=== PATIENT | female | born 1970 | race Caucasian/White ===

== ENCOUNTER → 2021-08-16 20:03 | Outpatient (CLI) | payer OTHER, SELFPAY ==
--- NOTE | 2021-08-16 | XR_ITS ---
PROCEDURE INFORMATION: Exam: XR Chest Exam date and time: 08/16/2021 12:00 AM Age: 51 years old Clinical indication: Smoker's cough; Patient HX: Productive cough, smoker, pna TECHNIQUE: Imaging protocol: XR of the chest. Views: 2 views. COMPARISON: CT ABDOMEN PELVIS WO CON 07/02/2019 2:09 PM FINDINGS: Lungs: Unremarkable. No consolidation. Pleural spaces: Unremarkable. No pleural effusion. No pneumothorax. Heart/Mediastinum: Unremarkable. No cardiomegaly. Bones/joints: Unremarkable. IMPRESSION: No acute findings.
== END ==
PROVIDERS: PCP Nurse Practitioner; Visit Provider Physician Assistant
DX: R05.9 Cough, unspecified (principal)
CPT/HCPCS: 71046

== ENCOUNTER → 2021-09-01 18:31 | Outpatient (CLI) | payer OTHER, SELFPAY | PROVIDERS: PCP Nurse Practitioner; Visit Provider Nurse Practitioner | DX: Z20.822 Contact with and (suspected) exposure to COVID-19 (principal) | CPT/HCPCS: C9803; U0003; U0005 ==

== ENCOUNTER 2021-10-16 19:18 | Emergency (ER) | payer OTHER, SELFPAY ==
[2021-10-16 20:54] VITALS: BP 142/61; PULSE 56; RESP 20; TEMP 36.6; O2SAT 98; BMI 19.1
[2021-10-16 21:16] LABS: UTC Influenza A Antigen Negative (Negative); UTC Influenza B Antigen Negative (Negative)
--- NOTE | 2021-10-16 21:28 | HMH.EDUTC ---
[facility] [place] Clinical Impression: Viral syndrome, Exposure to COVID-19 virus Pharyngitis Qualifiers: Pharyngitis/tonsillitis etiology: unspecified etiology Qualified Code(s): J02.9 - Acute pharyngitis, unspecified Disposition: Home, Self-Care Condition on Discharge: Good Instructions: DI for COVID-19 (Suspected or Confirmed ), Preventing the Spread of Coronavirus Discharge Instructions Additional Instructions: Drink plenty of fluids. Take tylenol or ibuprofen for pain or fever. Take the medications as directed. Follow up with your regular doctor. GO TO THE ER FOR ANY WORSENING SYMPTOMS Quarantine until you know the results of your covid-19 test. If it is positive, the health department should call you and give you further instructions about your length of Quarantine and other things. Notify your school or workplace of your results and follow their instructions regarding return to work/school. The cough medication (promethazine dm) will make you drowsy, so don't drive or operate heavy machinery after taking it. Prescriptions: Promethazine/Dextromethorphan [Promethazine-Dm Syrup] 5 ml PO Q6HP PRN #240 ml PRN Reason: Cough Transmission Status: Received by [id number] methylPREDNISolone [Medrol] 4 mg PO DIRECTED 6 Days #21 packet Transmission Status: Received by [id number] Azithromycin [Z-Rakesh 250mg Tab*] 250 mg PO UD DOSE PK #6 tab Transmission Status: Received by [facility] Referrals: Provider,Referral, MD [Primary Care Provider] - Forms: Work/School Release Time of Disposition: 21:56 Medical Decision Making - Medical Records Medical records reviewed: No: I reviewed the patient's medical records. - Tobias Inquiry Pt receiving controlled substance: No Vital Signs: 10/16/21 20:54 10/16/21 21:58 Temperature 97.9 F 97.9 F Temperature Source Oral Pulse Rate 56 L Pulse Rate [Left] 56 L Respiratory Rate 20 20 Blood Pressure 142/61 H Blood Pressure [Right Arm] 142/61 H Blood Pressure Mean [Right Arm] 88 02 Sat by Pulse Oximetry 98 - Lab Data Lab results reviewed: Yes: I reviewed the patient's lab results. Lab Results 10/16/21 20:43: Group A Strep Rapid Negative 10/16/21 20:44: Influenza Type A Ag Negative, Influenza Type B Ag Negative Orders (Tests/Meds): ORDERS Category Date Time Status Strep Screen Confirmation Stat Micro 10/16/21 20:43 Received [facility] [place] HPI - General Stated complaint: covid test/treated for symptoms Time Seen by Provider: 10/16/21 21:28 Mode of Arrival: Ambulatory Source of Information: Patient Limitations: No Limitations Description of Symptoms (Recalled from Triage Doc. by RN): PT C/O CHU, BODY ACHES, CHILLS AND A SORE THROAT. FAMILY IS COVID POSITIVE. EXPOSED TO FLU AT WORK. HEENT Symptoms (Recalled from RN notes): Yes Resp Symptoms (Recalled from RN notes): No Skin Symptoms (Recalled from RN notes): No MS Symptoms (Recalled from RN notes): No Functional Status (Recalled from RN notes): WNL - History of Present Illness Provider Complaint: She states that this morning she started to feel bad and have body aches. Through today she has felt progressively worse. She is coughing and having a sore throat now. She has been fully vaccinated against covid-19. - Related Data Home Medications Medication Instructions Recorded Confirmed Buspirone HCl [Buspar 10mg 0 mg .ROUTE DAILY 03/22/18 02/14/19 tablet] Metoprolol Succinate 25 mg PO DAILY 03/22/18 02/14/19 estradioL [Estradiol] 2 mg PO DAILY 03/22/18 02/14/19 lisinopriL [Lisinopril 10mg Tab] 10 mg PO DAILY 03/22/18 02/14/19 Previous Rx's Medication Instructions Recorded cephALEXin [Keflex 500mg Cap] 500 mg PO TID #30 cap 02/04/19 Azithromycin [Z-Rakesh 250mg Tab*] 250 mg PO UD DOSE PK #6 tab 10/16/21 Promethazine/Dextromethorphan 5 ml PO Q6HP PRN #240 ml 10/16/21 [Promethazine-Dm Syrup] methylPREDNISolone [Medrol] 4 mg PO DIRECTED 6
[2021-10-16 21:50] LABS: Strep Scrn Group A (Rapid) Negative (Negative)
[2021-10-16 21:58] VITALS: BP 142/61; PULSE 56; RESP 20; TEMP 36.6
== END 2021-10-16 22:00 | disposition home or self-care (01) ==
PROVIDERS: Emergency Provider Nurse Practitioner Family
DX: B34.9 Viral infection, unspecified (principal); J02.9 Acute pharyngitis, unspecified; F17.210 Nicotine dependence, cigarettes, uncomplicated
CPT/HCPCS: 87430; 87804; 99203; C9803; G0463; U0003; U0005

== ENCOUNTER → 2022-02-23 08:12 | Outpatient (CLI) | payer OTHER, SELFPAY ==
[2022-02-22 18:47] LABS: Basophils % 0.5 % (0.1-2.0); Eosinophils # 0.1 K/mm3 (0.0-0.4); Eosinophils % 0.7 % (0.1-12.0); Hematocrit 42.8 % (37.0-47.0); Hemoglobin 14.3 g/dL (12.2-16.2); Lymphocytes % 15.3 % (10-50); Mean Corpuscular HGB Conc 33.3 g/dL (31.8-35.4); Monocytes # 0.2 K/mm3 (0.1-1.0); Monocytes % 2.7 % (1.7-9.3); Neutrophils # 5.4 K/mm3 (1.8-7.8); Neutrophils % 80.8 % (37.0-80.0); Platelet Count 268 K/mm3 (142-424); Red Blood Count 3.96 M/mm3 (4.20-5.40); Red Cell Distribution Width 13.9 % (11.5-17.5); White Blood Count 6.7 K/mm3 (4.8-10.8)
[2022-02-22 18:52] LABS: Alanine Aminotransferase 25 U/L (12-78); Albumin Level 3.7 g/dl (3.5-5.0); Albumin/Globulin Ratio 1.3 (1.1-1.8); Alkaline Phosphatase 75 U/L (38-126); Anion Gap 10.4 mEq/L (5-15); Aspartate Amino Transferase 28 U/L (14-36); Blood Urea Nitrogen 14 mg/dl (7-17); Calcium 9.3 mg/dl (8.4-10.2); Carbon Dioxide 25 mmol/L (22.0-30.0); Chloride 106 mmol/L (98-107); Chol/HDL Ratio 2.4 (1-3.5); Cholesterol 181 mg/dl (140-200); Estimated Glomerular Filt Rate 105 ml/min (>60); GFR (African American) 128 ML/MIN (>60); Globulin 2.8 g/dL (1.3-3.2); Glucose 110 mg/dl (74-100); HDL Cholesterol 77 mg/dl (40-60); Potassium 4.4 mmoL/L (3.5-5.1); Sodium 137 mmol/L (136-145); Total Protein,Serum 6.5 g/dl (6.3-8.2); Triglycerides 242 mg/dl (30-150); VLDL Cholesterol 48 mg/dL (0-40)
[2022-02-22 18:56] LABS: Bilirubin,Total 0.1 mg/dl (0.2-1.3)
[2022-02-22 19:03] LABS: Direct LDL Cholesterol 70.24 mg/dL (100-129)
[2022-02-22 19:04] LABS: Hemoglobin A1C 5.1 % (4.0-6.0)
[2022-02-22 19:23] LABS: Thyroid Stimulating Hormone 0.52 uIU/mL (0.465-4.68)
[2022-02-22 19:38] LABS: 25-OH Vitamin D, Total 70.9 ng/mL (30-100)
[2022-02-24 08:22] LABS: HIV Screen 4th Generation wRfx Non Reactive (Non Reactive)
[2022-02-24 18:22] LABS: Peripheral Smear Review Scanned Result
[2022-02-26 20:09] LABS: Hep A Ab, IgM NEGATIVE; Hepatitis B Core Antibody IgM NEGATIVE; Hepatitis B Surface Antigen NEGATIVE; Hepatitis C Antibody <0.1
== END ==
PROVIDERS: Visit Provider Physician Assistant
DX: D72.829 Elevated white blood cell count, unspecified (principal); R73.9 Hyperglycemia, unspecified; Z76.89 Persons encountering health services in other specified circumstances; Z11.4 Encounter for screening for human immunodeficiency virus [HIV]
CPT/HCPCS: 80053; 80061; 80074; 82306; 83036; 84443; 85025; 86703; G0432

== ENCOUNTER → 2022-04-19 10:23 | Outpatient (CLI) | payer OTHER, SELFPAY ==
--- NOTE | 2022-04-19 10:29 | XR_ITS ---
FINAL REPORT CLINICAL HISTORY: painx 1 week ago FINDINGS: RIGHT WRIST Four views of the right wrist demonstrate no acute fracture or dislocation. The visualized joint spaces are normally aligned. The soft tissues are unremarkable. IMPRESSION: No acute bony abnormality. Reviewed, Interpreted and Dictated by Daquan Myers III, MD Transcribed by Ruth Figueroa Authenticated and [facility]
--- NOTE | 2022-04-19 10:29 | XR_ITS ---
FINAL REPORT CLINICAL HISTORY: pain after a fall 1 week ago FINDINGS: RIGHT HAND Three views demonstrate no acute fracture. There is no dislocation. The visualized joint spaces are normally aligned. The soft tissues are unremarkable. IMPRESSION: No acute bony abnormality. Reviewed, Interpreted and Dictated by Daquan Myers III, MD Transcribed by Ruth Figueroa Authenticated and [facility]
--- NOTE | 2022-04-19 10:29 | XR_ITS ---
FINAL REPORT CLINICAL HISTORY: lumbar pain FINDINGS: SACRUM/COCCYX Three views were obtained. There is no acute fracture or dislocation. The joint spaces are intact. There is no soft tissue abnormality. IMPRESSION: No acute bony abnormality. Reviewed, Interpreted and Dictated by Daquan Myers III, MD Transcribed by Ruth Figueroa Authenticated and [facility]
--- NOTE | 2022-04-19 10:30 | XR_ITS ---
FINAL REPORT CLINICAL HISTORY: lumbar pain FINDINGS: LUMBAR SPINE 5 views of the lumbar spine were obtained. There is no evidence of fracture or dislocation. The vertebral alignment is normal. There is mild degenerative change. There is facet arthropathy in the mid and lower lumbar spine. No paraspinous soft tissue abnormalities identified. IMPRESSION: Degenerative change with no acute bony abnormality. Reviewed, Interpreted and Dictated by Daquan Myers III, MD Transcribed by Ruth Figueroa Authenticated and [facility]
== END ==
PROVIDERS: PCP Physician Assistant; Visit Provider Physician Assistant
DX: M25.531 Pain in right wrist (principal); M54.50 Low back pain, unspecified; M53.3 Sacrococcygeal disorders, not elsewhere classified; W10.8XXA Fall (on) (from) other stairs and steps, initial encounter
CPT/HCPCS: 72110; 72220; 73110; 73130

== ENCOUNTER → 2022-05-05 16:12 | Outpatient (CLI) | payer OTHER, SELFPAY ==
--- NOTE | 2022-05-05 16:18 | MR_ITS ---
PROCEDURE INFORMATION: Exam: MR Right Upper Extremity Other Than Joint Without Contrast; Hand Exam date and time: 05/05/2022 4:47 PM Age: 52 years old Clinical indication: Pain; Additional info: Right thumb pain R/O ligament injury TECHNIQUE: Imaging protocol: MR of the Right upper extremity without contrast. Exam focused on the hand. COMPARISON: 1. CR XR HAND RT MIN 3V 04/19/2022 10:45 AM 2. CR XR WRIST RT W SCAPHOID 04/19/2022 10:45 AM FINDINGS: Limitations: The large nxvpq-td-qegp utilized to image the wrist through fingertips including a significant amount of the air surrounding the hand results in proportionally lower anatomic detail. Inhomogeneous fat suppression is present. The included single STIR sequence is best utilized to assess for edema. Bones and cartilage: Assessment of the wrist is limited but there is a fracture involving the body of the scaphoid with surrounding edema. Joint spaces: A mild effusion involves the thumb metacarpophalangeal joint. Collateral ligaments of digits: The thumb collateral ligaments appear grossly intact within the limits of the large ecdod-zm-cwni and nonanatomic imaging planes relative to the thumb metacarpophalangeal joint. Flexor compartment tendons: Unremarkable. No evidence of tear. Extensor compartment tendons: Unremarkable. No evidence of tear. Muscles: Unremarkable. Soft tissues: Lkaw-xq-yhugoyqa soft tissue edema involves the dorsum and hang of the hand and surrounds the thumb metacarpophalangeal joint. IMPRESSION: 1. Limited assessment of a fracture of the body of the scaphoid with surrounding edema. 2. Grossly intact thumb ligaments but study is suboptimal due to large qaooi-as-qzzc and nonanatomic orientation of imaging through the thumb. 3. Limited study due to large jksvl-ct-wmzm extending from the proximal carpal row through the fingertips and including a significant amount of surrounding air. COMMENTS: A request for a conference call with the ordering provider or ordering provider's care team was submitted at 11:53 AM EDT on 05/06/2022.
== END ==
PROVIDERS: PCP Physician Assistant; Visit Provider Physician Assistant
DX: M79.644 Pain in right finger(s) (principal)
CPT/HCPCS: 73218

== ENCOUNTER → 2022-05-10 11:09 | Outpatient (CLI) | payer OTHER, SELFPAY ==
--- NOTE | 2022-05-10 11:15 | XR_ITS ---
FINAL REPORT CLINICAL HISTORY: right wrist injury; limited mobility due to pain COMPARISON: 04/19/2022 FINDINGS: Right wrist Three views were obtained. There is no acute fracture or dislocation. There are mild degenerative changes at the radial aspect of the wrist. No soft tissue abnormality is identified. IMPRESSION: No acute process. Reviewed, Interpreted and Dictated by Daquan Myers III, MD Transcribed by Elke Francisco Authenticated and [facility]
== END ==
PROVIDERS: PCP Physician Assistant; Visit Provider Orthopaedic Surgery
DX: S69.91XA Unspecified injury of right wrist, hand and finger(s), initial encounter (principal)
CPT/HCPCS: 73110

== ENCOUNTER → 2022-05-30 11:10 | Outpatient (CLI) | payer OTHER, SELFPAY ==
--- NOTE | 2022-05-30 | CA_ITS ---
APPROVED REPORT Exam: Pharmacologic Technologist: Monica Ellington Ht: 5 ft 5 in Wt: 102 lbs BSA: 1.49 m2 HR: 50 bpm BP: 103/60 mmHg Indications: Shortness of Air Medical History Medications: Lisinopril,,,,, Metoprolol,,,,, Buspirone,,,,, Estradiol,,,,, Stress Test Details Test: LEXISCAN HR Resting HR: 52 bpm Max Heart Rate (APMHR): 169.767818 bpm Max HR Achieved: 98 bpm Target HR (85% APMHR): 143.641438 bpm % of APMHR: 57.99 Recovery HR: 60 bpm BP Resting BP: 103.0/60.0 mmHg Max BP: 107.0/55.0 mmHg Recovery BP: 107.0/55.0 mmHg ECG Clinical Exercise duration: 04:00 min Highest Stage Achieved: Exercise capacity: 1.0 METs Stress ECG Conclusion Symptoms: Shortness of air Arrhythmias/Ectopy: None ST-T Changes: < 1.[address] changes Electronically signed by : Pop Clark MD 05/30/2022 18:14:42
--- NOTE | 2022-05-30 11:15 | NM_ITS ---
APPROVED REPORT Exam: Nuclear Stress Test Indication: SOB, Palpitations, Syncope, Fatigue, AAA, HTN, DM, High cholesterol, Tobacco use Patient Location: Outpatient Stress Tech: Monica Ellington ID Tech:Karoline Burrell, ARRT, RT (R)(N) Ht: 5 ft 5 in Wt: 96 lbs Bra Size: B HR: 52 bpm BP: 103/60 mmHg BSA: 1.45 m2 TID: 1.23 BMI: 15.9 History: SOB, Palpitations, Syncope, Fatigue, AAA, HTN, DM, High cholesterol, Tobacco use Procedure: Patient received a 0.4 mg of intravenous Lexiscan, resting heart rate 52 bpm, resting blood pressure 103/60 mmHg, with Lexiscan maximum heart rate achived was 98 bpm which is Less than 85 % of the maximum predicted heart rate and blood pressure was 107/55 mmHg. With Lexiscan, patient denied any complaint of chest pain. Electrocardiogram Resting electrocardiogram showed sinus bradycardia, with Lexiscan there is less than 1.[address] segment depression noted from the baseline EKG. The EKG portion of the Lexiscan is nondiagnostic. Cardiac Stress and Resting SPECT Images: Cardiac Stress and Resting SPECT images were obtained using technetium 99m Myoview 30.6 mCi stress and 10.07 mCi at rest. Gated SPECT analysis of segmental wall motion and calculation of the ejection fraction also done. Prone images were also obtained. Cardiac stress and rest SPECT images show uniform myocardial activity without segmental perfusion abnormality, computer derived ejection fraction is 48% with no regional wall motion abnormality, right ventricle is normal size and contractility. Conclusion: 1. The EKG portion of the Lexiscan is nondiagnostic. 2. No scintigraphic evidence of reversible ischemia seen, computer derived ejection fraction is 48% with no regional wall motion abnormality, right ventricle is normal size and contractility. 3. Normal Lexiscan Myoview study. Electronically signed by : Pop Clark MD 05/30/2022 18:17:29
--- NOTE | 2022-05-30 11:15 | US_ITS ---
FINAL REPORT CLINICAL HISTORY: smoker, hypertension FINDINGS: Limited sonographic images were obtained of the abdomen to evaluate the abdominal aorta and iliac arteries. The abdominal aorta measures up to 1.8 cm in greatest dimension. The iliac arteries are within normal limits. IMPRESSION: No evidence of abdominal aortic aneurysm. Reviewed, Interpreted and Dictated by Daquan Myers III, MD Transcribed by Ruth Figueroa Authenticated and [facility]
--- NOTE | 2022-05-30 13:21 | HMH.ITSHM ---
Current Home Medications as stated by this patient Paulino Gleason or sales representative metals. []SPIRONOLACTONE MEOTPROLOL MAGNESIUM LOSARTAN FUROSEMIDE ESTRADIOL CELECOXIB BUSPIRONE BUPORPION ATORVASTATIN AMLODIPINE
== END ==
PROVIDERS: PCP Physician Assistant; Visit Provider Internal Medicine Cardiovascular Disease
DX: R09.89 Other specified symptoms and signs involving the circulatory and respiratory systems (principal); I71.4 Abdominal aortic aneurysm, without rupture; I50.30 Unspecified diastolic (congestive) heart failure; I65.29 Occlusion and stenosis of unspecified carotid artery; I10 Essential (primary) hypertension; E78.5 Hyperlipidemia, unspecified; R60.0 Localized edema; Z72.0 Tobacco use
CPT/HCPCS: 76705; 78452; 93017; A9502; J2785

== ENCOUNTER → 2022-06-10 15:50 | Outpatient (CLI) | payer OTHER, SELFPAY ==
--- NOTE | 2022-06-10 15:54 | XR_ITS ---
FINAL REPORT CLINICAL HISTORY: hand fracture FINDINGS: 3 views of the right hand were obtained. There is no acute fracture or dislocation. The joint spaces are intact. There is no soft tissue abnormality. IMPRESSION: No acute process. Reviewed, Interpreted and Dictated by Daquan Myers III, MD Transcribed by Corby Segundo Authenticated and [facility]
== END ==
PROVIDERS: PCP Physician Assistant; Visit Provider Orthopaedic Surgery
DX: S62.91XA Unspecified fracture of right hand, initial encounter for closed fracture (principal)
CPT/HCPCS: 73130

== ENCOUNTER 2022-06-20 08:12 | Day surgery (SDC) | payer OTHER, SELFPAY ==
[2022-06-20] VITALS (11 sets, daily range): BP systolic 85–120; BP diastolic 47–71; PULSE 50–60; RESP 16–22; O2SAT 92–100; BMI 16.9
--- NOTE | 2022-06-20 07:04 | IR_ITS ---
APPROVED REPORT Patient Location: Outpatient PROCEDURES Left heart catheterization Left ventriculogram Selective coronary angiogram Bilateral selective renal angiography Bare-metal stent deployment to the ostial proximal right renal artery INDICATION Coronary artery disease, Angina pectoris, Abnormal stress test, Renal artery stenosis, Renovascular hypertension Informed consent was obtained prior to the procedure. COMPLICATIONS None Estimated Blood Loss: Less than 10 mls TECHNIQUE One percent lidocaine used to anesthetize the right anterior aspect of the wrist. The right radial artery was accessed via the Seldinger technique. A 6 Mohawk sheath was placed in the right radial artery. 2.5 mg of verapamil, 800 mcg of nitroglycerin, 1mg Lidocaine and 5000 U Heparin were given through the arterial sheath. The papa catheter was also used to perform left heart catheterization, left ventriculogram and selective coronary angiogram. At the end the diagnostic heart catheterization the guide catheter was used to perform bilateral selective renal angiography. There was at least a 25 mm gradient upon pullback with a catheter from the right renal artery. At this point therapeutic heparin was administered followed by therapeutic ACT and the guide catheter was placed back into the right renal artery. A Choice PT extra-support wire was placed distally and a 6 mm x 15 mm Herculink stent was deployed at 14 sam reducing the hemodynamically and angiographically moderate stenosis to 0%. After achieving excellent angiograph results apparatus was removed the sheath was removed and hemostasis achieved using TR banding patient was transferred to the postop holding area stable condition ANGIOGRAPHIC RESULTS The left main artery Normal The left anterior descending artery Proximally normal with mild 10% luminal irregularities The circumflex artery Nondominant with mild luminal irregularities The right coronary artery Dominant with mild proximal and mid vessel 10 to 20% stenoses The PACKER ventriculogram reveals Slightly hyperdynamic at 70% The left ventricular end-diastolic pressure 25 mmHg Right renal artery singular and has a hazy moderate 50% stenosis in the ostial proximal segment which produced at least a 25 mm Lopez stenotic gradient Left renal artery singular normal IMPRESSION Mild nonflow limiting coronary disease Hyperdynamic ventricle secondary to hypertensive heart disease Elevated LVEDP secondary to hypertensive heart disease and diastolic dysfunction Severe right renal artery stenosis with successful stenting reducing the stenosis to 0% with 1 bare-metal stent PLAN 1. Dual antiplatelet therapy for 1 month 2. LDL less than 55 to be achieved with high intensity statin 3. Avoidance of tobacco products 4. Risk factor modification 5. Cardiac rehabilitation Electronically signed by : Myron Millard MD 06/20/2022 13:13:00
[2022-06-20 08:24] LABS: Coronavirus 19, PCR Not Detected (NotDetected); Influenza A, PCR Not Detected (NotDetected); Influenza B, PCR Not Detected (NotDetected)
[2022-06-20 08:40] LABS: Basophils # 0.1 K/mm3 (0-0.2); Basophils % 1.1 % (0.1-2.0); Eosinophils # 0.1 K/mm3 (0.0-0.4); Eosinophils % 2.5 % (0.1-12.0); Hematocrit 37.1 % (37.0-47.0); Hemoglobin 11.7 g/dL (12.2-16.2); Lymphocytes # 1.8 K/mm3 (0.7-4.5); Lymphocytes % 36.3 % (10-50); Mean Corpuscular HGB Conc 31.6 g/dL (31.8-35.4); Mean Corpuscular Hemoglobin 35.8 pg (27.0-31.2); Mean Corpuscular Volume 113.1 fl (81-99); Mean Platelet Volume 9.2 fl (7.4-10.4); Monocytes # 0.3 K/mm3 (0.1-1.0); Monocytes % 6.2 % (1.7-9.3); Neutrophils # 2.7 K/mm3 (1.8-7.8); Neutrophils % 53.9 % (37.0-80.0); Platelet Count 289 K/mm3 (142-424); Red Blood Count 3.28 M/mm3 (4.20-5.40); Red Cell Distribution Width 13.5 % (11.5-17.5)
[2022-06-20 08:50] LABS: Chloride 105 mmol/L (98-107); Sodium 138 mmol/L (136-145)
[2022-06-20 08:51] LABS: Potassium 3.9 mmoL/L (3.5-5.1)
[2022-06-20 08:53] LABS: Blood Urea Nitrogen 23 mg/dl (7-17); Creatinine Clearance Estimated 61 mL/min (50-200); Estimated Glomerular Filt Rate 76 ml/min (>60); GFR (African American) 92 ML/MIN (>60)
[2022-06-20 08:54] LABS: Anion Gap 12.9 mEq/L (5-15); Calcium 8.4 mg/dl (8.4-10.2); Carbon Dioxide 24 mmol/L (22.0-30.0); Glucose 96 mg/dl (74-100)
[2022-06-20 11:49] LABS: CATHL Activated Clotting Time 270 SEC (74-125)
--- NOTE | 2022-06-20 14:08 | ECG_ITS ---
APPROVED REPORT Exam: Resting ECG HR:58 bpm ECG Measurements Heart Rate 58 AXES MO 207 P 70 QRSd 98 QRS 32 QT 453 T 96 QTc [address] DEVIATION AND MODERATE T-WAVE ABNORMALITY, CONSIDER ANTEROLATERAL ISCHEMIA [-0.1+ mV T-WAVE IN V3-V6] ABNORMAL ECG INTERPRETATION BASED ON A DEFAULT AGE OF 41 YEARS UNCONFIRMED REPORT Electronically signed by : Gaetano Tucker MD 06/21/2022 21:11:13
--- NOTE | 2022-06-20 14:10 | HMH.PHACL ---
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 PATIENT VERBALIZED NO QUESTIONS AT THIS TIME.
--- NOTE | 2022-06-20 14:46 | SUR.PHASEII ---
At time of discharge patient c/o chest pain located in her midsternal area. pt denies pain radiating. Dr. Millard notified and verbal orders given. 12 lead EKG obtained, nitroglycerin administered sublinguinal, and famotidine IVP. pt monitored for another hour and discharged home, denied pain at discharge and stated relief after medication was administered.
== END 2022-06-20 14:46 | disposition home or self-care (01) ==
PROVIDERS: Internal Medicine Cardiovascular Disease; PCP Physician Assistant; Visit Provider Internal Medicine
PROC: (CPT 37236; principal; 2022-06-20 08:00)
PROC: (CPT 37236; 2022-06-20 08:00)
DX: I70.1 Atherosclerosis of renal artery (principal); E11.9 Type 2 diabetes mellitus without complications; E78.5 Hyperlipidemia, unspecified; I10 Essential (primary) hypertension; I25.118 Atherosclerotic heart disease of native coronary artery with other forms of angina pectoris; Z20.822 Contact with and (suspected) exposure to COVID-19; I65.29 Occlusion and stenosis of unspecified carotid artery; F17.210 Nicotine dependence, cigarettes, uncomplicated; Z79.899 Other long term (current) drug therapy; I77.1 Stricture of artery
CPT/HCPCS: 37236; 36251; 93458; 36415; 80048; 85025; 85347; 93005; 99152; C1725; C1769; C1876; C9803; J1644; Q9967; U0003; U0005

== ENCOUNTER → 2022-06-22 14:33 | Outpatient (CLI) | payer OTHER, SELFPAY | PROVIDERS: PCP Physician Assistant; Visit Provider Internal Medicine Pulmonary Disease | DX: R06.09 Other forms of dyspnea (principal) | CPT/HCPCS: 94060; 94618; 94726; 94729 ==

== ENCOUNTER 2022-08-02 17:43 | Emergency (ER) | payer OTHER, SELFPAY ==
--- NOTE | 2022-08-02 18:09 | XR_ITS ---
PROCEDURE INFORMATION: Exam: XR Left Hand Exam date and time: 08/02/2022 6:15 PM Age: 52 years old Clinical indication: Pain; Hand; Left TECHNIQUE: Imaging protocol: Radiologic exam of the Left hand. Views: 3 or more views. COMPARISON: No relevant prior studies available. FINDINGS: Bones/joints: No acute fracture or dislocation. Joint spaces are preserved. Normal bone mineralization. Normal carpal bone alignment. Radiocarpal joint is preserved. Soft tissues: Soft tissue swelling at the level of the 4th PIP joint. IMPRESSION: 4th PIP joint region soft tissue swelling.
[2022-08-02 19:44] VITALS: BP 162/101; PULSE 61; RESP 18; TEMP 36.7; O2SAT 98; BMI 16.6
--- NOTE | 2022-08-02 19:59 | EXP.UTC ---
Discharge Plan Disposition Patient Disposition: Home, Self-Care Condition: Good Prescriptions Prescriptions: No Action estradiol 2 mg tablet 2 mg PO DAILY nicotine 21 mg/24 hr patch 24 hour 1 patch TP Q24H Label Comments: APPLY 1 PATCH TOPICALLY EVERY 24 HOURS buspirone 10 mg tablet 10 mg PO DAILY Label Comments: TAKE 2 TABLETS BY MOUTH DAILY acetaminophen-codeine 300-30 mg tablet 1 tab PO BID PRN (Reason: pain) Qty: 14 0RF spironolactone [Aldactone] 25 mg tablet 25 mg PO DAILY Qty: 30 2RF losartan 25 mg tablet 25 mg PO DAILY Qty: 30 2RF furosemide [Lasix] 40 mg tablet 40 mg PO DAILY Qty: 30 5RF metoprolol tartrate 25 mg tablet 25 mg PO BID Qty: 60 5RF amlodipine 5 mg tablet 5 mg PO DAILY Qty: 30 5RF atorvastatin 40 mg tablet 40 mg PO HS Qty: 30 5RF magnesium oxide [MagOx] 400 mg (241.3 mg magnesium) tablet 400 mg PO DAILY Qty: 30 5RF Anoro Ellipta 62.5-25 mcg/actuation blister with device 1 inh IH DAILY Qty: 90 3RF ibuprofen 400 mg tablet 400 mg PO Q8H PRN (Reason: pain) Qty: 10 0RF ranolazine [Ranexa] 500 mg tablet extended release 12 hr 500 mg PO BID Qty: 60 3RF nitroglycerin 0.4 mg tablet, sublingual 0.4 mg sublingual Q5M PRN (Reason: chest pain) Qty: 25 0RF Rx Instructions: do not exceed 3 doses per episode bupropion HCl 150 mg tablet extended release 24 hr See Rx Instructions .ROUTE .COMPLEX Qty: 90 3RF Dose Instruction: Take 1 tablet by mouth once daily Rx Instructions: Take 1 tablet by mouth once daily clopidogrel [Plavix] 75 mg Tablet 75 mg PO DAILY Qty: 30 6RF Referrals Follow up/Referrals: Nikki Jacinto PA [Primary Care Provider] - See instructions Raul Johnson MD [Staff Physician] - See instructions Activity Restrictions/Add. Instructions Additional Instructions/Restrictions: Rest the extremity, apply ice for 15 minutes as tolerated three or four times per day, Elevate the extremity as tolerated while you are resting. Take tylenol for pain. Follow up with Dr. Johnson (orthopedics) or your orthopedist of choice. I put in a referral but you need to call his office and schedule an appointment. Follow up with your regular doctor. GO TO THE ER FOR ANY WORSENING SYMPTOMS The rings desperately need to be removed from your finger. You risk losing your finger due to the swelling. Your pain is most likely caused by the swelling of your finger. The swelling is being caused by the rings that you refuse to remove. We need to cut the rings off ROMAIN. But it is your choice not to. Clinical Impressions Clinical Impression: Injury of left ring finger Instructions Patient Instructions: Finger Sprain, DI for Finger Sprain Discharge ED Provider: Preet Salinas [facility] General Stated complaint: ao 07/29 pain in lef hand Mode of Arrival: Ambulatory Source of Information: Patient Limitations: No Limitations Time Seen by Provider: 08/02/22 19:58 HEENT Symptoms (Recalled from RN notes): No Resp Symptoms (Recalled from RN notes): No Skin Symptoms (Recalled from RN notes): No MS Symptoms (Recalled from RN notes): Yes Functional Status (Recalled from RN notes): n/a History of Present Illness Provider Complaint: She c/o possible broken or dislocated finger. She states that she got left ring finger hung in a foot ball helmet. Her son picked the helmet up and it twisted her finger. This happened 3 days ago. she has 2 rings on the finger that she refuses to remove or have cut off. She is aware of the danger of compartment syndrome. Related Data Home Medications Medication Instructions Recorded Confirmed buspirone 10 mg tablet 10 mg PO DAILY 02/22/22 07/01/22 estradiol 2 mg tablet 2 mg PO DAILY 02/22/22 07/01/22 nicotine 21 mg/24 hr daily 1 patch topical Q24H 02/22/22 07/01/22 transdermal patch Previous Rx's Medication Instructions Recorded acet
[2022-08-02 20:22] VITALS: BP 162/101; PULSE 61; RESP 18; TEMP 36.7
== END 2022-08-02 20:29 | disposition home or self-care (01) ==
PROVIDERS: Emergency Provider Nurse Practitioner Family; PCP Physician Assistant
DX: S69.92XA Unspecified injury of left wrist, hand and finger(s), initial encounter (principal)
CPT/HCPCS: 73130; 99212; G0463

== ENCOUNTER → 2022-08-11 17:19 | Outpatient (CLI) | payer OTHER, SELFPAY ==
--- NOTE | 2022-08-11 17:46 | MR_ITS ---
PROCEDURE INFORMATION: Exam: MR Right Upper Extremity Other Than Joint Without Contrast; Hand Exam date and time: 08/11/2022 5:49 PM Age: 52 years old Clinical indication: Pain; Additional info: Ruture of ulnar collateral ligament of right thumb TECHNIQUE: Imaging protocol: MR of the Right upper extremity without contrast. Exam focused on the hand. COMPARISON: MR HAND RT WO CON 05/05/2022 4:47 PM FINDINGS: Bones and cartilage: There is persistent abnormal marrow edema in the scaphoid some of which is subchondral cystic formation. Findings remain suspicious for a nondisplaced fracture here and potential developing sclerosis. This could be better detailed on CT. Joint spaces: No joint effusion. Collateral ligaments of digits: The ulnar collateral ligament is intact. There is edema and potential partial tearing of the radial collateral ligament with limited edema in the adjacent head of the 1st metacarpal. Flexor compartment tendons: Unremarkable. No evidence of tear. Extensor compartment tendons: Unremarkable. No evidence of tear. Muscles: Unremarkable. Soft tissues: Unremarkable. IMPRESSION: 1. The ulnar collateral ligament is intact. There is edema and potential partial tearing of the radial collateral ligament with limited edema in the adjacent head of the 1st metacarpal. 2. There is persistent abnormal marrow edema in the scaphoid some of which is subchondral cystic formation. Findings remain suspicious for a chronic nondisplaced fracture here and potential developing sclerosis. This could be better detailed on CT.
== END ==
PROVIDERS: PCP Physician Assistant; Visit Provider Orthopaedic Surgery Hand Surgery
DX: S63.641A Sprain of metacarpophalangeal joint of right thumb, initial encounter (principal)
CPT/HCPCS: 73218

== ENCOUNTER 2022-08-21 20:45 | Emergency (ER) | payer OTHER, SELFPAY ==
[2022-08-21 20:45] VITALS: BP 139/86; PULSE 99; RESP 16; TEMP 36.8; O2SAT 99; BMI 16.6
[2022-08-21 21:02] VITALS: BMI 16.6
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
--- NOTE | 2022-08-21 21:11 | PC.NURSE ---
PD at BS at this time
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
[2022-08-21 21:30] LABS: Basophils % 0.3 % (0.1-2.0); Eosinophils % 0.1 % (0.1-12.0); Hematocrit 33.8 % (37.0-47.0); Hemoglobin 11.1 g/dL (12.2-16.2); Lymphocytes # 1.3 K/mm3 (0.7-4.5); Lymphocytes % 13.5 % (10-50); Mean Corpuscular HGB Conc 32.9 g/dL (31.8-35.4); Mean Corpuscular Hemoglobin 35.7 pg (27.0-31.2); Mean Corpuscular Volume 108.4 fl (81-99); Mean Platelet Volume 8.4 fl (7.4-10.4); Monocytes # 0.4 K/mm3 (0.1-1.0); Neutrophils # 8.1 K/mm3 (1.8-7.8); Neutrophils % 82.1 % (37.0-80.0); Platelet Count 363 K/mm3 (142-424); Red Blood Count 3.12 M/mm3 (4.20-5.40); Red Cell Distribution Width 14.1 % (11.5-17.5); White Blood Count 9.8 K/mm3 (4.8-10.8)
[2022-08-21 21:36] LABS: Chloride 106 mmol/L (98-107); Potassium 3.7 mmoL/L (3.5-5.1); Sodium 140 mmol/L (136-145)
[2022-08-21 21:38] LABS: Blood Urea Nitrogen 27 mg/dl (7-17); Creatinine Clearance Estimated 34 mL/min (50-200); Estimated Glomerular Filt Rate 40 ml/min (>60); GFR (African American) 48 ML/MIN (>60)
[2022-08-21 21:39] LABS: Alanine Aminotransferase 26 U/L (12-78); Albumin Level 4.4 g/dl (3.5-5.0); Albumin/Globulin Ratio 1.4 (1.1-1.8); Alkaline Phosphatase 83 U/L (38-126); Anion Gap 14.7 mEq/L (5-15); Aspartate Amino Transferase 38 U/L (14-36); Bilirubin,Total 0.3 mg/dl (0.2-1.3); Carbon Dioxide 23 mmol/L (22.0-30.0); Globulin 3.1 g/dL (1.3-3.2); Total Protein,Serum 7.5 g/dl (6.3-8.2)
[2022-08-21 21:40] LABS: Calcium 9.6 mg/dl (8.4-10.2); Glucose 108 mg/dl (74-100)
--- NOTE | 2022-08-21 22:10 | PC.NURSE ---
Pt back from RAD
[2022-08-21 23:19] VITALS: BP 114/93; PULSE 82; O2SAT 100
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
[2022-08-22 00:04] VITALS: BP 115/95; PULSE 79; RESP 18; TEMP 36.6; O2SAT 99
== END 2022-08-22 00:33 | disposition home or self-care (01) ==
PROVIDERS: Emergency Provider Emergency Medicine; PCP Emergency Medicine
DX: R07.9 Chest pain, unspecified (principal); M54.50 Low back pain, unspecified; M25.562 Pain in left knee; M25.561 Pain in right knee; M25.512 Pain in left shoulder; M25.511 Pain in right shoulder; M79.632 Pain in left forearm; M79.631 Pain in right forearm; M79.645 Pain in left finger(s); M25.522 Pain in left elbow; R93.49 Abnormal radiologic findings on diagnostic imaging of other urinary organs; I25.10 Atherosclerotic heart disease of native coronary artery without angina pectoris; I73.9 Peripheral vascular disease, unspecified; I70.1 Atherosclerosis of renal artery; J84.9 Interstitial pulmonary disease, unspecified; J43.9 Emphysema, unspecified; F32.A Depression, unspecified; F41.9 Anxiety disorder, unspecified; F17.210 Nicotine dependence, cigarettes, uncomplicated; Z79.02 Long term (current) use of antithrombotics/antiplatelets; Z79.1 Long term (current) use of non-steroidal anti-inflammatories (NSAID); Z79.890 Hormone replacement therapy; Z79.899 Other long term (current) drug therapy; Z88.5 Allergy status to narcotic agent; Z88.6 Allergy status to analgesic agent; Z91.030 Bee allergy status; Y04.2XXA Assault by strike against or bumped into by another person, initial encounter
CPT/HCPCS: 70450; 70486; 71046; 71260; 72125; 72132; 72170; 73030; 73090; 73130; 73562; 74177; 80053; 85025; 99285

== ENCOUNTER 2022-12-16 10:30 | Inpatient (IN) | payer OTHER, SELFPAY ==
[2022-12-16] VITALS (52 sets, daily range): BP systolic 86–175; BP diastolic 60–99; PULSE 93–124; RESP 13–24; TEMP 6.1–43; O2SAT 97–100; BMI 15.4; BMI 16.6
--- NOTE | 2022-12-16 10:32 | XR_ITS ---
FINAL REPORT CLINICAL HISTORY: chest pain COMPARISON: 08/21/2022 FINDINGS: A single portable view of the chest was obtained. The heart size and pulmonary vascularity are within normal limits. The mediastinum is within normal limits. No acute pulmonary abnormality is identified. The bony thorax is intact. IMPRESSION: No active cardiopulmonary disease. Reviewed, Interpreted and Dictated by Daquan Myers III, MD Transcribed by Thania Dunaway Authenticated and . [facility]
--- NOTE | 2022-12-16 10:33 | ECG_ITS ---
APPROVED REPORT Exam: Resting ECG HR:129 bpm ECG Measurements Heart Rate 129 AXES NJ 144 P 74 QRSd 82 QRS -68 QT 293 T 72 QTc 369 Conclusion SINUS TACHYCARDIA PATTERN CONSISTENT WITH PULMONARY DISEASE POSSIBLE RIGHT VENTRICULAR CONDUCTION DELAY [RSR (QR) IN V1/V2] LEFT ANTERIOR FASCICULAR BLOCK [QRS AXIS <= -45, QR IN I, RS IN II] MODERATE ST DEPRESSION [0.05+ mV ST DEPRESSION] ABNORMAL ECG UNCONFIRMED REPORT Electronically signed by : Gaetano Tucker MD 12/16/2022 17:18:10
--- NOTE | 2022-12-16 10:40 | PC.NURSE ---
pt given warm blanket and pillow
[2022-12-16 10:45] LABS: Basophils % 0.2 % (0.1-2.0); Eosinophils % 0.2 % (0.1-12.0); Lymphocytes # 1.3 K/mm3 (0.7-4.5); Lymphocytes % 14.9 % (10-50); Mean Corpuscular HGB Conc 32.8 g/dL (31.8-35.4); Mean Corpuscular Hemoglobin 30.1 pg (27.0-31.2); Mean Platelet Volume 11.1 fl (7.4-10.4); Monocytes # 0.4 K/mm3 (0.1-1.0); Monocytes % 4.2 % (1.7-9.3); Neutrophils # 6.9 K/mm3 (1.8-7.8); Neutrophils % 80.5 % (37.0-80.0); Platelet Count 158 K/mm3 (142-424); Red Cell Distribution Width 17.2 % (11.5-17.5); White Blood Count 8.6 K/mm3 (4.8-10.8)
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
[2022-12-16 10:51] LABS: Chloride 107 mmol/L (98-107); Hematocrit 15.6 % (37.0-47.0); Hemoglobin 5.1 g/dL (12.2-16.2); Potassium 3.8 mmoL/L (3.5-5.1); Sodium 133 mmol/L (136-145)
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
[2022-12-16 10:53] LABS: Blood Urea Nitrogen 14 mg/dl (7-17); Estimated Glomerular Filt Rate 58 ml/min (>60); GFR (African American) 71 ML/MIN (>60)
[2022-12-16 10:54] LABS: Alanine Aminotransferase 15 U/L (12-78); Albumin Level 2.9 g/dl (3.5-5.0); Alkaline Phosphatase 127 U/L (38-126); Anion Gap 13.8 mEq/L (5-15); Aspartate Amino Transferase 17 U/L (14-36); Bilirubin,Direct 0.2 mg/dl (0.0-0.4); Bilirubin,Total 0.2 mg/dl (0.2-1.3); Calcium 8.3 mg/dl (8.4-10.2); Carbon Dioxide 16 mmol/L (22.0-30.0); Glucose 144 mg/dl (74-100); Total Protein,Serum 6.1 g/dl (6.3-8.2)
--- NOTE | 2022-12-16 11:03 | CT_ITS ---
FINAL REPORT TECHNIQUE: Postcontrast axial images through the abdomen and pelvis were performed. This study was performed with techniques to keep radiation doses as low as reasonably achievable, (ALARA). Individualized dose reduction techniques using automated exposure control or adjustment of mA and/or kV according to the patient's size were employed. CLINICAL HISTORY: abdo pain, melena COMPARISON: 08/21/2022 FINDINGS: Abdomen: The lung bases are clear. The liver is normal in size and attenuation. The spleen is unremarkable. The adrenals are normal. The pancreas is unremarkable. The right kidney demonstrates heterogeneous attenuation with multiple low-attenuation foci within it. There is a right renal artery stent. There is no hydronephrosis. The left kidney is unremarkable. The aorta is normal in caliber. No free fluid or adenopathy is identified. There is diffuse wall thickening of the stomach. There is wall thickening of the descending colon, sigmoid colon, and rectum most worrisome for colitis. Pelvis: The appendix is not identified. The patient is status post hysterectomy. The urinary bladder is unremarkable. No free fluid, free air, abscess or adenopathy is identified. IMPRESSION: Wall thickening of the stomach worrisome for gastritis. Wall thickening of the descending colon, sigmoid colon and rectum most worrisome for colitis. Heterogeneous right kidney of uncertain etiology, may represent multiple small renal infarcts. Finding is new since previous. Reviewed, Interpreted and Dictated by Daquan Myers III, MD Transcribed by Elke Francisco Authenticated and [facility]
[2022-12-16 11:08] LABS: Occult Blood,Stool Positive (Negative)
[2022-12-16 11:17] LABS: Activated Partial Thrombo Time 24.6 seconds (22.8-30.6); Prothrombin Time 10.8 seconds (10.1-12.5)
[2022-12-16 11:20] LABS: Troponin I < 0.01 ng/ml (0.00-0.034)
--- NOTE | 2022-12-16 11:26 | PC.NURSE ---
pt to radiology
[2022-12-16 11:30] LABS: Lipase 79 U/L (23-300)
--- NOTE | 2022-12-16 11:37 | PC.NURSE ---
pt back to room
--- NOTE | 2022-12-16 11:49 | PC.NURSE ---
Spoke maurisio Seo in [facility] who is working on cross-match and preparing first unit of PRBCs per transfusion order
[2022-12-16 12:09] LABS: Coronavirus 19, PCR Not Detected (NotDetected); Influenza A, PCR Not Detected (NotDetected); Influenza B, PCR Not Detected (NotDetected)
--- NOTE | 2022-12-16 13:11 | PC.NURSE ---
Spoke with Angela regarding admission. Dr. Hoskins for Upper GI bleed, anemia.
--- NOTE | 2022-12-16 13:11 | PC.NURSE ---
Dr Barnard consulting surgery Dr Renner about patient.
--- NOTE | 2022-12-16 13:11 | PC.NURSE ---
WILLIE COHEN speaking with Dr. Renner at this time
[2022-12-16 13:14] LABS: Microscopic, Urine URINE MICROSCOPIC (MICROSCOPIC)
[2022-12-16 13:19] LABS: Appearance,Urine CLEAR (Clear); Bilirubin,Urine Negative (Negative); Blood, Urine 1+ (Negative); Color,Urine YELLOW (Yellow); Glucose,Urine (UA) Negative (Negative); Ketones,Urine Negative (Negative); Leukocyte Esterase,Urine 1+ (Negative); Nitrate,Urine POSITIVE (Negative); PH,Urine 6.5 (5.0-8.5); Protein,Urine TRACE (Negative); Specific Gravity, Urine <= 1.005 (1.005-1.030); Urobilinogen,Urine 0.2 EU/dl (0.2)
--- NOTE | 2022-12-16 13:26 | PC.NURSE ---
Pt voided per bedpan, pale yellow urine, approx 300mL
--- NOTE | 2022-12-16 13:28 | PC.NURSE ---
Dr Renner in room with Patient.
--- NOTE | 2022-12-16 13:28 | PC.NURSE ---
Dr. Renner at BS
--- NOTE | 2022-12-16 13:41 | EXP.SURG.CON ---
History of Present Illness *Admission Date: 12/16/22 *Reason for visit:: Anemia; melena/upper gastrointestinal hemorrhage *History of present illness: This is a 52-year-old female seen in consultation after evaluation in the emergency department for chest pain, generalized weakness, and melena. Evaluation revealed a hemoglobin of 5.1 and the surgical service was consulted for evaluation and management. Please see HPI forwarded from emergency department evaluation below. Forwarded from emergency department evaluation: General Chief complaint: Chest Pain Stated complaint: CP Time Seen by Provider: 12/16/22 10:51 History of Present Illness HPI narrative: History obtained from patient, , and daughter.? She has felt ill since Monday, 6 days ago.? She has general weakness and malaise.? Vomiting.? Diarrhea which has been black in color.? She has pain across her ribs diffusely lower anterior chest.? She has pain in both of her hips.? She has a sore throat only on the left side which she has had for about 1 week.? Denies cough or fever. No prior history of GI bleed.? She is a nondrinker.? She is on Plavix due to a renal stent that she had last July.? No other anticoagulants.? She is a smoker, but has not smoked for 1 week. [facility] Disclaimer: The information contained in this section may have been updated after the patient was seen, as this information can be updated by other users. Medical History (Updated 12/16/22 @ 13:12 by Spencer Barnard MD) Abnormal computerized axial tomography of chest COPD (chronic obstructive pulmonary disease) COPD mixed type Coronary artery disease Depression with anxiety Dyspnea on exertion Dyspnea on exertion Emphysema lung History of COPD History of smoking 30 or more pack years ILD (interstitial lung disease) PAD (peripheral artery disease) Renal artery stenosis Stopped smoking with greater than 30 pack year history Tobacco abuse Surgical History History of knee surgery History of renal stent Family History Other No significant family history Social History Smoking Status: Current every day smoker tobacco type: cigarettes packs per day: 1 alcohol intake: never substance use type: denies use current occupational status: employed and unemployed Travel in the last 8 weeks: None household members: spouse housing: house caffeine: Yes Review of Systems Constitutional Constitutional: Denies headache(s) and Reports weakness ENT Ears, Nose, Mouth, and Throat: Denies headache(s) *Musculoskeletal Musculoskeletal: Denies numbness *Neurologic Neurologic: Denies headache(s), Denies numbness and Reports weakness Meds Home Medications and Allergies Home Medications Medication Instructions Recorded Confirmed Type buspirone 10 mg tablet 10 mg PO DAILY 02/22/22 09/02/22 History estradiol 2 mg tablet 2 mg PO DAILY 02/22/22 09/02/22 History atorvastatin 40 mg tablet 40 mg PO HS #30 tabs 05/06/22 09/02/22 Rx furosemide 40 mg tablet (Lasix) 40 mg PO DAILY #30 tabs 05/06/22 09/02/22 Rx metoprolol tartrate 25 mg tablet 25 mg PO BID #60 tabs 05/06/22 09/02/22 Rx bupropion HCl 150 mg 24 hr tablet, See Rx Instructions .Route 06/03/22 09/02/22 Rx extended release .COMPLEX #90 tabs clopidogrel 75 mg tablet (Plavix) 75 mg PO DAILY #30 tabs 06/20/22 09/02/22 Rx umeclidinium 62.5 mcg-vilanterol 1 inh inhalation DAILY #90 ea 06/22/22 09/02/22 Rx 25 mcg/actuation powdr for inhalation (Anoro Ellipta) nitroglycerin 0.4 mg sublingual 0.4 mg sublingual Q5M PRN chest 07/01/22 09/02/22 Rx tablet pain #25 tabs ranolazine 500 mg tablet,extended 500 mg PO BID #60 tabs 07/01/22 09/02/22 Rx release,12 hr (Ranexa) diclofenac sodium 1 % topical gel 2 g topical QID #100 grams 08/24/22 09/02/22 Rx ibuprofen 800 mg tablet 800 mg PO 11
[2022-12-16 13:52] LABS: Bacteria,Urine 3+ /lpf; RBC,Urine Occasional #/hpf (0-3)
--- NOTE | 2022-12-16 14:14 | PC.NURSE ---
Report given to ESPERANZA Ochoa for pt admission to 207, condition, evaluation results, disposition and plan of care; no further questions, inpt team will come and transport pt on stretcher
--- NOTE | 2022-12-16 14:29 | PC.NURSE ---
RN from med/surg is down to get patient, Clinton Mccormick RN at BS
--- NOTE | 2022-12-16 14:40 | PC.NURSE ---
arrived to floor by stretcher from ED
[2022-12-16 15:18] LABS: Troponin I < 0.01 ng/ml (0.00-0.034)
--- NOTE | 2022-12-16 15:20 | HMH.PHAINT1 ---
Pharmacy Intervention Comments: MEDICATION RECONCILIATION COMPLETE USING LIST FROM MOST RECENT MD OFFICE VISIT AND EXTERNAL PHARMACY FILL HISTORY.
--- NOTE | 2022-12-16 15:28 | EXP.HP ---
History of Present Illness *Admission Date: 12/16/22 *Reason for visit:: Chief complaint: Weakness *History of present illness: This is a 52-year-old female who presents to [facility] emergency department after experiencing nausea vomiting and melanotic diarrhea for 1 week. She reports a crescendo of her symptomatology and started feeling weak so she requested her and daughter to bring her to the ED. 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 She reports that she currently takes Plavix and ibuprofen. She denies NSAID overuse. She reports her usual state of health when she started experiencing waves of nausea which proceeded to associated emesis and watery diarrhea that transition to melanotic diarrhea. She denied hematemesis. She reported initially experiencing tenesmus and epigastric pain. Her initial pain was rated greater than a 7 on a 1-10 pain scale but it has acquiesced. She identified no associated fever but does endorse chills. She reports being able to keep fluids down but describes decreased food consumption. She has identified no rashes, sick contacts, travel abroad or identified contaminated food. She reports no associated jaundice. She reports no previous history of EGD or colonoscopies. In the ED her presenting hemoglobin is 5.1 with normal platelet count, white blood cell count and normal INR. Her MCV is 92. Her electrolytes identify a 9 anion gap metabolic acidosis with a normal creatinine of 1.0. [facility] Medical History (Updated 12/16/22 @ 15:52 by Jose Alfredo Galvan MD) COPD (chronic obstructive pulmonary disease) Coronary artery disease Depression with anxiety ILD (interstitial lung disease) PAD (peripheral artery disease) Renal artery stenosis Tobacco abuse Surgical History (Updated 12/16/22 @ 15:52 by Jose Alfredo Galvan MD) History of knee surgery History of left heart catheterization History of renal stent Family History (Updated 12/16/22 @ 15:53 by Jose Alfredo Galvan MD) Mother Surgical complication Father Pneumonia Other Family history of hyperlipidemia Family history of hypertension No significant family history Social History (Updated 12/16/22 @ 14:58 by Krystal Arroyo RN) Smoking Status: Current every day smoker tobacco type: cigarettes packs per day: 1 alcohol intake: never substance use type: denies use current occupational status: employed and unemployed Travel in the last 8 weeks: None household members: spouse housing: house caffeine: Yes Review of Systems Review of Systems Review of systems:: pertinent systems reviewed and negative unless documented below Constitutional Constitutional: Denies headache(s) and Reports weakness ENT Ears, Nose, Mouth, and Throat: Denies headache(s) *Musculoskeletal Musculoskeletal: Denies numbness *Neurologic Neurologic: Denies headache(s), Denies numbness and Reports weakness Meds Home Medications and Allergies Home Medications Medication Instructions Recorded Confirmed Type buspirone 10 mg tablet 10 mg PO TID Anxiety 02/22/22 12/16/22 History estradiol 2 mg tablet 2 mg PO DAILY HORMONE REPLACEMENT 02/22/22 12/16/22 History nitroglycerin 0.4 mg sublingual 0.4 mg sublingual Q5M PRN chest 07/01/22 12/16/22 Rx tablet pain #25 tabs ibuprofen 800 mg tablet 800 mg PO Q8HP PRN Mild Pain 08/24/22 12/16/22 History (Scale Score 1-4) amlodipine 5 mg tablet 5 mg PO DAILY High blood pressure 12/16/22 12/16/22 History atorvastatin 40 mg tablet 40 mg PO HS Cholesterol 12/16/22 12/16/22 History bupropion HCl 150 mg 24 hr tablet, 150 mg PO DAILY Depression 12/16/22 12/16/22 History extended release clopidogrel 75 mg tablet (Plavi
--- NOTE | 2022-12-16 17:06 | PC.NURSE ---
A&OX4. TOLERATING RA WELL SINCE ARRIVAL TO FLOOR. PT FAMILY AT BEDSIDE. PT IS IN GOOD SPIRITS. TOLERATING BLOOD ADMINISTRATION WELL. HAS BEEN UP TO BEDSIDE COMMODE, STANDBY ASSIST. TOLERATED WELL. HAS NOT HAD A BM THUS FAR. PT HAS C/O INTERMITTENT ABD PAIN, TX WITH MEDICATION PER NOV. ALSO C/O NAUSEA, TX PER MAR WELL. PT HAS TOLERATED SOME JELLO AND SIPS OF WATER. PT DOES HAVE PUSTULE TO R THUMB ALONG WITH SOME REDNESS AND TENDERNESS. CONSULT TO ORTHO HAS BEEN PUT IN. NO OTHER NEEDS AT THIS TIME, VSS.
--- NOTE | 2022-12-16 17:08 | XR_ITS ---
PROCEDURE INFORMATION: Exam: XR Right Hand Exam date and time: 12/16/2022 5:44 PM Age: 52 years old Clinical indication: Pain; Swelling; Fingers; Right; Finger(s); Prior surgery; Surgery date: 1-6 months; Surgery type: Patient said previous SX in September 2022, not sure what type, she stated there was metal but none visualized, she could not get her rings off; Additional info: Right hand infect TECHNIQUE: Imaging protocol: Radiologic exam of the right hand. Views: 3 or more views. Total images: 3 COMPARISON: MR HAND RT WO CON 08/11/2022 5:49 PM FINDINGS: Bones/joints: No evidence of acute fracture or dislocation. Soft tissues: Soft tissues are within normal limits. Other findings: Rings overlie the 3rd and 4th fingers. IMPRESSION: No evidence of acute fracture or dislocation.
--- NOTE | 2022-12-16 17:17 | PC.NURSE ---
PT STATED THAT SHE IS HAVING SOME MONEY PROBLEMS AT THE TIME, ALONG WITH ISSUES WITH TRANSPORTATION. CM CONSULT PUT IN.
--- NOTE | 2022-12-16 17:27 | PC.WOUNDNOTE ---
PUSTULE, SWELLING AND REDNESS NOTED TO R THUMB.
--- NOTE | 2022-12-16 18:00 | PC.NURSE ---
LATE ENTRY: PATIENT'S FIRST UNIT OF BLOOD WAS COMPLETED INFUSING UPON THIS NURSE'S ARRIVAL TO ED TO GET PATIENT.
[2022-12-16 18:01] LABS: Troponin I < 0.01 ng/ml (0.00-0.034)
--- NOTE | 2022-12-16 18:05 | EXP.ANES.CKL ---
[facility] Disclaimer: The information contained in this section may have been updated after the patient was seen, as this information can be updated by other users. Medical History COPD (chronic obstructive pulmonary disease) Coronary artery disease Depression with anxiety ILD (interstitial lung disease) PAD (peripheral artery disease) Renal artery stenosis Tobacco abuse Surgical History History of knee surgery History of left heart catheterization History of renal stent Family History Mother Surgical complication Father Pneumonia Other Family history of hyperlipidemia Family history of hypertension No significant family history Social History Smoking Status: Current every day smoker tobacco type: cigarettes packs per day: 1 alcohol intake: never substance use type: denies use current occupational status: employed and unemployed Travel in the last 8 weeks: None household members: spouse housing: house caffeine: Yes [facility] Anesthesia Checklist Patient Identification Patient Identification: Arm Band and Verbal (Name & ) Structural Data Admitted From: Inpatient Planned Operative Procedure/s: I & D Consent for Planned Operative Procedure(s) Verified: Yes Chart Verification Results Verified: CBC Airway Assessment C-Spine Mobility Assessed: Yes TMJ Mobility Assessed: Yes Dentition: Dentures-good fit Neurological Assessment Level of Consciousness: Awake Hx Seizures: No Numbness or tingling in extremities: No Anesthesia Plan Anesthesia Risk discussed: Yes Anesthesia Plan: Verified ASA Class: III (III E) Anesthesia Type: MAC
--- NOTE | 2022-12-16 18:30 | PC.NURSE ---
AT 1810, THIS NURSE RECEIVED CALL FROM [facility] IN OR STATING MD BRANCH IS GOING TO PERFORM I&D ON PATIENT'S THUMB TONIGHT. ASKED IF WE COULD BRING PATIENT TO PRE-OP. PT BLOOD FINISHED AT 1809. COMPLETION VITALS DOCUMENTED. ORDER FOR 2 HR POST H&H ENTERED. PT WILL BE DUE FOR 1 HR POST TRANSFUSION VITALS AT 1909. REPORT GIVEN TO SURGERY STAFF. PT FAMILY IN PRE-OP WITH HER.
--- NOTE | 2022-12-16 18:38 | PC.NURSE ---
AT 1545 BLOOD WAS VERIFIED BEFORE TRANSFUSION BY Romelia ZAMBRANO AND Jorge GUZMAN RN. COMPUTER ERROR OCCURRED, RE-VERIFICATION WAS COMPLETED.
--- NOTE | 2022-12-16 19:12 | EXP.ORTH.CON ---
History of Present Illness *Admission Date: 12/16/22 *History of present illness: This is a 52-year-old female who presents to [facility] emergency department after experiencing nausea vomiting and melanotic diarrhea for 1 week. She reports a crescendo of her symptomatology and started feeling weak so she requested her and daughter to bring her to the ED. 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 She reports that she currently takes Plavix and ibuprofen. She denies NSAID overuse. She reports her usual state of health when she started experiencing waves of nausea which proceeded to associated emesis and watery diarrhea that transition to melanotic diarrhea. She denied hematemesis. She reported initially experiencing tenesmus and epigastric pain. Her initial pain was rated greater than a 7 on a 1-10 pain scale but it has acquiesced. She identified no associated fever but does endorse chills. She reports being able to keep fluids down but describes decreased food consumption. She has identified no rashes, sick contacts, travel abroad or identified contaminated food. She reports no associated jaundice. She reports no previous history of EGD or colonoscopies. In the ED her presenting hemoglobin is 5.1 with normal platelet count, white blood cell count and normal INR. Her MCV is 92. Her electrolytes identify a 9 anion gap metabolic acidosis with a normal creatinine of 1.0. [facility] Disclaimer: The information contained in this section may have been updated after the patient was seen, as this information can be updated by other users. Medical History COPD (chronic obstructive pulmonary disease) Coronary artery disease Depression with anxiety ILD (interstitial lung disease) PAD (peripheral artery disease) Renal artery stenosis Tobacco abuse Surgical History History of knee surgery History of left heart catheterization History of renal stent Family History Mother Surgical complication Father Pneumonia Other Family history of hyperlipidemia Family history of hypertension No significant family history Social History Smoking Status: Current every day smoker tobacco type: cigarettes packs per day: 1 alcohol intake: never substance use type: denies use current occupational status: employed and unemployed Travel in the last 8 weeks: None household members: spouse housing: house caffeine: Yes Review of Systems Constitutional Constitutional: Denies headache(s) and Reports weakness ENT Ears, Nose, Mouth, and Throat: Denies headache(s) *Musculoskeletal Musculoskeletal: Denies numbness *Neurologic Neurologic: Denies headache(s), Denies numbness and Reports weakness Meds Home Medications and Allergies Home Medications Medication Instructions Recorded Confirmed Type buspirone 10 mg tablet 10 mg PO TID Anxiety 02/22/22 12/16/22 History estradiol 2 mg tablet 2 mg PO DAILY HORMONE REPLACEMENT 02/22/22 12/16/22 History nitroglycerin 0.4 mg sublingual 0.4 mg sublingual Q5M PRN chest 07/01/22 12/16/22 Rx tablet pain #25 tabs ibuprofen 800 mg tablet 800 mg PO Q8HP PRN Mild Pain 08/24/22 12/16/22 History (Scale Score 1-4) amlodipine 5 mg tablet 5 mg PO DAILY High blood pressure 12/16/22 12/16/22 History atorvastatin 40 mg tablet 40 mg PO HS Cholesterol 12/16/22 12/16/22 History bupropion HCl 150 mg 24 hr tablet, 150 mg PO DAILY Depression 12/16/22 12/16/22 History extended release deng
--- NOTE | 2022-12-16 20:07 | EXP.OP.NOTE ---
Date of procedure: 12/16/22 Pre-op Diagnosis:: Right hand surgical site infection Post-op Diagnosis:: Same Procedure performed:: 55637: Incision and drainage of complex right hand surgical site infection Surgeon:: Gaurav Sandoval JR, MD FACING CUTTING MACHINE OPERATOR:: Ha Barth Anesthesia: MAC Estimated blood loss (mL): 30 Clinical Note:: 52-year-old female with right radial collateral ligament reconstruction with internal brace. She developed redness and swelling, had impending purulent drainage. I had a discussion with her and her family regarding further management, recommended right hand debridement irrigation with internal brace removal. They are amenable with the plan. We discussed the risk and benefits of surgery. Risks included but were not limited to pain, bleeding, infection, damage to adjacent structures, need for further surgery, wound healing complications, loss of limb, . Patient expressed verbal consent and written consent was obtained for the above procedure. Operative findings:: There was an overgrown nylon suture that I suspect was the nidus of infection. After exposing this, the internal brace was visible and was removed Operative note:: Patient was identified in preoperative holding. Operative site was marked in indelible ink. History, physical, consent were reviewed and updated. Patient was surrendered to the anesthesia team, taken to the operative suite, placed supine on a well-padded operative table. A nonsterile tourniquet placed on the proximal brachium. Anesthesia was induced. The operative extremity was prepped and draped in the usual sterile fashion. The operative team donned sterile gowns and gloves and a timeout was called. All in attendance agreed regarding the patient's identity, procedure, operative site. Weight-based dose of antibiotics was given prior to incision. I elevated the operative extremity and raise the tourniquet. I made a longitudinal incision, encountered purulence, sent swab specimen for culture. There was an overgrown what appeared to be nylon suture. I was able to visualize the middle portion of the internal brace after incising through skin and removing the suture, as such I considered the internal brace and anchors to be contaminated. As such, I remove the anchors as well as the eyelets, the internal brace, and the nonabsorbable suture that was located adjacent to the phalangeal anchor. I copiously irrigated the wound with Irrisept followed by saline, took down tourniquet, achieved hemostasis from the skin but noted bloody oozing from the anchor sites. I reinflated the tourniquet, irrigated once more, applied vancomycin powder, closed the wound with nylon sutur. Sterile dressings applied as well as a thumb spica splint. Counts were correct x2. There were no apparent complications. I was present and scrubbed for the entire case. Condition: stable Disposition: PACU Specimens:: Swab specimen sent for culture, explanted internal brace sent for pathology Complications:: None apparent
--- NOTE | 2022-12-16 20:18 | PC.NURSE ---
LAB HERE TO DRAW POST BLD INFUSION H&H BUT PATIENT IS STILL OFF THE FLOOR IN THE OR. WILL NOTIFY LAB WHEN PATIENT BACK TO FLOOR.
--- NOTE | 2022-12-16 20:28 | EXP.ANES.I ---
[facility] Anesthesia Record Part I Anesthesia Record I Intake, IV Amount: 300 Estimated blood loss (mL): 2 Urine output (mL): 0 Blood Pressure: 130/66 SaO2: 97 Pulse Rate: 94 Respiratory Rate: 16 Temperature: 98 F Patient is:: Drowsy Stable to PACU at:: 20:23
--- NOTE | 2022-12-16 20:48 | PC.NURSE ---
AT 2044 RECEIVED PHONE REPORT FROM PACU /[facility] RN/PACU NURSE.
--- NOTE | 2022-12-16 21:07 | SUR.PHASEII ---
2042-detailed report called to Aubrie MATA. Pt transported via bed to 2nd floor. Left in care of Aubrie. @ BS.
[2022-12-16 21:49] LABS: Hematocrit 25.9 % (37.0-47.0)
[2022-12-16 21:56] LABS: Hemoglobin 8.9 g/dL (12.2-16.2)
--- NOTE | 2022-12-16 22:19 | PC.NURSE ---
PATIENT ARRIVED FROM PACU AT 2049. SURGICAL DRSG/SPLINT/JOSE ANGEL WRAP C/D/I. S/P I&D RIGHT HAND/THUMB INFECTION AND REMOVAL OF INTERNAL BRACE, PATIENT A/O X 4. CAN WIGGLE FINGERS AND HAS SENSATION. DENIES PAIN AT THIS TIME. CAP REFILL BRISK. SCOPOLAMINE PATCH PRESENT BEHIND RIGHT EAR. VSS/AFEBRILE. SPOUSE AND DAUGHTER AT BEDSIDE.
--- NOTE | 2022-12-16 22:34 | PC.NURSE ---
NPO AFTER MN FOR EGD.
--- NOTE | 2022-12-16 23:00 | PC.NURSE ---
1 HOUR POST TRANSFUSION VITAL WAS NOT CHARTED IN THE TAR. VITALS RECEIVED FROM OR PAPERWORK AND PLACED IN TAR TO COMPLETE VITALS.
[2022-12-17] VITALS (26 sets, daily range): BP systolic 100–172; BP diastolic 46–92; PULSE 71–114; RESP 16–20; TEMP 36.2–38.1; O2SAT 97–100; BMI 17.5
--- NOTE | 2022-12-17 03:44 | PC.NURSE ---
patient has been npo since wa for egd this am. keeps right hand elevated on pillow. has been medicated x 2 for hand pain 07/11. receives good relief with iv dilaudid 2mg, has low grade temp this am. 100.5 at 0235 and medicated with tylenol 650 mg po with sips of water. spouse at bedside.
[2022-12-17 07:09] LABS: Basophils % 0.3 % (0.1-2.0); Eosinophils % 0.2 % (0.1-12.0); Hematocrit 22.5 % (37.0-47.0); Lymphocytes # 1.1 K/mm3 (0.7-4.5); Mean Corpuscular HGB Conc 33.7 g/dL (31.8-35.4); Mean Corpuscular Hemoglobin 30.2 pg (27.0-31.2); Mean Corpuscular Volume 89.4 fl (81-99); Mean Platelet Volume 10.6 fl (7.4-10.4); Monocytes # 0.4 K/mm3 (0.1-1.0); Monocytes % 5.7 % (1.7-9.3); Neutrophils # 5.5 K/mm3 (1.8-7.8); Neutrophils % 78.9 % (37.0-80.0); Platelet Count 130 K/mm3 (142-424); Red Blood Count 2.51 M/mm3 (4.20-5.40); Red Cell Distribution Width 17.6 % (11.5-17.5)
[2022-12-17 07:19] LABS: Anion Gap 8.4 mEq/L (5-15); Blood Urea Nitrogen 7 mg/dl (7-17); Calcium 7.5 mg/dl (8.4-10.2); Carbon Dioxide 17 mmol/L (22.0-30.0); Chloride 109 mmol/L (98-107); Creatinine Clearance Estimated 63 mL/min (50-200); Estimated Glomerular Filt Rate 76 ml/min (>60); GFR (African American) 92 ML/MIN (>60); Glucose 96 mg/dl (74-100); Magnesium 2.2 mg/dl (1.6-2.3); Potassium 3.4 mmoL/L (3.5-5.1); Sodium 131 mmol/L (136-145)
[2022-12-17 07:22] LABS: C-Reactive Protein 98.5 mg/L (0-4)
--- NOTE | 2022-12-17 07:22 | EXP.SURG.PN ---
Subjective Patient reports: no new complaints and feels better Exam Data for Last 24 hours Vital signs and Labs for Last 24 Hours: Temp Pulse Resp BP Pulse Ox 99.0 F 114 H 16 145/82 H 99 12/17/22 03:35 12/17/22 03:57 12/17/22 03:35 12/17/22 03:35 12/17/22 03:35 Laboratory Results - last 24 hr 12/16/22 10:35: WBC 8.6, RBC 1.70 L*, Hgb 5.1 L*, Hct 15.6 L*, MCV 92.0, MCH 30.1, MCHC 32.8, RDW 17.2, Plt Count 158, MPV 11.1 H, Neut % (Auto) 80.5 H, Lymph % (Auto) 14.9, [place] % (Auto) 4.2, Eos % (Auto) 0.2, Baso % (Auto) 0.2, Neut # (Auto) 6.9, Lymph # (Auto) 1.3, [place] # (Auto) 0.4, Eos # (Auto) 0.0, Baso # (Auto) 0.0 12/16/22 10:35: Sodium 133 L, Potassium 3.8, Chloride 107, Carbon Dioxide 16 L, Anion Gap 13.8, BUN 14, Creatinine 1.00, Estimated GFR 58 L, Est GFR ( Amer) 71, Glucose 144 H, Calcium 8.3 L, Total Bilirubin 0.2, Direct Bilirubin 0.2, Conjugated Bilirubin 0.0, Indirect Bilirubin 0.0, Unconjugated Bilirubin 0.0, AST 17, ALT 15, Alkaline Phosphatase 127 H, Troponin I < 0.01, Total Protein 6.1 L, Albumin 2.9 L 12/16/22 10:35: PT 10.8, INR 1.00, APTT 24.6 12/16/22 10:35: Lipase 79 12/16/22 10:35: Blood Type Confirm O Positive 12/16/22 11:00: Stool Occult Blood Positive A 12/16/22 11:00: Blood Type O Positive, Antibody Screen Negative, Crossmatch (AHG) See Detail 12/16/22 12:05: SARS-CoV-2 (PCR) Not detected, Influenza A Untype (PCR) Not detected, Influenza Type B (PCR) Not detected 12/16/22 13:07: Urine Color Yellow, Urine Appearance Clear, Urine pH 6.5, Ur Specific [place] <= 1.005, Urine Protein Trace, Urine Glucose (UA) Negative, Urine Ketones Negative, Urine Blood 1+, Urine Nitrate Positive, Urine Bilirubin Negative, Urine Urobilinogen 0.2, Ur Leukocyte Esterase 1+ A, Urine RBC Occasional, Urine WBC 3-5, Ur Squamous Epith Cells 3-5, Urine Bacteria 3+ 12/16/22 14:33: Troponin I < 0.01 12/16/22 17:15: Troponin I < 0.01 12/16/22 21:42: Hgb 8.9 L D, Hct 25.9 L 12/17/22 06:50: WBC 7.0, RBC 2.51 L D, Hct 22.5 L, MCV 89.4, MCH 30.2, MCHC 33.7, RDW 17.6 H, Plt Count 130 L, MPV 10.6 H, Neut % (Auto) 78.9, Lymph % (Auto) 15.0, [place] % (Auto) 5.7, Eos % (Auto) 0.2, Baso % (Auto) 0.3, Neut # (Auto) 5.5, Lymph # (Auto) 1.1, [place] # (Auto) 0.4, Eos # (Auto) 0.0, Baso # (Auto) 0.0 I & O for Last 24 hours: Intake & Output 12/14/22 12/15/22 12/16/22 12/17/22 11:59 11:59 11:59 11:59 Intake Total 1690 / 1690 Output Total 2650 / 2650 Balance -960 / -960 Weight 90 lb 105 lb 3.2 oz Microbiology Reports for the Last 24 Hours: Microbiology 12/16/22 19:39 Hand,Right - Right Thumb Gram Stain - Final Narrative: Underwent incision and drainage of complex right hand surgical site infection (Dr. Sandoval) yesterday evening. Constitutional Constitutional: no acute distress *Routine Respiratory Exam Respiratory: Absent respiratory distress *Routine Cardiovascular Exam Cardiovascular: Present tachycardia Progress Note: A&P Assessment and plan (1) Acute blood loss anemia: Status: Acute Assessment and plan: [id number] response to a 2 unit transfusion (post-transfusion hemoglobin 8.9). Follow-up AM hemoglobin Continue proton pump inhibition EGD this AM (2) Acute upper gastrointestinal bleeding: Status: Acute Assessment and plan: (See #1 above) (3) Hand abscess: Status: Acute Assessment and plan: Management as per orthopedic service and primary service
[2022-12-17 07:35] LABS: Erythrocyte Sedimentation Rate > 140 mm/hr (0-30); Hemoglobin 7.6 g/dL (12.2-16.2)
[2022-12-17 08:15] LABS: Procalcitonin 7.06 ng/mL (0.0-2.0)
--- NOTE | 2022-12-17 08:19 | HMH.SCOPE ---
Procedure: Date: 12/17/22 Patient Date of :: 1970 Procedure Performed:: Esophagogastroduodenoscopy with biopsy Indications:: Anemia/upper gastrointestinal hemorrhage Performing Provider:: Lars Renner MD Referring Provider:: Hospitalist Service Sedation:: Monitored anesthesia care Procedure:: After informed consent was obtained the patient was taken to the endoscopy suite. Sedation ensued after the patient was transferred to the left lateral decubitus position. Pulse, blood pressure, and oxygen saturation were monitored throughout the procedure. The endoscope was advanced beyond the duodenal bulb. Retroflexion within the gastric lumen was accomplished. The gastroscope was carefully removed and the patient was transferred to recovery in stable condition. Please see findings and specimens below for detail. Findings:: Multiple complex gastric ulcerations (see below) No sign of active hemorrhage No blood clot/old blood visible within the gastric lumen or duodenal Note: Lobulated 2.5 cm cratered ulceration in prepyloric region without visible clot or sign of recent hemorrhage Small shallow crater ulceration in antrum Complex shallow linear 2 x 3 cm ulceration in mid/distal gastric body with friable central eschar Multiple smaller shallow linear ulcerations throughout mid/distal gastric body Specimens:: Biopsy of prepyloric ulceration Biopsy of mid/distal gastric body ulceration Recommendations:: Follow-up pathology Continue proton pump inhibition Repeat EGD in 6-8 weeks (unless needed more urgently) Complications:: No immediate Estimated blood obtained (mL): 1
--- NOTE | 2022-12-17 08:25 | EXP.PN ---
Subjective *Date: 12/17/22 *Time: 08:48 Interval history: Date of service December 17, 2022 The patient reports no acute events overnight. Her and daughter at bedside. I am accompanied by her nurse Maura. She is back from her morning EGD. She underwent right thumb exploration in the OR by orthopedics yesterday. She reports tolerating her medications including her IV antibiotic with no adverse events. Her morning labs have been reviewed, discussed and I personally interpreted her labs and imaging as follows: Her right thumb x-ray identifies no acute disease. Her morning CBC identifies a normal white blood cell count with hemoglobin 7.6, hematocrit 22.5, platelet count 130, ESR elevated at 140, CRP 98, magnesium 2.2, electrolytes with sodium 131, potassium 3.4, chloride 109, CO2 17, BUN 7, creatinine 0.8, glucose trend under 150. Exam Data for Last 24 hours Vital signs and Labs for Last 24 Hours: Temp Pulse Resp BP Pulse Ox 99.1 F 86 19 147/75 H 99 12/17/22 07:52 12/17/22 07:52 12/17/22 07:52 12/17/22 07:52 12/17/22 03:35 Laboratory Results - last 24 hr 12/16/22 10:35: WBC 8.6, RBC 1.70 L*, Hgb 5.1 L*, Hct 15.6 L*, MCV 92.0, MCH 30.1, MCHC 32.8, RDW 17.2, Plt Count 158, MPV 11.1 H, Neut % (Auto) 80.5 H, Lymph % (Auto) 14.9, [place] % (Auto) 4.2, Eos % (Auto) 0.2, Baso % (Auto) 0.2, Neut # (Auto) 6.9, Lymph # (Auto) 1.3, [place] # (Auto) 0.4, Eos # (Auto) 0.0, Baso # (Auto) 0.0 12/16/22 10:35: Sodium 133 L, Potassium 3.8, Chloride 107, Carbon Dioxide 16 L, Anion Gap 13.8, BUN 14, Creatinine 1.00, Estimated GFR 58 L, Est GFR ( Amer) 71, Glucose 144 H, Calcium 8.3 L, Total Bilirubin 0.2, Direct Bilirubin 0.2, Conjugated Bilirubin 0.0, Indirect Bilirubin 0.0, Unconjugated Bilirubin 0.0, AST 17, ALT 15, Alkaline Phosphatase 127 H, Troponin I < 0.01, Total Protein 6.1 L, Albumin 2.9 L 12/16/22 10:35: PT 10.8, INR 1.00, APTT 24.6 12/16/22 10:35: Lipase 79 12/16/22 10:35: Blood Type Confirm O Positive 12/16/22 11:00: Stool Occult Blood Positive A 12/16/22 11:00: Blood Type O Positive, Antibody Screen Negative, Crossmatch (AHG) See Detail 12/16/22 12:05: SARS-CoV-2 (PCR) Not detected, Influenza A Untype (PCR) Not detected, Influenza Type B (PCR) Not detected 12/16/22 13:07: Urine Color Yellow, Urine Appearance Clear, Urine pH 6.5, Ur Specific [place] <= 1.005, Urine Protein Trace, Urine Glucose (UA) Negative, Urine Ketones Negative, Urine Blood 1+, Urine Nitrate Positive, Urine Bilirubin Negative, Urine Urobilinogen 0.2, Ur Leukocyte Esterase 1+ A, Urine RBC Occasional, Urine WBC 3-5, Ur Squamous Epith Cells 3-5, Urine Bacteria 3+ 12/16/22 14:33: Troponin I < 0.01 12/16/22 17:15: Troponin I < 0.01 12/16/22 21:42: Hgb 8.9 L D, Hct 25.9 L 12/17/22 06:50: ESR > 140 H 12/17/22 06:50: C-Reactive Protein 98.5 H 12/17/22 06:50: WBC 7.0, RBC 2.51 L D, Hgb 7.6 L D, Hct 22.5 L, MCV 89.4, MCH 30.2, MCHC 33.7, RDW 17.6 H, Plt Count 130 L, MPV 10.6 H, Neut % (Auto) 78.9, Lymph % (Auto) 15.0, [place] % (Auto) 5.7, Eos % (Auto) 0.2, Baso % (Auto) 0.3, Neut # (Auto) 5.5, Lymph # (Auto) 1.1, [place] # (Auto) 0.4, Eos # (Auto) 0.0, Baso # (Auto) 0.0 12/17/22 06:50: Sodium 131 L, Potassium 3.4 L, Chloride 109 H, Carbon Dioxide 17 L, Anion Gap 8.4, BUN 7 D, Creatinine 0.80, Estimated Creat Clear 63, Estimated GFR 76, Est GFR ( Amer) 92 D, Glucose 96 D, Calcium 7.5 L, Magnesium 2.2 12/17/22 06:50: Procalcitonin 7.06 H I & O for Last 24 hours: Intake & Output 12/14/22 12/15/22 12/16/22 12/17/22 23:59 23:59 23:59 23:59 Intake Total 450 / 450 1240 / 1240 Output Total 1650 / 1650 1000 / 1000 Balance -1200 / -1200 240 / 240 Weight 45.416 kg 47.718 kg Microbiology Reports for the Last 24 Hours: Microbiology 12/16/22 13:07 Urine,Clean Catch Urine Culture - Preliminary Gram Negative Rods 12/16/22 19:39 Hand,Right - Right Thumb Gram Stain - Final Constitutional Constitutional: no acute distress,
[2022-12-18] VITALS (9 sets, daily range): BP systolic 93–140; BP diastolic 46–57; PULSE 57–88; RESP 16–20; TEMP 36.7–37.2; O2SAT 95–99; BMI 17.4
--- NOTE | 2022-12-18 05:35 | PC.NURSE ---
PATIENT REQUESTING PAIN MEDS FOR RIGHT HAND PAIN 07/11. DRSG/SPLINT/JOSE ANGEL WRAP C/D/I TO RIGHT HAND AND ELEVATED ON PILLOW. H&H WAS LOW ON 12/17 (7.6 AND 22.5) . H&H WILL BE REPEATED THIS AM. NO REPORTS OF BLACK STOOLS OR VOMITING BLOOD/COFFEE GROUNDS. SPOUSE AT BEDSIDE.
[2022-12-18 07:46] LABS: Basophils % 0.2 % (0.1-2.0); Eosinophils % 0.3 % (0.1-12.0); Hematocrit 23.6 % (37.0-47.0); Lymphocytes % 14.8 % (10-50); Mean Corpuscular HGB Conc 33.8 g/dL (31.8-35.4); Mean Corpuscular Hemoglobin 30.5 pg (27.0-31.2); Mean Corpuscular Volume 90.3 fl (81-99); Mean Platelet Volume 10.6 fl (7.4-10.4); Monocytes # 0.3 K/mm3 (0.1-1.0); Monocytes % 4.2 % (1.7-9.3); Neutrophils # 5.7 K/mm3 (1.8-7.8); Neutrophils % 80.5 % (37.0-80.0); Platelet Count 175 K/mm3 (142-424); Red Blood Count 2.61 M/mm3 (4.20-5.40); Red Cell Distribution Width 17.5 % (11.5-17.5)
[2022-12-18 07:51] LABS: Anion Gap 9.7 mEq/L (5-15); Blood Urea Nitrogen 5 mg/dl (7-17); Calcium 7.6 mg/dl (8.4-10.2); Carbon Dioxide 19 mmol/L (22.0-30.0); Chloride 106 mmol/L (98-107); Creatinine Clearance Estimated 62 mL/min (50-200); Estimated Glomerular Filt Rate 76 ml/min (>60); GFR (African American) 92 ML/MIN (>60); Glucose 117 mg/dl (74-100); Potassium 3.7 mmoL/L (3.5-5.1); Sodium 131 mmol/L (136-145)
[2022-12-18 08:06] LABS: Procalcitonin 4.02 ng/mL (0.0-2.0)
--- NOTE | 2022-12-18 11:01 | EXP.PN ---
Subjective *Date: 12/18/22 *Time: 11:01 Interval history: Date of service December 18, 2022 The patient reports no acute events overnight. She is tolerating her p.o. with effective flatus and elimination. She has identified no further melanotic diarrhea. She reports some right thumb discomfort that is alleviated with opioid therapy. Nursing staff report that she remains afebrile with stable vital signs and saturating appropriately on room air. We have reviewed and discussed and I have personally interpreted her morning labs as follows. A CBC with a normal white blood cell count and stable hemoglobin 8.0. Her electrolytes have improved and her creatinine remains normal at 0.8. Exam Data for Last 24 hours Vital signs and Labs for Last 24 Hours: Temp Pulse Resp BP Pulse Ox 98.9 F 72 16 121/57 L 99 12/18/22 08:00 12/18/22 08:00 12/18/22 08:00 12/18/22 08:00 12/18/22 08:00 Laboratory Results - last 24 hr 12/18/22 07:01: WBC 7.0, RBC 2.61 L, Hgb 8.0 L, Hct 23.6 L, MCV 90.3, MCH 30.5, MCHC 33.8, RDW 17.5, Plt Count 175 D, MPV 10.6 H, Neut % (Auto) 80.5 H, Lymph % (Auto) 14.8, [place] % (Auto) 4.2, Eos % (Auto) 0.3, Baso % (Auto) 0.2, Neut # (Auto) 5.7, Lymph # (Auto) 1.0, [place] # (Auto) 0.3, Eos # (Auto) 0.0, Baso # (Auto) 0.0 12/18/22 07:01: Sodium 131 L, Potassium 3.7, Chloride 106, Carbon Dioxide 19 L, Anion Gap 9.7, BUN 5 L D, Creatinine 0.80, Estimated Creat Clear 62, Estimated GFR 76, Est GFR ( Amer) 92, Glucose 117 H, Calcium 7.6 L, Procalcitonin 4.02 H I & O for Last 24 hours: Intake & Output 12/15/22 12/16/22 12/17/22 12/18/22 23:59 23:59 23:59 23:59 Intake Total 450 / 450 2320 / 3100 1989 Output Total 1650 / 1650 1000 / 1000 400 / 400 Balance -1200 / -1200 1320 / 2100 1590 / 1590 Weight 45.416 kg 47.718 kg 47.31 kg Microbiology Reports for the Last 24 Hours: Microbiology 12/16/22 13:07 Urine,Clean Catch Urine Culture - Final Escherichia coli 12/16/22 19:39 Hand,Right - Right Thumb Gram Stain - Final 12/16/22 19:39 Hand,Right - Right Thumb Wound Culture - Preliminary Constitutional Constitutional: no acute distress, thin and cooperative *Routine HEENT Exam Head: Present normocephalic Eye: Present EOMI and PERRL ENT: Present mucous membranes moist *Routine Neck Exam Neck: Present supple; Absent lymphadenopathy *Routine Respiratory Exam Respiratory: Present CTA bilaterally, normal respiratory effort and symmetric chest movement *Routine Cardiovascular Exam Cardiovascular: Present RRR *Routine Abdominal Exam Abdominal: Present soft and normoactive bowel sounds; Absent tenderness *Routine Extremities Exam Extremities: Absent cyanosis, clubbing or edema Comments: Right thumb in dressing with Eduardo wrap up forearm *Routine Skin Exam Skin: Present warm; Absent rash *Routine Neurological Exam Neurological: Present alert, oriented X3, moving all extremities, vision grossly intact, hearing grossly intact and normal speech; Absent sensory deficit or motor deficit Routine Psychiatric Exam Psychiatric: Present normal affect, normal thought process, cooperative, good insight and good judgment Assessment and Plan *Assessment and plan (1) Acute blood loss anemia: Status: Acute Category: Medical Code(s): D62 - Acute posthemorrhagic anemia (2) Gastritis: Status: Acute Category: Medical Code(s): K29.70 - Gastritis, unspecified, without bleeding (3) Colitis: Status: Acute Category: Medical Code(s): K52.9 - Noninfective gastroenteritis and colitis, unspecified (4) Cellulitis of right thumb: Status: Acute Category: Medical Code(s): L03.011 - Cellulitis of right finger (5) Coronary artery disease: Status: Chronic Category: Medical Code(s): I25.10 - Atherosclerotic heart disease of [place] coronary artery without angina pectoris (6) Renal artery stenosis:
--- NOTE | 2022-12-18 17:40 | PC.NURSE ---
pt has c/o at frequent intervals. one dose of diladud admin to pt. pt education give over the need to taper the use of iv pain meds due to poss dc tomorrow. pt verbalized understanding and has asked for po pain meds, tolerating well. no s/s of bleeding, no n/v or abd pain at this time. pt accidently pulled out iv, new iv placed in lt fa. daughter at bedside, no issues at this time.
[2022-12-19] VITALS: PULSE 80
--- NOTE | 2022-12-19 03:51 | PC.NURSE ---
Pt. should be able to go home today as long as her labs are stable. She asks for pain medications about every four hours for her right hand I AND D she had on Monday per report. No changes noted.
[2022-12-19 04:00] VITALS: BP 115/62; PULSE 60; PULSE 87; RESP 16; TEMP 37.1; O2SAT 100; BMI 17.5
[2022-12-19 06:35] LABS: Anion Gap 8.6 mEq/L (5-15); Blood Urea Nitrogen 10 mg/dl (7-17); Calcium 7.3 mg/dl (8.4-10.2); Carbon Dioxide 19 mmol/L (22.0-30.0); Chloride 107 mmol/L (98-107); Creatinine Clearance Estimated 50 mL/min (50-200); Estimated Glomerular Filt Rate 58 ml/min (>60); GFR (African American) 71 ML/MIN (>60); Glucose 91 mg/dl (74-100); Potassium 3.6 mmoL/L (3.5-5.1); Sodium 131 mmol/L (136-145)
[2022-12-19 06:40] LABS: C-Reactive Protein 48.5 mg/L (0-4)
[2022-12-19 06:52] LABS: Procalcitonin 2.73 ng/mL (0.0-2.0)
[2022-12-19 06:55] LABS: Basophils % 0.2 % (0.1-2.0); Eosinophils % 0.6 % (0.1-12.0); Hematocrit 22.5 % (37.0-47.0); Hemoglobin 7.2 g/dL (12.2-16.2); Lymphocytes % 16.2 % (10-50); Mean Corpuscular HGB Conc 31.9 g/dL (31.8-35.4); Mean Corpuscular Volume 90.8 fl (81-99); Mean Platelet Volume 11.7 fl (7.4-10.4); Monocytes # 0.3 K/mm3 (0.1-1.0); Monocytes % 4.7 % (1.7-9.3); Neutrophils % 78.3 % (37.0-80.0); Platelet Count 226 K/mm3 (142-424); Red Blood Count 2.48 M/mm3 (4.20-5.40); Red Cell Distribution Width 17.6 % (11.5-17.5); White Blood Count 6.4 K/mm3 (4.8-10.8)
[2022-12-19 07:21] LABS: Erythrocyte Sedimentation Rate > 140 mm/hr (0-30)
--- NOTE | 2022-12-19 07:29 | EXP.SURG.PN ---
Subjective Patient reports: feels better Narrative: She reports no additional melena. She does complain of a left-sided sore throat . She states that she has had a sore throat for about a week or two . Exam Data for Last 24 hours Vital signs and Labs for Last 24 Hours: Temp Pulse Resp BP Pulse Ox 98.8 F 87 16 115/62 100 12/19/22 04:00 12/19/22 04:00 12/19/22 04:00 12/19/22 04:00 12/19/22 04:00 Laboratory Results - last 24 hr 12/18/22 07:01: WBC 7.0, RBC 2.61 L, Hgb 8.0 L, Hct 23.6 L, MCV 90.3, MCH 30.5, MCHC 33.8, RDW 17.5, Plt Count 175 D, MPV 10.6 H, Neut % (Auto) 80.5 H, Lymph % (Auto) 14.8, [place] % (Auto) 4.2, Eos % (Auto) 0.3, Baso % (Auto) 0.2, Neut # (Auto) 5.7, Lymph # (Auto) 1.0, [place] # (Auto) 0.3, Eos # (Auto) 0.0, Baso # (Auto) 0.0 12/18/22 07:01: Sodium 131 L, Potassium 3.7, Chloride 106, Carbon Dioxide 19 L, Anion Gap 9.7, BUN 5 L D, Creatinine 0.80, Estimated Creat Clear 62, Estimated GFR 76, Est GFR ( Amer) 92, Glucose 117 H, Calcium 7.6 L, Procalcitonin 4.02 H 12/19/22 06:00: WBC 6.4, RBC 2.48 L, Hgb 7.2 L, Hct 22.5 L, MCV 90.8, MCH 29.0, MCHC 31.9, RDW 17.6 H, Plt Count 226 D, MPV 11.7 H, Neut % (Auto) 78.3, Lymph % (Auto) 16.2, [place] % (Auto) 4.7, Eos % (Auto) 0.6, Baso % (Auto) 0.2, Neut # (Auto) 5.0, Lymph # (Auto) 1.0, [place] # (Auto) 0.3, Eos # (Auto) 0.0, Baso # (Auto) 0.0, ESR > 140 H 12/19/22 06:00: Sodium 131 L, Potassium 3.6, Chloride 107, Carbon Dioxide 19 L, Anion Gap 8.6, BUN 10 D, Creatinine 1.00 D, Estimated Creat Clear 50, Estimated GFR 58 L, Est GFR ( Amer) 71 D, Glucose 91 D, Calcium 7.3 L, C-Reactive Protein 48.5 H D, Procalcitonin 2.73 H I & O for Last 24 hours: Intake & Output 12/16/22 12/17/22 12/18/22 12/19/22 11:59 11:59 11:59 11:59 Intake Total 1690 / 1690 3070 / 3070 2725 / 2725 Output Total 2650 / 2650 400 / 400 900 / 900 Balance -960 / -960 2670 / 2670 1825 / 1825 Weight 90 lb 105 lb 3.2 oz 104 lb 4.811 oz 105 lb 1.6 oz Constitutional Constitutional: no acute distress *Routine Respiratory Exam Respiratory: Absent respiratory distress *Routine Cardiovascular Exam Cardiovascular: Absent tachycardia Progress Note: A&P Assessment and plan (1) Acute blood loss anemia: Status: Acute Assessment and plan: Hemoglobin 7.2 this morning (down from 8.0 yesterday); however, still at a reasonable level given that she has received 2 units packed red blood cells for an initial hemoglobin of 5.1. No definitive evidence of ongoing bleeding. Most likely, she is equilibrating. Repeat hemoglobin this afternoon Possible discharge (from general surgical standpoint) later today if hemoglobin stable Close outpatient follow-up Continue proton pump inhibition (2) Gastritis: Status: Acute (3) Colitis: Status: Acute (4) Cellulitis of right thumb: Status: Acute (5) Coronary artery disease: Status: Chronic (6) Renal artery stenosis: Status: Acute (7) COPD (chronic obstructive pulmonary disease): Status: Chronic (8) Tobacco abuse: Status: Chronic
[2022-12-19 08:00] VITALS: BP 134/78; PULSE 70; RESP 16; TEMP 37.5; O2SAT 100
--- NOTE | 2022-12-19 09:11 | P.PN_ITS ---
Subjective *Date: 12/19/22 *Time: 09:11 Medical Exam Vital signs and Labs for Last 24 Hours: Vital Signs Temp Pulse Pulse Resp BP Pulse Ox 12/19/22 08:00 99.5 F 70 16 134/78 100 12/19/22 04:00 60 12/19/22 04:00 98.8 F 87 16 115/62 100 12/19/22 00:00 80 12/18/22 23:57 98.7 F 71 18 102/54 L 97 12/18/22 20:00 80 12/18/22 20:00 98 12/18/22 20:00 98.7 F 67 20 140/47 L 99 12/18/22 16:00 83 12/18/22 15:43 98.0 F 77 16 98/51 L 99 12/18/22 12:00 72 12/18/22 12:00 98.8 F 78 16 93/54 L 98 Intake and Output 12/18/22 12/19/22 12/19/22 23:59 07:59 15:59 Intake Total 1665 / 4015 700 / 820 120 / 820 Output Total 750 / 1150 150 / 150 0 / 150 Balance 915 / 2865 550 / 670 120 / 670 Intake: Intake, Oral Amount 600 / 1560 120 / 120 Intake, Total IV Amount 1065 / 2455 700 / 700 Ampicillin/Sulbactam 3 gm In 0. 100 / 100 9 % Sodium Chloride 100 ml @ 200 mls/hr IV Q6H [facility] Rx#: [id number] Sodium Chloride 0.45 % 1,000 ml 1065 / 2255 600 / 600 @ 75 mls/hr IV .[id number] [facility] Rx #:[id number] Output: Output, Urine Amount 750 / 1150 150 / 150 0 / 150 Other: Number of Unmeasured Voids 2 1 Weight 47.673 kg Patient Weight 12/19/22 23:59 Weight 47.673 kg Laboratory Results - last 24 hr 12/19/22 06:00: WBC 6.4, RBC 2.48 L, Hgb 7.2 L, Hct 22.5 L, MCV 90.8, MCH 29.0, MCHC 31.9, RDW 17.6 H, Plt Count 226 D, MPV 11.7 H, Neut % (Auto) 78.3, Lymph % (Auto) 16.2, [place] % (Auto) 4.7, Eos % (Auto) 0.6, Baso % (Auto) 0.2, Neut # (Auto) 5.0, Lymph # (Auto) 1.0, [place] # (Auto) 0.3, Eos # (Auto) 0.0, Baso # (Auto) 0.0, ESR > 140 H 12/19/22 06:00: Sodium 131 L, Potassium 3.6, Chloride 107, Carbon Dioxide 19 L, Anion Gap 8.6, BUN 10 D, Creatinine 1.00 D, Estimated Creat Clear 50, Estimated GFR 58 L, Est GFR ( Amer) 71 D, Glucose 91 D, Calcium 7.3 L, C-Reactive Protein 48.5 H D, Procalcitonin 2.73 H I & O for Labs for Last 24 Hours: Intake & Output 12/16/22 12/17/22 12/18/22 12/19/22 23:59 23:59 23:59 23:59 Intake Total 450 / 450 2320 / 3100 4015 / 4015 820 / 820 Output Total 1650 / 1650 1000 / 1000 1150 / 1150 150 / 150 Balance -1200 / -1200 1320 / 2100 2865 / 2865 670 / 670 Weight 45.416 kg 47.718 kg 47.31 kg 47.673 kg Microbiology Reports for the Last 24 Hours: Microbiology 12/16/22 19:39 Hand,Right - Right Thumb Gram Stain - Final 12/16/22 19:39 Hand,Right - Right Thumb Wound Culture - Preliminary The patient's infection will respond to the chosen ABx?: Yes (WOUND CULTURE PENDING, URINE CULTURE = E.COLI, AMP SENSITIVE) Is the patient receiving the right drug, dose, and route?: Yes Could a more targeted ABx be ordered?: No
[2022-12-19 11:05] LABS: Hematocrit 21.9 % (37.0-47.0); Hemoglobin 7.2 g/dL (12.2-16.2)
[2022-12-19 11:33] VITALS: BP 106/50; PULSE 66; RESP 18; TEMP 36.7; O2SAT 99
[2022-12-19 12:00] VITALS: PULSE 60
--- NOTE | 2022-12-19 12:55 | EXP.DC.SUM ---
General Admission date:: 12/16/22 Discharge date: 12/19/22 HPI HPI HPI: This is a 52-year-old female who presents to [facility] emergency department after experiencing nausea vomiting and melanotic diarrhea for 1 week. She reports a crescendo of her symptomatology and started feeling weak so she requested her and daughter to bring her to the ED. 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 She reports that she currently takes Plavix and ibuprofen. She denies NSAID overuse. She reports her usual state of health when she started experiencing waves of nausea which proceeded to associated emesis and watery diarrhea that transition to melanotic diarrhea. She denied hematemesis. She reported initially experiencing tenesmus and epigastric pain. Her initial pain was rated greater than a 7 on a 1-10 pain scale but it has acquiesced. She identified no associated fever but does endorse chills. She reports being able to keep fluids down but describes decreased food consumption. She has identified no rashes, sick contacts, travel abroad or identified contaminated food. She reports no associated jaundice. She reports no previous history of EGD or colonoscopies. In the ED her presenting hemoglobin is 5.1 with normal platelet count, white blood cell count and normal INR. Her MCV is 92. Her electrolytes identify a 9 anion gap metabolic acidosis with a normal creatinine of 1.0. Hospital Course Hospital Course Hospital Course: The patient was admitted to the medical unit with telemetry monitoring and ongoing blood transfusion for her presenting hemoglobin of 5.1. She received 2 units during her inpatient stay. General surgery was consulted and an EGD was recommended. She complained that her right thumb was erythematous from a procedure performed at [facility] back in September. She reported no follow-up after her surgical intervention. Orthopedics was consulted and imaging was recommended. She underwent OR intervention on December 16 with wound cultures identifying no growth to date. She was placed on IV Unasyn for her colitis and right MTP cellulitis. On admission urine cultures were acquired that have grown out greater than 100,000 E. coli that is pansensitive. CT imaging in the ED of her abdomen and pelvis identified concerns with colitis, gastritis and heterogeneous right kidney of uncertain etiology possible for small renal infarcts and previous right renal stent deployment (June 2022). Her renal function including creatinine was monitored and remained normal throughout her stay. Her blood pressure remained controlled. On December 17 she underwent an EGD that identified a lobulated 2.5 cm cratered ulceration in the prepyloric region without visible clot or sign of recent hemorrhage, small shallow cratered ulceration in the antrum, complex shallow linear 2 x 3 cm ulceration in the mid/distal gastric body with friable central eschar, multiple smaller shallow linear ulcerations throughout the mid/distal gastric body biopsies were required for pathology. Post procedurally the patient did well and identified no hematemesis, abdominal pain or melanotic stool. The patient's hemoglobin was trended and identified stability. She identified improvement and inquired about discharge home. Her daughter accompanied her on day of discharge. I was accompanied by her nurse Neeru. We discussed the importance of compliance with complete tobacco cessation education to improve her health. We discussed her discharge medications including Augmentin twice daily for 7 to 10 days, Protonix twice daily for 4 to 6 weeks, iron therapy, short course of opioid therapy and discontinuation of ibuprofen
--- NOTE | 2022-12-19 13:08 | HMH.PHAINT1 ---
Pharmacy Intervention Comments: DISCHARGE MEDICATION COUNSELING PROVIDED. DISCUSSED AUGMENTIN (ANTIBIOTIC, TAKE TWICE DAILY, TAKE WITH FOOD, N/V/D POSSIBLE, IF DIARRHEA OCCURS MAY CONSIDER YOGURT WITH ACTIVE CULTURES OR PROBIOTICS TO HELP CUT BACK ON DIARRHEA) AND PANTOPRAZOLE (FOR REFLUX/STOMACH BLEED, TAKE DAILY, BEST AT NIGHT BUT CAN BE TAKEN ANY TIME OF THE DAY, HEADACHE POSSIBLE) AND STOP PLAVIX, IBUPROFEN. PATIENT'S DAUGHTER VERBALIZED NO QUESTIONS AT THIS TIME.
--- NOTE | 2022-12-20 11:23 | CARE MANAGER ---
Spoke with patient related to hospital discharge. There were 2 meds she had issues with getting. One was iron and she was able to afford that, but the other was Protonix and the pharmacy is in touch with doctor's office regarding this. She denies any other questions or concerns at this time. ESPERANZA Denise
== END 2022-12-19 14:22 | disposition home or self-care (01) | DRG 982 ==
LOC: ER 13:12 → 2ND 14:11
PROVIDERS: Orthopaedic Surgery; Surgery; Admitting Provider Family Medicine; Emergency Provider Emergency Medicine; PCP Emergency Medicine; Visit Provider Family Medicine
PROC: 0RPW04Z Removal of Internal Fixation Device from Right Finger Phalangeal Joint, Open Approach (ICD-10-PCS; principal; 2022-12-16 19:00)
PROC: 0DJ08ZZ Inspection of Upper Intestinal Tract, Via Natural or Artificial Opening Endoscopic (ICD-10-PCS; CPT 43235; principal; 2022-12-17 08:00)
DX: K25.4 Chronic or unspecified gastric ulcer with hemorrhage (principal); D62 Acute posthemorrhagic anemia; J84.9 Interstitial pulmonary disease, unspecified; L02.511 Cutaneous abscess of right hand; T81.41XA Infection following a procedure, superficial incisional surgical site, initial encounter; N39.0 Urinary tract infection, site not specified; K52.9 Noninfective gastroenteritis and colitis, unspecified; I25.10 Atherosclerotic heart disease of native coronary artery without angina pectoris; J43.9 Emphysema, unspecified; I73.9 Peripheral vascular disease, unspecified; F41.9 Anxiety disorder, unspecified; F32.A Depression, unspecified; L03.011 Cellulitis of right finger; I70.1 Atherosclerosis of renal artery; Y83.1 Surgical operation with implant of artificial internal device as the cause of abnormal reaction of the patient, or of later complication, without mention of misadventure at the time of the procedure; Z91.199 Patient's noncompliance with other medical treatment and regimen due to unspecified reason; F17.210 Nicotine dependence, cigarettes, uncomplicated
CPT/HCPCS: 26320; 43239; 36415; 36430; 71045; 73130; 74177; 80048; 80076; 81001; 82272; 83690; 83735; 84145; 84484; 85014; 85018; 85025; 85610; 85651; 85730; 86140; 86850; 87070; 87075; 87077; 87086; 87088; 87186; 87205; 88300; 88305; 93005; 99285; C9803; G0328; J2405; J2704; J3370; P9016; Q9967; U0003; U0005

== ENCOUNTER → 2022-12-26 16:53 | Outpatient (CLI) | payer OTHER, SELFPAY ==
[2022-12-26 18:15] LABS: Basophils # 0.1 K/mm3 (0-0.2); Basophils % 1.3 % (0.1-2.0); Eosinophils % 0.6 % (0.1-12.0); Hematocrit 28.2 % (37.0-47.0); Hemoglobin 8.8 g/dL (12.2-16.2); Lymphocytes # 1.2 K/mm3 (0.7-4.5); Lymphocytes % 27.3 % (10-50); Mean Corpuscular HGB Conc 31.1 g/dL (31.8-35.4); Mean Corpuscular Hemoglobin 28.9 pg (27.0-31.2); Mean Corpuscular Volume 92.7 fl (81-99); Mean Platelet Volume 8.7 fl (7.4-10.4); Monocytes # 0.4 K/mm3 (0.1-1.0); Monocytes % 7.8 % (1.7-9.3); Neutrophils # 2.9 K/mm3 (1.8-7.8); Platelet Count 580 K/mm3 (142-424); Red Blood Count 3.04 M/mm3 (4.20-5.40); Red Cell Distribution Width 17.2 % (11.5-17.5); White Blood Count 4.6 K/mm3 (4.8-10.8)
== END ==
PROVIDERS: PCP Emergency Medicine; Visit Provider Emergency Medicine
DX: D64.9 Anemia, unspecified (principal)
CPT/HCPCS: 36415; 85025

== ENCOUNTER 2022-12-29 10:25 | Outpatient (RCR) | payer OTHER, SELFPAY | END 2022-12-29 11:30 | disposition home or self-care (01) | LOC: OT 10:25 | PROVIDERS: Visit Provider Orthopaedic Surgery | DX: S63.601D Unspecified sprain of right thumb, subsequent encounter (principal) | CPT/HCPCS: 97763 ==

== ENCOUNTER → 2022-12-30 19:04 | Outpatient (CLI) | payer OTHER, SELFPAY ==
[2022-12-30 20:32] LABS: Amphetamine/Metha Screen,Urine Negative ng/ml (<1000)
[2022-12-30 20:33] LABS: Barbiturates Screen,Urine Negative ng/ml (<200); Benzodiazepines Screen,Urine Negative ng/ml (<200)
[2022-12-30 20:34] LABS: Cannabinoid Screen,Urine Negative ng/ml (<50)
[2022-12-30 20:35] LABS: Cocaine Screen,Urine Negative ng/ml (<300); Methadone Screen,Urine Negative ng/ml (<300)
[2022-12-30 20:36] LABS: Opiate Screen,Urine Positive ng/ml (<300); Phencyclidine Screen,Urine Negative ng/ml (<25)
== END ==
PROVIDERS: PCP Emergency Medicine; Visit Provider Emergency Medicine
DX: N39.0 Urinary tract infection, site not specified (principal); Z79.899 Other long term (current) drug therapy
CPT/HCPCS: 80305; 87086

== ENCOUNTER → 2023-01-11 14:36 | Outpatient (CLI) | payer OTHER, SELFPAY ==
[2023-01-11 14:58] LABS: Hematocrit 28.5 % (37.0-47.0); Hemoglobin 8.9 g/dL (12.2-16.2)
== END ==
PROVIDERS: PCP Emergency Medicine; Visit Provider Surgery
DX: K92.2 Gastrointestinal hemorrhage, unspecified (principal)
CPT/HCPCS: 36415; 85014; 85018

== ENCOUNTER → 2023-01-20 19:07 | Outpatient (CLI) | payer OTHER, SELFPAY | PROVIDERS: PCP Emergency Medicine; Visit Provider Emergency Medicine | DX: N39.0 Urinary tract infection, site not specified (principal) | CPT/HCPCS: 87086 ==

== ENCOUNTER 2023-02-10 11:07 | Emergency (ER) | payer OTHER, SELFPAY ==
[2023-02-10 11:08] VITALS: BP 146/96; PULSE 83; RESP 16; TEMP 36.5; O2SAT 99; BMI 16.8
--- NOTE | 2023-02-10 11:12 | CT_ITS ---
FINAL REPORT TECHNIQUE: IV contrast enhanced exam. This study was performed with techniques to keep radiation doses as low as reasonably achievable (ALARA). Individualized dose reduction techniques using automated exposure control or adjustment of mA and/or kV according to the patient's size were employed. Improved CLINICAL HISTORY: GI bleed COMPARISON: 12/16/2022 FINDINGS: Abdomen: Lung bases are clear. The gallbladder is mildly distended. Liver has an unremarkable CT appearance. The spleen, pancreas and adrenal glands are unremarkable. There are multiple areas of right renal scarring, likely sequela of prior pyelonephritis. There is resolution of gastric wall thickening since the prior. The bowel is unremarkable. Pelvis: The appendix is normal. There is minimal wall thickening of the descending and sigmoid colon although improved since prior. The patient is status post hysterectomy. Pelvic bowel loops are unremarkable. No fluid collection or adenopathy is seen. IMPRESSION: Mild distal colon wall thickening, improved since previous. Resolution of gastric wall thickening since the prior. No bowel obstruction. Interval development of a right renal scarring as sequela of prior infection. Reviewed, Interpreted and Dictated by Ken Louis MD Transcribed by Elke Francisco Authenticated and [facility]
[2023-02-10 11:30] VITALS: BP 149/79; PULSE 69; RESP 16; O2SAT 100
--- NOTE | 2023-02-10 11:37 | PC.NURSE ---
charge nurse and lab at bs when rounding on pt
[2023-02-10 11:49] LABS: Basophils % 0.3 % (0.1-2.0); Eosinophils # 0.1 K/mm3 (0.0-0.4); Eosinophils % 1.4 % (0.1-12.0); Hematocrit 31.9 % (37.0-47.0); Hemoglobin 10.2 g/dL (12.2-16.2); Lymphocytes # 1.1 K/mm3 (0.7-4.5); Lymphocytes % 19.4 % (10-50); Mean Corpuscular HGB Conc 31.9 g/dL (31.8-35.4); Mean Corpuscular Hemoglobin 28.2 pg (27.0-31.2); Mean Corpuscular Volume 88.4 fl (81-99); Mean Platelet Volume 8.3 fl (7.4-10.4); Monocytes # 0.3 K/mm3 (0.1-1.0); Monocytes % 5.4 % (1.7-9.3); Neutrophils # 4.2 K/mm3 (1.8-7.8); Neutrophils % 73.4 % (37.0-80.0); Platelet Count 404 K/mm3 (142-424); White Blood Count 5.7 K/mm3 (4.8-10.8)
[2023-02-10 12:00] VITALS: BP 142/86; PULSE 76; RESP 16; O2SAT 100
[2023-02-10 12:03] LABS: Alanine Aminotransferase 15 U/L (12-78); Albumin/Globulin Ratio 1.3 (1.1-1.8); Alkaline Phosphatase 91 U/L (38-126); Anion Gap 14.9 mEq/L (5-15); Aspartate Amino Transferase 22 U/L (14-36); Bilirubin,Total 0.2 mg/dl (0.2-1.3); Blood Urea Nitrogen 13 mg/dl (7-17); Calcium 8.8 mg/dl (8.4-10.2); Carbon Dioxide 23 mmol/L (22.0-30.0); Chloride 102 mmol/L (98-107); Creatinine Clearance Estimated 48 mL/min (50-200); Estimated Glomerular Filt Rate 58 ml/min (>60); GFR (African American) 70 ML/MIN (>60); Globulin 3.2 g/dL (1.3-3.2); Glucose 85 mg/dl (74-100); Lipase 115 U/L (23-300); Potassium 3.9 mmoL/L (3.5-5.1); Sodium 136 mmol/L (136-145); Total Protein,Serum 7.2 g/dl (6.3-8.2)
[2023-02-10 12:07] LABS: INR 0.93 (0.9-1.1); Prothrombin Time 10.1 seconds (10.1-12.5)
--- NOTE | 2023-02-10 12:36 | PC.NURSE ---
pt arrived back from rad
[2023-02-10 13:00] VITALS: BP 124/72; PULSE 101; O2SAT 100
[2023-02-10 13:28] LABS: Lactic Acid 1.6 mmol/L (0.7-2.1)
[2023-02-10 13:30] VITALS: BP 119/72; PULSE 95; RESP 16; O2SAT 98
[2023-02-10 14:05] LABS: Microscopic, Urine URINE MICROSCOPIC (MICROSCOPIC)
[2023-02-10 14:07] LABS: Appearance,Urine CLEAR (Clear); Bilirubin,Urine Negative (Negative); Blood, Urine Negative (Negative); Color,Urine YELLOW (Yellow); Glucose,Urine (UA) Negative (Negative); Ketones,Urine Negative (Negative); Leukocyte Esterase,Urine Negative (Negative); Nitrate,Urine Negative (Negative); Protein,Urine Negative (Negative); Urobilinogen,Urine 0.2 EU/dl (0.2)
[2023-02-10 14:20] LABS: Bacteria,Urine Trace /lpf; Squamous Epithelial Cell,Urine Occasional #/hpf (0-5)
[2023-02-10 14:30] VITALS: BP 119/72; PULSE 100; RESP 16; TEMP 36.9
--- NOTE | 2023-02-10 16:00 | HMH.EDGENADL ---
Discharge Plan Disposition Patient Disposition: Home, Self-Care Condition: Fair Prescriptions Prescriptions: New azithromycin 500 mg tablet 500 mg PO DAILY 7 Days Qty: 7 0RF No Action estradiol 2 mg tablet 2 mg PO DAILY sucralfate [Carafate] 100 mg/mL suspension 10 ml PO QID Qty: 1000 2RF Rx Instructions: swish in mouth and swallow; use after food/drink ferrous sulfate [FeroSul] 325 mg (65 mg iron) tablet 325 mg PO DAILY Label Comments: TAKE 1 TABLET BY MOUTH TWICE DAILY buspirone 10 mg tablet 10 mg PO TID Qty: 90 2RF duloxetine 60 mg capsule,delayed release(DR/EC) 60 mg PO DAILY Qty: 30 2RF oxycodone 5 mg tablet 5 mg PO TID PRN (Reason: pain) Qty: 90 0RF nitroglycerin 0.4 mg tablet, sublingual 0.4 mg sublingual Q5M PRN (Reason: chest pain) Qty: 25 0RF Rx Instructions: do not exceed 3 doses per episode Anoro Ellipta 62.5-25 mcg/actuation blister with device 1 inh inhalation DAILY 90 Days Qty: 180 3RF albuterol sulfate 90 mcg/actuation HFA aerosol inhaler 2 inh inhalation QID PRN (Reason: shortness of breath or wheezing) 90 Days Qty: 8.5 2RF pantoprazole [Protonix] 40 mg tablet,delayed release (DR/EC) 40 mg PO BID Qty: 60 0RF levofloxacin 500 mg tablet 500 mg PO DAILY Qty: 7 0RF furosemide [Lasix] 40 mg tablet 40 mg PO DAILY amlodipine 5 mg tablet 5 mg PO DAILY magnesium oxide 400 mg (241.3 mg magnesium) tablet 400 mg PO DAILY losartan 25 mg tablet 25 mg PO DAILY metoprolol tartrate 25 mg tablet 25 mg PO BID ranolazine 500 mg tablet extended release 12 hr 500 mg PO BID atorvastatin 40 mg tablet 40 mg PO HS Label Comments: TAKE 1 TABLET BY MOUTH AT BEDTIME Niferex (Sumalate-Quatrefolic) 150 mg iron- 60 mg-1 mg tablet 1 tab PO BID Qty: 60 0RF Referrals Follow up/Referrals: Ahsan Nowak MD [Primary Care Provider] - See instructions Lars Renner MD [Staff Physician] - See instructions (recurrent GI bleed) Clinical Impressions Clinical Impression: Infectious colitis, GI bleed Instructions Patient Instructions: DI for Peptic Ulcer Discharge ED Provider: Robert Bates General Adult HPI General Chief complaint: Abdominal Pain Stated complaint: stomach pain Time Seen by Provider: 02/10/23 11:15 Mode of Arrival: Ambulatory Source of Information: Patient Limitations: No Limitations Description of Symptoms (Recalled from ER Triage Doc. by RN): Patient presents to ED via POV due to epigastric pain as well as dark red and bright red blood in stool since Monday + weakness, nausea. Intermittent fever (Mtemp 101 [id number]). Recent hx of bleeding ulcer tx with protonix and Carafate and followed by . History of Present Illness HPI narrative: Patient is a 53-year-old female with past medical history of GI bleed, CAD, renal stent, PAD, COPD, hypertension, hyperlipidemia who presents with concern for abdominal pain and GI bleed. She says that over the last week she has had progressively worsening epigastric pain. She says that it feels like her previous episodes of gastritis and flareup in her ulcers. She said that she started having some dark red stool during this time as well. She has been taking her Protonix and Carafate as prescribed by Dr. Renner. She says that she wanted to come in for evaluation because last time she said her hemoglobin was around 5 and she needed blood transfusions. She says she is also felt weak and nauseous. She said she has had diarrhea for the last 3 weeks as well. Related Data Home Medications Medication Instructions Recorded Confirmed estradiol 2 mg tablet 2 mg PO DAILY hormone replacement 02/22/22 02/10/23 amlodipine 5 mg tablet 5 mg PO DAILY High blood pressure 12/16/22 02/10/23 atorvastatin 40 mg tablet 40 mg PO HS Cholesterol 12/16/22 02/10/23 furosemide 40 mg tablet (Lasix) 40 mg PO DAILY Fluid 12/16/22 02/10/23 los
== END 2023-02-10 14:30 | disposition home or self-care (01) ==
PROVIDERS: Emergency Provider Student in an Organized Health Care Education/Training Program; PCP Emergency Medicine
DX: A09 Infectious gastroenteritis and colitis, unspecified (principal); K92.2 Gastrointestinal hemorrhage, unspecified; F17.210 Nicotine dependence, cigarettes, uncomplicated; I73.9 Peripheral vascular disease, unspecified
CPT/HCPCS: 74177; 80053; 81001; 83605; 83690; 85025; 85610; 86850; 96374; 96375; 99285; Q9967

== ENCOUNTER → 2023-02-10 13:20 | Outpatient (CLI) | payer OTHER, SELFPAY | PROVIDERS: PCP Emergency Medicine; Visit Provider Emergency Medicine | DX: N39.0 Urinary tract infection, site not specified (principal) | CPT/HCPCS: 87086 ==

== ENCOUNTER 2023-02-14 09:02 | Day surgery (SDC) | payer OTHER, SELFPAY ==
[2023-02-13 13:54] VITALS: BMI 16.8
[2023-02-14 09:19] VITALS: BP 135/79; PULSE 100; RESP 18; TEMP 36.2; O2SAT 99
--- NOTE | 2023-02-14 09:30 | P.PCN_ITS ---
Procedure: Date: 02/14/23 Patient Date of :: 1970 Procedure Performed:: Esophagogastroduodenoscopy with biopsy Indications:: Peptic ulcer disease Melena Note: The patient is status post recent esophagogastroduodenoscopy during short- stay hospitalization for melena. Multiple complex gastric ulcerations were noted. She was placed on proton pump inhibition and Carafate. She had remained stable with no new complaints prior to an evaluation in the Emergency Department on February 10. She was seen in the ED secondary to melena and intermittent bright red blood per rectum. Laboratory evaluation during this visit revealed her hemoglobin to be up to 10.2. She was afebrile with stable and normal vital signs...and deemed appropriate for discharge with plans for short-term repeat EGD. Performing Provider:: Lars Renner MD Referring Provider:: ED Sedation:: Monitored anesthesia care Procedure:: After informed consent was obtained the patient was taken to the endoscopy suite. Sedation ensued after the patient was transferred to the left lateral decubitus position. Pulse, blood pressure, and oxygen saturation were monitored throughout the procedure. The endoscope was advanced beyond the duodenal bulb. Retroflexion within the gastric lumen was accomplished. The gastroscope was carefully removed and the patient was transferred to recovery in stable condition. Please see findings and specimens below for detail. Findings:: Dramatic improvement with regard to recent diagnosis of multiple complex gastric ulcers No sign of active hemorrhage No blood clot/old blood visible within gastric lumen or duodenum Note: Prior lobulated 2.5 cm cratered ulceration in prepyloric region (approximately 90% healed) Resolved small shallow crater ulceration in antrum Prior complex shallow linear 2 x 3 cm ulceration in mid/distal gastric body with friable central eschar (approximately 90% healed) Resolved multiple smaller shallow linear ulcerations throughout mid/distal gastric body Specimens:: Antral biopsy Recommendations:: Follow-up pathology Continue proton pump inhibition Continue Carafate Complications:: No immediate Estimated blood obtained (mL): 1
[2023-02-14 09:45] LABS: Basophils % 0.1 % (0.1-2.0); Eosinophils # 0.1 K/mm3 (0.0-0.4); Eosinophils % 2.4 % (0.1-12.0); Hematocrit 29.8 % (37.0-47.0); Hemoglobin 9.6 g/dL (12.2-16.2); Lymphocytes # 1.5 K/mm3 (0.7-4.5); Mean Corpuscular HGB Conc 32.3 g/dL (31.8-35.4); Mean Corpuscular Hemoglobin 28.3 pg (27.0-31.2); Mean Corpuscular Volume 87.6 fl (81-99); Mean Platelet Volume 7.9 fl (7.4-10.4); Monocytes # 0.3 K/mm3 (0.1-1.0); Monocytes % 5.3 % (1.7-9.3); Neutrophils # 4.1 K/mm3 (1.8-7.8); Neutrophils % 67.3 % (37.0-80.0); Platelet Count 325 K/mm3 (142-424); White Blood Count 6.1 K/mm3 (4.8-10.8)
[2023-02-14 09:49] VITALS: O2SAT 99
[2023-02-14 10:10] VITALS: BP 119/78; PULSE 86; RESP 17; TEMP 36.3; O2SAT 100
[2023-02-14 10:20] VITALS: BP 137/84; PULSE 84; RESP 16; O2SAT 97
--- NOTE | 2023-02-14 10:29 | P.PN_ITS ---
[facility] Disclaimer: The information contained in this section may have been updated after the patient was seen, as this information can be updated by other users. Medical History Allergies Cervical cancer COPD (chronic obstructive pulmonary disease) Coronary artery disease Depression with anxiety Edema History of anemia History of COVID-19 Hyperlipidemia Hypertension ILD (interstitial lung disease) Kidney stone Ovarian cancer PAD (peripheral artery disease) Renal artery stenosis Sinus headache Tobacco abuse Ulcerative colitis Urinary tract infection Surgical History H/O total hysterectomy History of colonoscopy History of esophagogastroduodenoscopy (EGD) History of hand surgery History of knee surgery History of left heart catheterization History of renal stent Family History Mother Surgical complication Stroke COPD (chronic obstructive pulmonary disease) Father Pneumonia COPD (chronic obstructive pulmonary disease) Other Family history of hyperlipidemia Family history of hypertension Social History Smoking Status: Current every day smoker tobacco type: e-cigarettes years smoked: 20 smoking status stop date: 12/16/22 alcohol intake: never substance use type: denies use current occupational status: employed Travel in the last 8 weeks: None household members: spouse housing: house caffeine: Yes [facility] Anesthesia Checklist Patient Identification Patient Identification: Arm Band and Family Structural Data Admitted From: Home Planned Operative Procedure/s: EGD Consent for Planned Operative Procedure(s) Verified: Yes Verified Documents: Surgical Consent and History and Physical NPO Status Verified Time NPO: 00:00 Additional verifications Patient : No Anesthesia Reactions: No Hx Blood Transfusions: No Blood Transfusion Reaction: No Cephalosporin Allergy: No Previous Colonoscopy: Yes Airway Assessment C-Spine Mobility Assessed: Yes TMJ Mobility Assessed: Yes Dentition: Good Dentition Neurological Assessment Level of Consciousness: Awake, Alert, Appropriate and Follows Commands Hx Seizures: No Numbness or tingling in extremities: No Anesthesia Plan Anesthesia Risk discussed: Yes ASA Class: II Anesthesia Type: MAC Preoperative Comments Pre-Operative Comments: Htn. Renal stent. ULCERS
[2023-02-14 10:30] VITALS: BP 136/83; PULSE 83; RESP 17; O2SAT 100
[2023-02-14 10:40] VITALS: BP 126/85; PULSE 80; RESP 17; TEMP 36.6; O2SAT 100
== END 2023-02-14 10:45 | disposition home or self-care (01) ==
PROVIDERS: PCP Emergency Medicine; Visit Provider Surgery
PROC: 0DJ08ZZ Inspection of Upper Intestinal Tract, Via Natural or Artificial Opening Endoscopic (ICD-10-PCS; CPT 43235; principal; 2023-02-14 09:30)
DX: K27.9 Peptic ulcer, site unspecified, unspecified as acute or chronic, without hemorrhage or perforation (principal); F17.290 Nicotine dependence, other tobacco product, uncomplicated; Z79.899 Other long term (current) drug therapy
CPT/HCPCS: 43239; 85025; J2405

== ENCOUNTER → 2023-03-22 13:10 | Outpatient (CLI) | payer OTHER, SELFPAY ==
[2023-03-22 20:48] LABS: Amphetamine/Metha Screen,Urine Negative ng/ml (<1000); Barbiturates Screen,Urine Negative ng/ml (<200)
[2023-03-22 20:49] LABS: Benzodiazepines Screen,Urine Negative ng/ml (<200); Cannabinoid Screen,Urine Positive ng/ml (<50)
[2023-03-22 20:50] LABS: Cocaine Screen,Urine Negative ng/ml (<300)
[2023-03-22 20:51] LABS: Methadone Screen,Urine Negative ng/ml (<300); Opiate Screen,Urine Positive ng/ml (<300)
[2023-03-22 20:52] LABS: Phencyclidine Screen,Urine Negative ng/ml (<25)
== END ==
PROVIDERS: PCP Emergency Medicine; Visit Provider Emergency Medicine
DX: Z79.899 Other long term (current) drug therapy (principal)
CPT/HCPCS: 80305

== ENCOUNTER 2023-04-18 10:46 | Day surgery (SDC) | payer OTHER, SELFPAY ==
[2023-04-17 11:23] VITALS: BMI 17.1
[2023-04-18] VITALS (8 sets, daily range): BP systolic 101–118; BP diastolic 69–85; PULSE 61–74; RESP 15–18; TEMP 36.1–37; O2SAT 98–100
--- NOTE | 2023-04-18 11:54 | P.PNANES_ITS ---
[facility] Disclaimer: The information contained in this section may have been updated after the patient was seen, as this information can be updated by other users. Medical History Allergies Cervical cancer COPD (chronic obstructive pulmonary disease) Coronary artery disease Depression with anxiety Edema GI bleed History of anemia History of COVID-19 Hyperlipidemia Hypertension ILD (interstitial lung disease) Kidney stone Ovarian cancer PAD (peripheral artery disease) Renal artery stenosis Sinus headache Tobacco abuse Ulcerative colitis Urinary tract infection Surgical History H/O total hysterectomy History of colonoscopy History of esophagogastroduodenoscopy (EGD) History of hand surgery History of knee surgery History of left heart catheterization History of renal stent Family History Mother Surgical complication COPD (chronic obstructive pulmonary disease) Stroke Father COPD (chronic obstructive pulmonary disease) Pneumonia Other Aneurysm Family history of hyperlipidemia Family history of hypertension Social History Smoking Status: Current every day smoker tobacco type: e-cigarettes years smoked: 20 smoking status stop date: 12/16/22 alcohol intake: never substance use type: denies use current occupational status: employed Travel in the last 8 weeks: None household members: spouse housing: house caffeine: Yes [facility] Anesthesia Checklist Patient Identification Patient Identification: Verbal (Name & ) Structural Data Admitted From: Home Planned Operative Procedure/s: egd Consent for Planned Operative Procedure(s) Verified: Yes Additional verifications Anesthesia Reactions: No Hx Blood Transfusions: No Blood Transfusion Reaction: No Airway Assessment C-Spine Mobility Assessed: Yes TMJ Mobility Assessed: Yes Dentition: Good Dentition Neurological Assessment Level of Consciousness: Awake, Alert and Appropriate Anesthesia Plan Anesthesia Risk discussed: Yes Anesthesia Plan: Verified ASA Class: III Anesthesia Type: MAC
--- NOTE | 2023-04-18 12:00 | P.PCN_ITS ---
Procedure: Date: 04/18/23 Patient Date of :: 1970 Procedure Performed:: Esophagogastroduodenoscopy with biopsy Indications:: Peptic ulcer disease with most recent EGD dated February 14 showing significant impr ovement with regard to multiple complex gastric ulcerations. Performing Provider:: Lars Renner MD Referring Provider:: . Sedation:: Monitored anesthesia care Procedure:: After informed consent was obtained the patient was taken to the endoscopy suite. Sedation ensued after the patient was transferred to the left lateral decubitus position. Pulse, blood pressure, and oxygen saturation were monitored throughout the procedure. The endoscope was advanced beyond the duodenal bulb. Retroflexion within the gastric lumen was accomplished. The gastroscope was carefully removed and the patient was transferred to recovery in stable condition. Please see findings and specimens below for detail. Findings:: Prepyloric ulceration essentially healed. No additional ulcerations noted. Specimens:: Site of prepyloric ulceration Recommendations:: Follow-up pathology Continue proton pump inhibition Complications:: No immediate Estimated blood obtained (mL): 1 Colonoscopy Component Colonoscopy Component Was a colonoscopy performed during today's procedure?: No
[2023-04-18 13:23] LABS: Hematocrit 28.5 % (37.0-47.0); Hemoglobin 8.7 g/dL (12.2-16.2)
== END 2023-04-18 13:55 | disposition home or self-care (01) ==
PROVIDERS: PCP Emergency Medicine; Visit Provider Surgery
PROC: 0DJ08ZZ Inspection of Upper Intestinal Tract, Via Natural or Artificial Opening Endoscopic (ICD-10-PCS; CPT 43235; principal; 2023-04-18 11:30)
DX: K27.9 Peptic ulcer, site unspecified, unspecified as acute or chronic, without hemorrhage or perforation (principal); K31.9 Disease of stomach and duodenum, unspecified
CPT/HCPCS: 43239; 85014; 85018

== ENCOUNTER → 2023-04-19 14:15 | Outpatient (CLI) | payer OTHER, SELFPAY ==
[2023-04-19 19:48] LABS: Amphetamine/Metha Screen,Urine Negative ng/ml (<1000)
[2023-04-19 19:49] LABS: Barbiturates Screen,Urine Negative ng/ml (<200)
[2023-04-19 19:50] LABS: Benzodiazepines Screen,Urine Negative ng/ml (<200); Cannabinoid Screen,Urine Positive ng/ml (<50)
[2023-04-19 19:51] LABS: Cocaine Screen,Urine Negative ng/ml (<300); Methadone Screen,Urine Negative ng/ml (<300)
[2023-04-19 19:52] LABS: Opiate Screen,Urine Positive ng/ml (<300)
[2023-04-19 19:54] LABS: Phencyclidine Screen,Urine Negative ng/ml (<25)
== END ==
PROVIDERS: PCP Emergency Medicine; Visit Provider Emergency Medicine
DX: F32.A Depression, unspecified (principal)
CPT/HCPCS: 80305

== ENCOUNTER → 2023-05-18 15:37 | Outpatient (CLI) | payer OTHER, SELFPAY ==
[2023-05-18 16:18] LABS: Basophils % 0.1 % (0.1-2.0); Eosinophils # 0.1 K/mm3 (0.0-0.4); Eosinophils % 0.9 % (0.1-12.0); Hemoglobin 10.2 g/dL (12.2-16.2); Lymphocytes # 1.1 K/mm3 (0.7-4.5); Lymphocytes % 16.9 % (10-50); Mean Corpuscular HGB Conc 30.9 g/dL (31.8-35.4); Mean Corpuscular Hemoglobin 27.6 pg (27.0-31.2); Mean Corpuscular Volume 89.4 fl (81-99); Mean Platelet Volume 8.5 fl (7.4-10.4); Monocytes # 0.3 K/mm3 (0.1-1.0); Monocytes % 4.6 % (1.7-9.3); Neutrophils # 4.9 K/mm3 (1.8-7.8); Neutrophils % 77.6 % (37.0-80.0); Platelet Count 338 K/mm3 (142-424); Red Blood Count 3.69 M/mm3 (4.20-5.40); Red Cell Distribution Width 18.8 % (11.5-17.5); White Blood Count 6.3 K/mm3 (4.8-10.8)
== END ==
PROVIDERS: PCP Emergency Medicine; Visit Provider Surgery
DX: D64.9 Anemia, unspecified (principal)
CPT/HCPCS: 36415; 85025

== ENCOUNTER → 2023-05-24 13:58 | Outpatient (CLI) | payer OTHER, SELFPAY | PROVIDERS: PCP Emergency Medicine; Visit Provider Internal Medicine Medical Oncology | DX: D64.9 Anemia, unspecified (principal) ==

== ENCOUNTER 2023-06-02 08:55 | Outpatient (CLI) | payer OTHER, SELFPAY ==
--- NOTE | 2023-06-02 08:55 | FL_ITS ---
FINAL REPORT CLINICAL HISTORY: anemia 2.16 fluoro time 1522.06 DAP FINDINGS: UPPER GI WITH SBFT HISTORY: Anemia. PROCEDURE: The patient ingested barium. Effervescent crystals were also administered. 27 Spot and overhead films were obtained. Additional barium was administered for a SBFT. FINDINGS: UGI: The esophagus is normal. There is a small sliding-type hiatal hernia. There is no gastroesophageal reflux. Peristalsis is normal. There are mildly prominent rugal folds which may be related to nondistention. The duodenal bulb is normal. SBFT: The brand planner film is normal. There is no evidence of obstruction. The mucosal fold pattern is normal. The terminal ilium is normal. Fluoro time: 2 minutes 16 seconds Total DAP: Not provided. Fluoro dose: Not provided. DAP: 1522.06 uGym2. Radiation exposure in Reference air Kerma: Not provided. IMPRESSION: Small sliding-type hiatal hernia. Mildly prominent rugal folds which may be related to nondistention. Otherwise, unremarkable exam. Films reviewed , interpreted and dictated by Dr. Gonzalez. Transcribed by Jeffery Hernandez PA-C. Reviewed, Interpreted and Dictated by Dejuan Gonzalez MD Transcribed by CHAPITO Colin Authenticated and . [facility]
[2023-06-02 11:18] VITALS: BMI 18.4
[2023-06-02 11:43] LABS: Basophils % 0.1 % (0.1-2.0); Eosinophils # 0.1 K/mm3 (0.0-0.4); Eosinophils % 2.4 % (0.1-12.0); Hematocrit 29.7 % (37.0-47.0); Hemoglobin 9.2 g/dL (12.2-16.2); Lymphocytes # 0.9 K/mm3 (0.7-4.5); Lymphocytes % 19.9 % (10-50); Mean Corpuscular HGB Conc 31.1 g/dL (31.8-35.4); Mean Corpuscular Hemoglobin 28.1 pg (27.0-31.2); Mean Corpuscular Volume 90.2 fl (81-99); Mean Platelet Volume 9.1 fl (7.4-10.4); Monocytes # 0.3 K/mm3 (0.1-1.0); Monocytes % 5.9 % (1.7-9.3); Neutrophils # 3.2 K/mm3 (1.8-7.8); Neutrophils % 71.7 % (37.0-80.0); Platelet Count 296 K/mm3 (142-424); Red Blood Count 3.29 M/mm3 (4.20-5.40); Red Cell Distribution Width 17.9 % (11.5-17.5); White Blood Count 4.4 K/mm3 (4.8-10.8)
[2023-06-02 12:01] LABS: Alanine Aminotransferase 12 U/L (12-78); Albumin Level 3.8 g/dl (3.5-5.0); Albumin/Globulin Ratio 1.2 (1.1-1.8); Alkaline Phosphatase 86 U/L (38-126); Anion Gap 9.9 mEq/L (5-15); Aspartate Amino Transferase 20 U/L (14-36); Bilirubin,Total 0.2 mg/dl (0.2-1.3); Blood Urea Nitrogen 14 mg/dl (7-17); Calcium 8.9 mg/dl (8.4-10.2); Carbon Dioxide 27 mmol/L (22.0-30.0); Chloride 104 mmol/L (98-107); Creatinine Clearance Estimated 52 mL/min (50-200); Estimated Glomerular Filt Rate 58 ml/min (>60); GFR (African American) 70 ML/MIN (>60); Globulin 3.1 g/dL (1.3-3.2); Glucose 87 mg/dl (74-100); Potassium 3.9 mmoL/L (3.5-5.1); Sodium 137 mmol/L (136-145); Total Protein,Serum 6.9 g/dl (6.3-8.2)
--- NOTE | 2023-06-02 12:35 | PC.NURSE ---
1125 - BLOOD DRAWN FROM LEFT AC USING BUTTERFLY NEEDLE TO CHECK LABS ORDERED BY DR LEYVA AT THIS TIME.
[2023-06-02 14:17] LABS: Iron 47 ug/dL (37-170)
[2023-06-02 14:29] LABS: Total Iron Binding Capacity 517 ug/dL (265-497)
[2023-06-02 14:46] LABS: Ferritin 4.77 ng/ml (11.1-264)
[2023-06-02 16:55] LABS: Vitamin B12 276 pg/mL (239-931)
== END 2023-06-02 11:30 | disposition home or self-care (01) ==
LOC: RAD 08:55 → INF 11:15
PROVIDERS: Internal Medicine Medical Oncology; PCP Emergency Medicine; Visit Provider Surgery
DX: K92.1 Melena (principal); D64.9 Anemia, unspecified
CPT/HCPCS: 36415; 74246; 74248; 80053; 82607; 82728; 82746; 83540; 83550; 85025

== ENCOUNTER 2023-06-08 10:01 | Outpatient (CLI) | payer OTHER, SELFPAY ==
[2023-06-08 10:35] VITALS: BP 101/59; PULSE 61; RESP 17; O2SAT 96
[2023-06-08 11:05] VITALS: BP 118/64; PULSE 68; RESP 16
--- NOTE | 2023-06-08 11:28 | PC.NURSE ---
1120 - BLOOD DRAWN FROM IV AT THIS TIME TO CHECK CBC PER DR MADDEN. IV REMOVED.
[2023-06-08 11:30] VITALS: BMI 18.4
[2023-06-08 11:37] LABS: Basophils % 0.3 % (0.1-2.0); Eosinophils # 0.1 K/mm3 (0.0-0.4); Hematocrit 25.9 % (37.0-47.0); Lymphocytes # 1.2 K/mm3 (0.7-4.5); Lymphocytes % 29.9 % (10-50); Mean Corpuscular Hemoglobin 27.9 pg (27.0-31.2); Mean Corpuscular Volume 89.9 fl (81-99); Mean Platelet Volume 9.5 fl (7.4-10.4); Monocytes # 0.3 K/mm3 (0.1-1.0); Monocytes % 7.1 % (1.7-9.3); Neutrophils # 2.4 K/mm3 (1.8-7.8); Neutrophils % 60.7 % (37.0-80.0); Platelet Count 243 K/mm3 (142-424); Red Blood Count 2.88 M/mm3 (4.20-5.40); White Blood Count 3.9 K/mm3 (4.8-10.8)
== END 2023-06-08 11:23 | disposition home or self-care (01) ==
LOC: INF 10:02
PROVIDERS: PCP Emergency Medicine; Visit Provider Internal Medicine Medical Oncology
DX: D50.0 Iron deficiency anemia secondary to blood loss (chronic) (principal)
CPT/HCPCS: 36415; 85025; 86850; 96365; J1756

== ENCOUNTER 2023-06-09 11:09 | Outpatient (CLI) | payer OTHER, SELFPAY ==
[2023-06-09] VITALS (10 sets, daily range): BP systolic 97–159; BP diastolic 52–91; PULSE 61–83; RESP 18; TEMP 36.7–36.8; O2SAT 98–100
--- NOTE | 2023-06-09 11:15 | PC.NURSE ---
1115-pt here to receive 1 unit prbcs for hgb 8.0 for symptomatic anemia with severe weakness and fatigue and history of blood in stool per .
== END 2023-06-09 14:24 | disposition home or self-care (01) ==
LOC: INF 11:09
PROVIDERS: PCP Emergency Medicine; Visit Provider Emergency Medicine
DX: D64.9 Anemia, unspecified (principal); R53.83 Other fatigue; R53.1 Weakness
CPT/HCPCS: 36430; P9016

== ENCOUNTER 2023-06-30 10:28 | Outpatient (CLI) | payer OTHER, SELFPAY ==
[2023-06-30 10:45] VITALS: BP 125/67; PULSE 68; RESP 18; O2SAT 98
[2023-06-30 11:23] VITALS: BP 123/76; PULSE 72; RESP 18; O2SAT 98
== END 2023-06-30 11:23 | disposition home or self-care (01) ==
LOC: INF 10:29
PROVIDERS: PCP Emergency Medicine; Visit Provider Emergency Medicine
DX: D50.0 Iron deficiency anemia secondary to blood loss (chronic) (principal)
CPT/HCPCS: 96365; J1756

== ENCOUNTER 2023-07-07 13:13 | Outpatient (CLI) | payer OTHER, SELFPAY ==
[2023-07-07 13:29] VITALS: BP 118/69; PULSE 62; RESP 18; O2SAT 99
[2023-07-07 14:15] VITALS: BP 126/71; PULSE 63; RESP 18; O2SAT 97
== END 2023-07-07 14:20 | disposition home or self-care (01) ==
LOC: INF 13:14
PROVIDERS: PCP Emergency Medicine; Visit Provider Internal Medicine Medical Oncology
DX: D50.0 Iron deficiency anemia secondary to blood loss (chronic) (principal)
CPT/HCPCS: 96365; J1756

== ENCOUNTER → 2023-07-11 17:06 | Outpatient (CLI) | payer OTHER, SELFPAY ==
[2023-07-11 17:31] LABS: Basophils % 0.3 % (0.1-2.0); Eosinophils # 0.1 K/mm3 (0.0-0.4); Eosinophils % 1.4 % (0.1-12.0); Hematocrit 35.8 % (37.0-47.0); Hemoglobin 11.9 g/dL (12.2-16.2); Lymphocytes # 1.6 K/mm3 (0.7-4.5); Mean Corpuscular HGB Conc 33.4 g/dL (31.8-35.4); Mean Corpuscular Hemoglobin 31.7 pg (27.0-31.2); Mean Corpuscular Volume 94.8 fl (81-99); Monocytes # 0.2 K/mm3 (0.1-1.0); Monocytes % 3.9 % (1.7-9.3); Neutrophils # 4.2 K/mm3 (1.8-7.8); Neutrophils % 68.4 % (37.0-80.0); Platelet Count 252 K/mm3 (142-424); Red Blood Count 3.77 M/mm3 (4.20-5.40); Red Cell Distribution Width 19.6 % (11.5-17.5); White Blood Count 6.2 K/mm3 (4.8-10.8)
[2023-07-11 18:04] LABS: Alanine Aminotransferase 15 U/L (12-78); Albumin Level 3.8 g/dl (3.5-5.0); Albumin/Globulin Ratio 1.4 (1.1-1.8); Alkaline Phosphatase 74 U/L (38-126); Anion Gap 8.9 mEq/L (5-15); Aspartate Amino Transferase 19 U/L (14-36); Blood Urea Nitrogen 17 mg/dl (7-17); Calcium 9.1 mg/dl (8.4-10.2); Carbon Dioxide 27 mmol/L (22.0-30.0); Chloride 107 mmol/L (98-107); Estimated Glomerular Filt Rate 58 ml/min (>60); GFR (African American) 70 ML/MIN (>60); Globulin 2.8 g/dL (1.3-3.2); Glucose 95 mg/dl (74-100); Potassium 3.9 mmoL/L (3.5-5.1); Sodium 139 mmol/L (136-145); Total Protein,Serum 6.6 g/dl (6.3-8.2)
[2023-07-11 18:06] LABS: Bilirubin,Total < 0.1 mg/dl (0.2-1.3)
[2023-07-12 01:41] LABS: Iron 75 ug/dL (37-170)
[2023-07-12 03:53] LABS: Thyroid Stimulating Hormone 1.27 uIU/mL (0.465-4.68)
== END ==
PROVIDERS: PCP Emergency Medicine; Visit Provider Emergency Medicine
DX: D50.0 Iron deficiency anemia secondary to blood loss (chronic) (principal)
CPT/HCPCS: 36415; 80053; 83540; 84443; 85025

== ENCOUNTER 2023-08-08 11:58 | Day surgery (SDC) | payer OTHER, SELFPAY ==
[2023-08-04 12:06] VITALS: BMI 18.4
--- NOTE | 2023-08-04 13:05 | SUR.PREOP ---
During preop phone call patient stated that she had an EPO on her only available mode of transportation that day. She states that she has had this order removed. Relayed this information to charge nurse who, upon further investigation, determined that pt would not be able to be discharged to the care of said person with existing order. Followed up with patient on phone who states that she has had this EPO lifted. Notified her that we would need documentation reflecting this in order to perform her procedure. Patient agrees to bring this documentation so that we can place it in her record. Katherine Loaiza notified of plan.
--- NOTE | 2023-08-08 12:24 | SUR.PREOP ---
When asked about papers that pt was aware she would need in order to proceed w/ planned colonoscopy pt stated that she did not have them, to call the courthouse . Dr. Renner at bedside at this time as well and explained to pt that we must have these papers or procedure would be cancelled. Pt verbalized understanding. Attempted to call ESPERANZA Roblero RN and Violette Hernandez w/ no answer at this time. filling and packing supervisor and [employer] RN then notified. Dieudonne Ordoñez RN attempting to locate childcare center administrator to get a definitive answer as to if this pt may be DC w/ who pt states she did have an EPO against. Dieudonne Ordoñez RN called back and per Violette Hernandez, since we do not have legal documentation of existing EPO she may be DC'd w/ as long as pt felt safe to be DC'd. Spoke w/ pt who states she does feel safe, Dieudonne Lucero RN at bedside and witnessed this as well. Pt aware of resources if she were to seek help or need medical attention. Pt DC'd @ 1223.
== END 2023-08-08 12:23 | disposition home or self-care (01) ==
LOC: OUTP 11:59
PROVIDERS: PCP Emergency Medicine; Visit Provider Surgery
PROC: 0DJD8ZZ Inspection of Lower Intestinal Tract, Via Natural or Artificial Opening Endoscopic (ICD-10-PCS; CPT 45378; principal; 2023-08-08 10:30)
DX: Z53.8 Procedure and treatment not carried out for other reasons (principal); D64.9 Anemia, unspecified; Z86.010 Personal history of colon polyps
CPT/HCPCS: 45378

== ENCOUNTER → 2023-08-11 12:30 | Outpatient (CLI) | payer OTHER, SELFPAY ==
[2023-08-11 13:06] LABS: Basophils % 0.6 % (0.1-2.0); Eosinophils # 0.1 K/mm3 (0.0-0.4); Eosinophils % 2.8 % (0.1-12.0); Hematocrit 34.9 % (37.0-47.0); Hemoglobin 11.8 g/dL (12.2-16.2); Lymphocytes # 1.4 K/mm3 (0.7-4.5); Lymphocytes % 36.4 % (10-50); Mean Corpuscular HGB Conc 33.8 g/dL (31.8-35.4); Mean Corpuscular Hemoglobin 33.7 pg (27.0-31.2); Mean Corpuscular Volume 99.7 fl (81-99); Mean Platelet Volume 8.8 fl (7.4-10.4); Monocytes # 0.2 K/mm3 (0.1-1.0); Monocytes % 4.1 % (1.7-9.3); Neutrophils # 2.2 K/mm3 (1.8-7.8); Neutrophils % 56.1 % (37.0-80.0); Platelet Count 223 K/mm3 (142-424); Red Cell Distribution Width 18.1 % (11.5-17.5); White Blood Count 3.9 K/mm3 (4.8-10.8)
[2023-08-11 13:31] LABS: Iron 81 ug/dL (37-170)
[2023-08-11 13:51] LABS: Total Iron Binding Capacity 274 ug/dL (265-497)
[2023-08-11 14:07] LABS: Ferritin 67.1 ng/ml (11.1-264)
[2023-08-11 21:11] LABS: Amphetamine/Metha Screen,Urine Positive ng/ml (<1000); Barbiturates Screen,Urine Negative ng/ml (<200)
[2023-08-11 21:12] LABS: Benzodiazepines Screen,Urine Negative ng/ml (<200); Cannabinoid Screen,Urine Positive ng/ml (<50)
[2023-08-11 21:13] LABS: Cocaine Screen,Urine Negative ng/ml (<300)
[2023-08-11 21:14] LABS: Methadone Screen,Urine Negative ng/ml (<300); Opiate Screen,Urine Positive ng/ml (<300)
[2023-08-11 21:15] LABS: Phencyclidine Screen,Urine Negative ng/ml (<25)
== END ==
PROVIDERS: PCP Emergency Medicine; Visit Provider Internal Medicine Medical Oncology
DX: D50.9 Iron deficiency anemia, unspecified (principal); Z79.899 Other long term (current) drug therapy
CPT/HCPCS: 36415; 80305; 82728; 83540; 83550; 85025

== ENCOUNTER → 2023-08-17 16:21 | Outpatient (CLI) | payer OTHER, SELFPAY ==
[2023-08-17 16:12] LABS: Amphetamine/Metha Screen,Urine Positive ng/ml (<1000)
[2023-08-17 16:14] LABS: Barbiturates Screen,Urine Negative ng/ml (<200)
[2023-08-17 16:15] LABS: Benzodiazepines Screen,Urine Negative ng/ml (<200); Cannabinoid Screen,Urine Positive ng/ml (<50)
[2023-08-17 16:18] LABS: Cocaine Screen,Urine Negative ng/ml (<300); Methadone Screen,Urine Negative ng/ml (<300)
[2023-08-17 16:19] LABS: Opiate Screen,Urine Positive ng/ml (<300)
[2023-08-17 16:20] LABS: Phencyclidine Screen,Urine Negative ng/ml (<25)
== END ==
PROVIDERS: PCP Emergency Medicine; Visit Provider Emergency Medicine
DX: Z79.899 Other long term (current) drug therapy (principal)
CPT/HCPCS: 80305

== ENCOUNTER → 2023-09-13 10:08 | Outpatient (CLI) | payer OTHER, SELFPAY ==
[2023-09-13 19:46] LABS: Barbiturates Screen,Urine Positive ng/ml (<200)
[2023-09-13 19:47] LABS: Amphetamine/Metha Screen,Urine Negative ng/ml (<1000); Cocaine Screen,Urine Negative ng/ml (<300)
[2023-09-13 19:48] LABS: Benzodiazepines Screen,Urine Negative ng/ml (<200)
[2023-09-13 19:49] LABS: Cannabinoid Screen,Urine Positive ng/ml (<50); Phencyclidine Screen,Urine Negative ng/ml (<25)
[2023-09-13 19:50] LABS: Methadone Screen,Urine Negative ng/ml (<300)
[2023-09-13 19:51] LABS: Opiate Screen,Urine Positive ng/ml (<300)
== END ==
PROVIDERS: PCP Family Medicine; Visit Provider Family Medicine
DX: N39.0 Urinary tract infection, site not specified (principal); B96.89 Other specified bacterial agents as the cause of diseases classified elsewhere; Z79.899 Other long term (current) drug therapy
CPT/HCPCS: 80305; 87086

== ENCOUNTER → 2023-09-14 15:18 | Outpatient (CLI) | payer OTHER, SELFPAY ==
[2023-09-14 17:01] LABS: Barbiturates Screen,Urine Positive ng/ml (<200)
[2023-09-14 17:02] LABS: Amphetamine/Metha Screen,Urine Negative ng/ml (<1000); Benzodiazepines Screen,Urine Negative ng/ml (<200)
[2023-09-14 17:03] LABS: Methadone Screen,Urine Negative ng/ml (<300)
[2023-09-14 17:04] LABS: Cannabinoid Screen,Urine Positive ng/ml (<50); Cocaine Screen,Urine Negative ng/ml (<300)
[2023-09-14 17:05] LABS: Opiate Screen,Urine Positive ng/ml (<300)
[2023-09-14 17:06] LABS: Phencyclidine Screen,Urine Negative ng/ml (<25)
[2023-09-21 20:22] LABS: Alprazolam Negative (Cutoff=100); Barbiturates Negative (Cutoff=200); Benzodiazepines Positive ng/mL (Cutoff=100); Clonazepam Positive (.); Clonazepam Confirm 349 ng/mL (Cutoff=100); Flurazepam Negative (Cutoff=100); Lorazepam Negative (Cutoff=100); Midazolam Negative (Cutoff=100); Temazepam Negative (Cutoff=100); Triazolam Negative (Cutoff=100)
== END ==
PROVIDERS: Visit Provider Family Medicine
DX: Z79.899 Other long term (current) drug therapy (principal)
CPT/HCPCS: 80305; 80345; 80346

== ENCOUNTER 2023-11-07 07:31 | Day surgery (SDC) | payer OTHER, SELFPAY ==
[2023-10-12 17:10] VITALS: BMI 16.8
--- NOTE | 2023-10-12 17:10 | SUR.PREOP ---
Spoke to pt about time change, she will be coming in at 0730 to register for procedure instead of original time. Pt is okay w/ this. Pt also aware she will need a flag car driver that will stay on campus during the duration of her procedure, verbalized understanding.
[2023-11-07] MEDS: LACTATED RINGERS 1000ML 1,000 ML 100 ML IV (07:44)
[2023-11-07 07:45] VITALS: BP 110/56; PULSE 81; RESP 18; TEMP 36.4; O2SAT 97
--- NOTE | 2023-11-07 08:08 | EXP.ANES.CKL ---
[facility] Disclaimer: The information contained in this section may have been updated after the patient was seen, as this information can be updated by other users. Medical History Allergies Cervical cancer COPD (chronic obstructive pulmonary disease) Coronary artery disease Depression with anxiety Edema GI bleed History of anemia History of COVID-19 Hyperlipidemia Hypertension ILD (interstitial lung disease) Kidney stone Ovarian cancer PAD (peripheral artery disease) Renal artery stenosis Sinus headache Tobacco abuse Ulcerative colitis Urinary tract infection Surgical History H/O total hysterectomy History of colonoscopy History of esophagogastroduodenoscopy (EGD) History of hand surgery History of knee surgery History of left heart catheterization History of renal stent Family History Mother Surgical complication COPD (chronic obstructive pulmonary disease) Stroke Father COPD (chronic obstructive pulmonary disease) Pneumonia Other Aneurysm Family history of hyperlipidemia Family history of hypertension Social History Smoking Status: Current every day smoker tobacco type: e-cigarettes years smoked: 20 smoking status stop date: 12/16/22 alcohol intake: never substance use type: denies use current occupational status: employed Travel in the last 8 weeks: None household members: spouse housing: house caffeine: No [facility] Anesthesia Checklist Patient Identification Patient Identification: Arm Band and Verbal (Name & ) Structural Data Admitted From: Home Planned Operative Procedure/s: Colonoscopy Consent for Planned Operative Procedure(s) Verified: Yes NPO Status Verified Time NPO: 00:00 Additional verifications Anesthesia Reactions: No Hx Blood Transfusions: No Blood Transfusion Reaction: No Airway Assessment Mallampati Score:: Class II C-Spine Mobility Assessed: Yes TMJ Mobility Assessed: Yes Dentition: Dentures-poor fitting Neurological Assessment Level of Consciousness: Awake Hx Seizures: No Numbness or tingling in extremities: No Anesthesia Plan Anesthesia Risk discussed: Yes Anesthesia Plan: Verified ASA Class: III Anesthesia Type: MAC
--- NOTE | 2023-11-07 08:41 | HMH.SCOPE ---
Procedure: Date: 11/07/23 Patient Date of :: 1970 Procedure Performed:: Colonoscopy Indications:: Anemia Performing Provider:: Lars Renner MD Referring Provider:: . Sedation:: Monitored anesthesia care Procedure:: After informed consent was obtained the patient was taken to the endoscopy suite. Sedation ensued after the patient was transferred to the left lateral decubitus position. Pulse, blood pressure, and oxygen saturation were monitored throughout the procedure. Digital rectal exam revealed no significant abnormality. The colonoscope was placed in position. The entire colon was evaluated. The colonoscope was carefully removed and the patient was transferred to recovery in stable condition. Please see findings and specimens below for detail. Findings:: Bowel preparation exceedingly poor Specimens:: None Recommendations:: Continue evaluation regarding anemia (capsule endoscopy, etc.) Short-term repeat colonoscopy with extended bowel preparation. Consider evaluation by the gastroenterology service secondary to likely chronic constipation (colonoscopy deferred to the GI service if evaluation completed) Complications:: No immediate with the exception of exceedingly poor bowel preparation Estimated blood obtained (mL): 0 Colonoscopy Component Colonoscopy Component Was a colonoscopy performed during today's procedure?: Yes Recommended follow up colonoscopy of at least 10 years?: No If no, follow up colonoscopy recommended in ___ years?: (See above) Reason for not recommending >/= 10 yr follow-up interval?: (See above)
[2023-11-07 08:43] VITALS: O2SAT 95
[2023-11-07 09:14] VITALS: BP 116/64; PULSE 80; RESP 14; O2SAT 98
[2023-11-07 09:24] VITALS: BP 116/54; PULSE 82; RESP 17; O2SAT 98
[2023-11-07 09:34] VITALS: BP 111/65; PULSE 73; RESP 17; O2SAT 100
[2023-11-07 09:44] VITALS: BP 111/65; PULSE 73; RESP 17; O2SAT 100
== END 2023-11-07 10:00 | disposition home or self-care (01) ==
PROVIDERS: Visit Provider Surgery
PROC: 0DJD8ZZ Inspection of Lower Intestinal Tract, Via Natural or Artificial Opening Endoscopic (ICD-10-PCS; CPT 45378; principal; 2023-11-07 08:30)
DX: D64.9 Anemia, unspecified (principal); Z91.199 Patient's noncompliance with other medical treatment and regimen due to unspecified reason
CPT/HCPCS: 45378; J2704

== ENCOUNTER 2024-05-22 16:27 | Emergency (ER) | payer OTHER, SELFPAY ==
[2024-05-22 16:45] VITALS: BP 158/94; PULSE 88; RESP 19; TEMP 36.7; O2SAT 97
--- NOTE | 2024-05-22 17:29 | ED_ITS ---
Discharge Plan Disposition Patient Disposition: Home, Self-Care Condition: Good Prescriptions Prescriptions: No Action ibuprofen 800 mg tablet 800 mg PO DAILY Patient Comments: TAKE 1 TABLET BY MOUTH EVERY 8 HOURS NEEDED FOR MILD PAIN pantoprazole 40 mg tablet,delayed release (DR/EC) 40 mg PO DAILY Patient Comments: TAKE 1 TABLET BY MOUTH TWICE DAILY estradiol 2 mg tablet 2 mg PO DAILY Patient Comments: TAKE 1 TABLET BY MOUTH ONCE DAILY . APPOINTMENT REQUIRED FOR FUTURE REFILLS metoprolol tartrate 25 mg tablet 25 mg PO DAILY Patient Comments: TAKE 1 TABLET BY MOUTH TWICE DAILY FOR HIGH BLOOD PRESSURE duloxetine 60 mg capsule,delayed release(DR/EC) 60 mg PO DAILY Patient Comments: TAKE 1 CAPSULE BY MOUTH ONCE DAILY FOR DEPRESSION buprenorphine-naloxone 8-2 mg film 1 film sublingual DAILY Referrals Follow up/Referrals: Jeevan Claire APRN [Primary Care Provider] - See instructions Activity Restrictions/Add. Instructions Additional Instructions/Restrictions: Follow up with your Family Doctor as discussed Go straight to ER if any loss of control, slurred speech or loss of movement in hand or any life threatening symptoms Clinical Impressions Clinical Impression: Numbness and tingling in right hand Instructions Patient Instructions: DI for Numbness/Tingling Print Language Print Language: Turkmen Discharge ED Provider: Leena Mahmood [facility] [place] HPI General Stated complaint: right hand numbness, pain Mode of Arrival: Ambulatory Source of Information: Patient Limitations: No Limitations Time Seen by Provider: 05/22/24 17:29 Description of Symptoms (Recalled from Triage Doc. by RN): PATIENT C/O NUMBNESS AND SHOCKING SENSATIONS TO RIGHT HAND THAT STARTED APPROX 1 WEEK AGO HEENT Symptoms (Recalled from RN notes): No Resp Symptoms (Recalled from RN notes): No Skin Symptoms (Recalled from RN notes): No MS Symptoms (Recalled from RN notes): Yes Functional Status (Recalled from RN notes): WNL History of Present Illness Provider Complaint: Patient states that she has been having numb tingly like feeing in her right hand from her fingertips to the mid of her hand and at times feels shocking sensations that shoot through them States that it has been going on for a week now States that she wanted to come in and get MRI or CT scan and she made appointment to see PCP but its not until next week Denies slurred speech Denies any other numbness just in her hand in the upper half of her palm and fingers but still able to move them easily Related Data Home Medications ?Medication ?Instructions ?Recorded ?Confirmed buprenorphine 8 mg-naloxone 2 mg 1 film sublingual DAILY 05/22/24 05/22/24 sublingual film duloxetine 60 mg capsule,delayed 60 mg PO DAILY 05/22/24 05/22/24 release estradiol 2 mg tablet 2 mg PO DAILY 05/22/24 05/22/24 ibuprofen 800 mg tablet 800 mg PO DAILY 05/22/24 05/22/24 metoprolol tartrate 25 mg tablet 25 mg PO DAILY 05/22/24 05/22/24 pantoprazole 40 mg tablet,delayed 40 mg PO DAILY 05/22/24 05/22/24 release Allergies Allergy/AdvReac Type Severity Reaction Status Date / Time aspirin Allergy Unknown Verified 11/07/23 07:42 allergy reaction bee venom protein (honey bee) Allergy Unknown Verified 11/07/23 07:42 allergy reaction morphine Allergy Unknown Verified 11/07/23 07:42 allergy reaction Worker's Comp Is this a Worker's Comp case?: No [facility] Disclaimer: The information contained in this section may have been updated after the patient was seen, as this information can be updated by other users. Medical History Allergies Cervical cancer COPD (chronic obstructive pulmonary disease) Coronary artery disease Depression with anxiety Edema GI bleed History of anemia History of COVID-19 Hyperlipidemia Hypertension ILD (interstitial lung disease) Kidney stone Ovarian cancer PAD (peripheral artery disease) Renal artery stenosis Sinus headache Tobacco abuse Ulcerative colitis Urinary tract infection Surgical History H/O total hysterectomy History of colonoscopy History of esophagogastroduodenoscopy (EGD) History of hand surgery History of knee surgery History of left heart catheterization History of renal stent Family History Mother Surgical complication COPD (chronic obstructive pulmonary disease) Stroke Father COPD (chronic obstructive pulmonary disease) Pneumonia Other Aneurysm Family history of hyperlipidemia Family history of hypertension Social History Smoking Status: Current every day smoker tobacco type: e-cigarettes years smoked: 20 smoking status stop date: 12/16/22 alcohol intake: never substance use type: denies use current occupational status: employed Travel in the last 8 weeks: None household members: spouse housing: house caffeine: No ROS Obtained: Yes All systems reviewed & no additional complaints except as documented and Yes Systems reviewed as appropriate & no additional complaints except as documented Constitutional Constitutional: Reports system reviewed and no additional complaints, except as documented and Reports as per HPI ENT Ears, Nose, Mouth, and Throat: Reports system reviewed and no additional complaints, except as documented and Reports as per HPI Cardiovascular Cardiovascular: Reports system reviewed and no additional complaints, except as documented and Reports as per HPI Respiratory Respiratory: Reports system reviewed and no additional complaints, except as documented and Reports as per HPI Gastrointestinal Gastrointestingal: Reports system reviewed and no additional complaints, except as documented and as per HPI Musculoskeletal Musculoskeletal: Reports system reviewed and no additional complaints, except as documented, Reports as per HPI and Reports other Comments: numb tingly feeling in her right hand from the middle of her palm to fingertips with shocking like sensations at times Physical Exam General General appearance: alert and in no apparent distress ENT ENT exam: Present mucous membranes moist Respiratory Respiratory exam: Present normal lung sounds bilaterally; Absent respiratory distress or wheezes Cardiovascular Cardiovascular exam: Present regular rate, normal rhythm and normal heart sounds Expanded Upper Extremity Exam Right: Hand exam: Present full ROM and other (reports numb tingly feeling in hand with 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, no discoloration ); Absent tenderness, swelling, abrasion, ecchymosis or erythema Vascular exam: Normal capillary refill and radial pulse Neurological Exam Neurological exam: Present alert, oriented X3 and normal gait Medical Decision Making Tobias Inquiry Pt receiving controlled substance: No Tobias was queried for this patient: No Vital Signs: 05/22/24 16:45 Temperature 98.0 F Temperature Source Oral Pulse Rate [Left Brachial] 88 Respiratory Rate 19 Blood Pressure [Left Arm] 158/94 H Blood Pressure Mean [Left Arm] 115 Blood Pressure Source [Left Arm] Automatic Cuff Blood Pressure Position [Left Arm] Sitting 02 Sat by Pulse Oximetry 97 Oxygen Delivery Method Room Air Medical Decision Narrative: Patient requesting MRI or CT scan discussed with patient that those test cannot be ordered in the UTC that we could transfer her to the ED for further work up and evaluation and she declined States she will see her PCP denies slurred speech, denies loss of control and symptoms have been occcuring for over a week States that she will follow up with PCP for further evaluation and testing patient given strict return precautions
[2024-05-22 17:43] VITALS: BP 158/94; PULSE 88; RESP 19; TEMP 36.7; O2SAT 97
== END 2024-05-22 17:45 | disposition home or self-care (01) ==
PROVIDERS: Emergency Provider Nurse Practitioner; PCP Nurse Practitioner Family
DX: R20.2 Paresthesia of skin (principal)
CPT/HCPCS: 99203; 99212; G0463

== ENCOUNTER 2024-09-27 17:02 | Emergency (ER) | payer OTHER, SELFPAY ==
[2024-09-27 18:30] VITALS: BP 175/86; PULSE 62; RESP 16; TEMP 36.8; O2SAT 97
--- NOTE | 2024-09-27 18:38 | EXP.UTC ---
Discharge Plan Disposition Patient Disposition: Home, Self-Care Condition: Good Prescriptions Prescriptions: New nitrofurantoin monohyd/m-cryst [Macrobid] 100 mg capsule 100 mg PO Q12H 7 Days Qty: 14 0RF Rx Instructions: must administer with a meal/food phenazopyridine [Pyridium] 200 mg tablet 200 mg PO Q8H 2 Days Qty: 6 0RF No Action atorvastatin 40 mg tablet 40 mg PO HS Patient Comments: TAKE 1 TABLET BY MOUTH AT BEDTIME NIGHTLY FOR CHOLESTEROL estradiol 2 mg tablet 2 mg PO DAILY Patient Comments: TAKE 1 TABLET BY MOUTH ONCE DAILY. APPOINTMENT REQUIRED FOR FUTURE REFILLS. NO MORE. duloxetine 60 mg capsule,delayed release(DR/EC) 60 mg PO DAILY Patient Comments: TAKE 1 CAPSULE BY MOUTH ONCE DAILY FOR DEPRESSION buprenorphine-naloxone 8-2 mg film 1 film sublingual DAILY Referrals Follow up/Referrals: Nikki Jacinto PA [Primary Care Provider] - See instructions Activity Restrictions/Add. Instructions Additional Instructions/Restrictions: *Increase fluids. Water not Soda or Tea *Start antibiotic immediately and be sure to take as ordered for the FULL length of time although you should start to see improvement over the next 48 hours *Pyridium as needed Remember this medication will turn your urine . This is normal but it will stain what ever it gets on *You should not use Pyridium for more than 48 hours. If so , follow up with your primary physician to review urine culture and ensure that antibiotic is adequate for infection *Be SURE to follow up anytime for new or worsening symptoms with your family doctor. AND in 48 hours for urine culture results with your family doctor, if you do not have a doctor then you may call back to the [facility] for urine culture results and further treatment. We do recommend that you choose and establish care with a Primary Care Physician. ?AND follow up with them ?in 10-14 days to repeat UA to ensure infection is resolved and blood no longer present *Be sure to let your PCP know that we sent urine cultures from the [facility] so they can follow up to ensure that you area the on the correct antibiotic Call your doctor office and make appointment for 48 hours (2 days from today) ?to follow up and get the results of your urine culture and further treatment Clinical Impressions Clinical Impression: UTI (urinary tract infection) Qualifiers: Urinary tract infection type: site unspecified Hematuria presence: without hematuria Qualified Code(s): N39.0 - Urinary tract infection, site not specified Instructions Patient Instructions: DI for Urinary Tract Infection (UTI), Urinary Tract Infection, Nitrofurantoin Print Language Print Language: Bulgarian Discharge ED Provider: Leena Mahmood [facility] [place] HPI General Stated complaint: possible uti Time Seen by Provider: 09/27/24 18:39 History of Present Illness Provider Complaint: Patient states that she feels like she has a UTI and wanted to come get checked before it got too bad States that she has been having burning with urination and feeling of urgency and frequency and pressure like feeling in her lower abdomen and achy in her lower back area States that when she was urinating felt like she was peeing needles and it made her nauseous from the burning pain Related Data Home Medications ?Medication ?Instructions ?Recorded ?Confirmed atorvastatin 40 mg tablet 40 mg PO HS 09/27/24 09/27/24 buprenorphine 8 mg-naloxone 2 mg 1 film sublingual DAILY 09/27/24 09/27/24 sublingual film duloxetine 60 mg capsule,delayed 60 mg PO DAILY 09/27/24 09/27/24 release estradiol 2 mg tablet 2 mg PO DAILY 09/27/24 09/27/24 Previous Rx's ?Medication ?Instructions ?Recorded nitrofurantoin 100 mg PO Q12H 7 days #14 caps 09/27/24 monohydrate/macrocrystals 100 mg capsule (Macrobid) phenazopyridine 200 mg tablet 200 mg PO Q8H pain 2 days #6 tabs 09/27/24 (Pyridium) Allergies Allergy/AdvReac Type Severity Reaction Status Date / Time aspirin Allergy Unknown Verified 11/07/23 07:42 allergy reaction bee venom protein (honey bee) Allergy Unknown Verified 11/07/23 07:42 allergy reaction morphine Allergy Unknown Verified 11/07/23 07:42 allergy reaction [facility] Disclaimer: The information contained in this section may have been updated after the patient was seen, as this information can be updated by other users. Medical History Allergies Cervical cancer COPD (chronic obstructive pulmonary disease) Coronary artery disease Depression with anxiety Edema GI bleed History of anemia History of COVID-19 Hyperlipidemia Hypertension ILD (interstitial lung disease) Kidney stone Ovarian cancer PAD (peripheral artery disease) Renal artery stenosis Sinus headache Tobacco abuse Ulcerative colitis Urinary tract infection Surgical History H/O total hysterectomy History of colonoscopy History of esophagogastroduodenoscopy (EGD) History of hand surgery History of knee surgery History of left heart catheterization History of renal stent Family History Mother Surgical complication COPD (chronic obstructive pulmonary disease) Stroke Father COPD (chronic obstructive pulmonary disease) Pneumonia Other Aneurysm Family history of hyperlipidemia Family history of hypertension Social History Smoking Status: Current every day smoker tobacco type: e-cigarettes years smoked: 20 smoking status stop date: 12/16/22 alcohol intake: never substance use type: denies use current occupational status: employed Travel in the last 8 weeks: None household members: spouse housing: house caffeine: No Have you lived/traveled outside [place] in past 30 days?: No Contact w/someone who lives/traveled outside [place] past 30 days?: No Exposure to someone with infectious disease in past 14 days?: No Do you have a fever (greater than 100.4 F or 38 C)?: No Have you tested positive for COVID-19: No Exposed to someone with COVID-19 in past 14 days?: No Do you have a sore throat?: No Do you have a cough?: No Do you have any weakness?: No Do you have any diarrhea?: No Are you experiencing any unusual bleeding?: No Do you have any muscle aches/pain?: No Do you have any abdominal pain?: No Are you experiencing loss of taste or smell?: No ROS Obtained: Yes All systems reviewed & no additional complaints except as documented and Yes Systems reviewed as appropriate & no additional complaints except as documented Constitutional Constitutional: Reports system reviewed and no additional complaints, except as documented, Reports as per HPI, Denies body ache, Denies chills and Denies fever(s) ENT Ears, Nose, Mouth, and Throat: Reports system reviewed and no additional complaints, except as documented, Reports as per HPI, Denies otalgia, Denies nasal congestion, Denies nasal discharge and Denies sore throat Cardiovascular Cardiovascular: Reports system reviewed and no additional complaints, except as documented and Reports as per HPI Respiratory Respiratory: Reports system reviewed and no additional complaints, except as documented and Reports as per HPI Gastrointestinal Gastrointestingal: Reports system reviewed and no additional complaints, except as documented, as per HPI and nausea (from the burning pain); Denies abdominal pain Genitourinary Female Genitourinary: Reports system reviewed and no additional complaints, except as documented, Reports as per HPI, Reports dysuria, Reports flank pain, Reports urinary frequency and Reports urinary urgency Musculoskeletal Musculoskeletal: Reports system reviewed and no additional complaints, except as documented and Reports as per HPI Integumentary/Breasts Skin/Breast: Reports system reviewed and no additional complaints, except as documented and Reports as per HPI Physical Exam General General appearance: alert and in no apparent distress ENT ENT exam: Present mucous membranes moist Respiratory Respiratory exam: Present normal lung sounds bilaterally; Absent respiratory distress or wheezes Cardiovascular Cardiovascular exam: Present regular rate, normal rhythm and normal heart sounds Abdominal Exam Abdominal exam: Present soft and normal bowel sounds; Absent distention or tenderness Neurological Exam Neurological exam: Present alert, oriented X3 and normal gait Medical Decision Making Medical Records Screening: Per USPSTF and CDC recommendations, given the prevalence of disease in our region, it is our hospital?s policy to screen for HIV and viral Hepatitis for all patients aged 18 and over and those with ongoing risk factors. Tobias Inquiry Pt receiving controlled substance: No Tobias was queried for this patient: No Lab Data Lab results reviewed: Yes I reviewed the patient's lab results. Orders (Tests/Meds): ORDERS Category Date Time Status Urine Culture Stat Micro 09/27/24 18:36 Ordered
[2024-09-27 18:47] LABS: Apearance,Urine Clear (Clear); Bilirubin,Urine Negative (Negative); Blood, Urine Negative (Negative); Color,Urine Yellow (Yellow); Glucose,Urine (UA) Negative (Negative); Ketones,Urine Negative (Negative); Protein,Urine Negative (Negative); Specific Gravity, Urine 1.015 (1.005-1.030); UTC Leukocyte Esterase,Urine 3+ (Negative); UTC Nitrate,Urine Positive (Negative); Urobilinogen,Urine 0.2 EU/dl (0.2)
[2024-09-27 18:51] VITALS: BP 175/86; PULSE 62; RESP 16; TEMP 36.8; O2SAT 97
--- NOTE | 2024-10-03 17:51 | PC.NURSE ---
PATIENT CONTACTED ABOUT URINE CULTURES RESULTS, STATES NO BETTER ON CURRENT COURSE. BELEN RUELAS APRN STATED HE WILL CHANGED HER ANTIBIOTICS AND FOR HER TO FOLLOW UP IF NOT IMPROVING. PATIENT VERBALIZED UNDERSTANDING.
== END 2024-09-27 18:58 | disposition home or self-care (01) ==
PROVIDERS: Emergency Provider Nurse Practitioner; PCP Physician Assistant
DX: N39.0 Urinary tract infection, site not specified (principal)
CPT/HCPCS: 81003; 87086; 87088; 87186; 99213; G0381

== ENCOUNTER 2024-10-24 13:00 | Emergency (ER) | payer OTHER, SELFPAY ==
[2024-10-24 13:15] VITALS: BP 160/76; PULSE 76; RESP 18; TEMP 37.1; O2SAT 99; BMI 22.3
[2024-10-24 13:23] LABS: Apearance,Urine Cloudy (Clear); Color,Urine Dark Yellow (Yellow)
[2024-10-24 13:24] LABS: Bilirubin,Urine Negative (Negative); Blood, Urine Trace (Negative); Glucose,Urine (UA) Negative (Negative); Ketones,Urine Negative (Negative); PH,Urine 6.5 (5.0-8.5); Protein,Urine Negative (Negative); UTC Leukocyte Esterase,Urine 3+ (Negative); Urobilinogen,Urine 0.2 EU/dl (0.2)
[2024-10-24 13:25] LABS: UTC Nitrate,Urine Negative (Negative)
--- NOTE | 2024-10-24 13:25 | ED_ITS ---
Discharge Plan Disposition Patient Disposition: Home, Self-Care Condition: Good Prescriptions Prescriptions: New phenazopyridine 200 mg Tablet 200 mg PO TID 2 Days Qty: 6 0RF ondansetron 4 mg Tablet,Disintegrating 4 mg PO Q8H PRN (Reason: Nausea) Qty: 12 0RF nitrofurantoin monohyd/m-cryst [Macrobid] 100 mg Capsule 100 mg PO BID Qty: 10 0RF Rx Instructions: must administer with a meal/food No Action atorvastatin 40 mg tablet 40 mg PO HS Patient Comments: TAKE 1 TABLET BY MOUTH AT BEDTIME NIGHTLY FOR CHOLESTEROL estradiol 2 mg tablet 2 mg PO DAILY Patient Comments: TAKE 1 TABLET BY MOUTH ONCE DAILY. APPOINTMENT REQUIRED FOR FUTURE REFILLS. NO MORE. duloxetine 60 mg capsule,delayed release(DR/EC) 60 mg PO DAILY Referrals Follow up/Referrals: Nikki Jacinto PA [Primary Care Provider] - See instructions Activity Restrictions/Add. Instructions Additional Instructions/Restrictions: Drink plenty of fluids. Take tylenol or ibuprofen for pain or fever. Take the medications as directed. Follow up with your regular doctor. GO TO THE ER FOR ANY WORSENING SYMPTOMS The pyridium will make your urine turn orange, this is an expected side effect. It will stain your clothes if it comes into contact with them. We will culture the urine. That will tell what bacteria is causing your infection and which antibiotics will treat it best.This test takes 3 days to complete. Clinical Impressions Clinical Impression: UTI (urinary tract infection) Instructions Patient Instructions: Urinary Tract Infection, DI for Urinary Tract Infection (UTI), Ondansetron, Phenazopyridine, Nitrofurantoin Print Language Print Language: Greenlandic Discharge ED Provider: Preet Salinas [facility] [place] General Stated complaint: UTI Mode of Arrival: Ambulatory Source of Information: Patient Limitations: No Limitations Time Seen by Provider: 10/24/24 13:23 Description of Symptoms (Recalled from Triage Doc. by RN): PATIENT C/O PELVIC PAIN X 3 DAYS HEENT Symptoms (Recalled from RN notes): No Resp Symptoms (Recalled from RN notes): No Skin Symptoms (Recalled from RN notes): No MS Symptoms (Recalled from RN notes): No Functional Status (Recalled from RN notes): WNL History of Present Illness Provider Complaint: She states that for the past 3 days she has had dysuria, urinary frequency, and low back pain. Related Data Home Medications ?Medication ?Instructions ?Recorded ?Confirmed atorvastatin 40 mg tablet 40 mg PO HS 10/24/24 10/24/24 duloxetine 60 mg capsule,delayed 60 mg PO DAILY 10/24/24 10/24/24 release estradiol 2 mg tablet 2 mg PO DAILY 10/24/24 10/24/24 Previous Rx's ?Medication ?Instructions ?Recorded nitrofurantoin 100 mg PO BID #10 caps 10/24/24 monohydrate/macrocrystals 100 mg capsule (Macrobid) ondansetron 4 mg disintegrating 4 mg PO Q8H PRN Nausea #12 tabs 10/24/24 tablet phenazopyridine 200 mg tablet 200 mg PO TID 2 days #6 tabs 10/24/24 Allergies Allergy/AdvReac Type Severity Reaction Status Date / Time aspirin Allergy Unknown Verified 11/07/23 07:42 allergy reaction bee venom protein (honey bee) Allergy Unknown Verified 11/07/23 07:42 allergy reaction morphine Allergy Unknown Verified 11/07/23 07:42 allergy reaction Worker's Comp Is this a Worker's Comp case?: No [facility] Disclaimer: The information contained in this section may have been updated after the patient was seen, as this information can be updated by other users. Medical History Allergies Cervical cancer COPD (chronic obstructive pulmonary disease) Coronary artery disease Depression with anxiety Edema GI bleed History of anemia History of COVID-19 Hyperlipidemia Hypertension ILD (interstitial lung disease) Kidney stone Ovarian cancer PAD (peripheral artery disease) Renal artery stenosis Sinus headache Tobacco abuse Ulcerative colitis Urinary tract infection Surgical History H/O total hysterectomy History of colonoscopy History of esophagogastroduodenoscopy (EGD) History of hand surgery History of knee surgery History of left heart catheterization History of renal stent Family History Mother Surgical complication COPD (chronic obstructive pulmonary disease) Stroke Father COPD (chronic obstructive pulmonary disease) Pneumonia Other Aneurysm Family history of hyperlipidemia Family history of hypertension Social History Smoking Status: Current every day smoker tobacco type: e-cigarettes years smoked: 20 smoking status stop date: 12/16/22 alcohol intake: never substance use type: denies use current occupational status: employed Travel in the last 8 weeks: None household members: spouse housing: house caffeine: No Have you lived/traveled outside [place] in past 30 days?: No Contact w/someone who lives/traveled outside [place] past 30 days?: No Exposure to someone with infectious disease in past 14 days?: No Do you have a fever (greater than 100.4 F or 38 C)?: No Have you tested positive for COVID-19: No Exposed to someone with COVID-19 in past 14 days?: No Do you have a sore throat?: No Do you have a cough?: No Do you have any weakness?: No Do you have any diarrhea?: No Are you experiencing any unusual bleeding?: No Do you have any muscle aches/pain?: No Do you have any abdominal pain?: No Are you experiencing loss of taste or smell?: No ROS Obtained: Yes All systems reviewed & no additional complaints except as documented Constitutional Constitutional: Reports system reviewed and no additional complaints, except as documented, Denies chills and Denies fever(s) Eyes Eyes: Denies eye discharge ENT Ears, Nose, Mouth, and Throat: Denies dysphagia, Denies sore throat and Denies throat swelling Cardiovascular Cardiovascular: Denies chest pain and Denies dyspnea Respiratory Respiratory: Denies chest congestion, Denies cough and Denies dyspnea Gastrointestinal Gastrointestingal: Denies abdominal pain, constipation, diarrhea, dysphagia, nausea or vomiting Genitourinary Female Genitourinary: Reports as per HPI, Reports dysuria, Reports sexual dysfunction, Reports urinary frequency, Denies urinary incontinence and Reports urinary hesitancy Musculoskeletal Musculoskeletal: Denies arthralgias and Reports back pain Integumentary/Breasts Skin/Breast: Denies rash Neurologic Neurologic: Denies paresthesias Allergic/Immunologic Allergic/Immunologic: Denies throat swelling Physical Exam General General appearance: alert and in no apparent distress Head Head exam: atraumatic and normocephalic Eye Eye exam: Present normal appearance, PERRL and EOMI ENT ENT exam: Present normal exam, mucous membranes moist, TM's normal bilaterally and normal external ear exam Neck Neck exam: Present normal inspection, full ROM and trachea midline; Absent tenderness, meningismus or lymphadenopathy Chest Chest inspection: Present normal inspection and symmetric chest wall rise; Absent tenderness Respiratory Respiratory exam: Present normal lung sounds bilaterally; Absent respiratory distress, wheezes or stridor Cardiovascular Cardiovascular exam: Present regular rate, normal rhythm and normal heart sounds Abdominal Exam Abdominal exam: Present soft and normal bowel sounds; Absent distention, tenderness, guarding, rebound, rigidity, incision, psoas sign, obturator sign, heel tap sign, Taylor's sign, Rovsing's sign or tenderness at McBurney's Point Extremities Exam Extremities exam: Present normal inspection, full ROM and normal capillary refill; Absent tenderness, edema, joint swelling, calf tenderness or cyanosis Back Exam Back exam: Present normal inspection and full ROM; Absent tenderness, CVA tenderness (R) or CVA tenderness (L) Neurological Exam Neurological exam: Present alert, oriented X3 and normal gait Psychiatric Psychiatric exam: Present normal affect and normal mood Skin Skin exam: Present warm, dry, intact and normal color Lymphatic Lymphatic Findings: no adenopathy Medical Decision Making Medical Records Medical records reviewed: No I reviewed the patient's medical records. Screening: Per USPSTF and CDC recommendations, given the prevalence of disease in our region, it is our hospital?s policy to screen for HIV and viral Hepatitis for all patients aged 18 and over and those with ongoing risk factors. Tobias Inquiry Pt receiving controlled substance: No Vital Signs: 10/24/24 13:15 Temperature 98.7 F Temperature Source Oral Pulse Rate [Left Brachial] 76 Respiratory Rate 18 Blood Pressure [Left Arm] 160/76 H Blood Pressure Mean [Left Arm] 104 Blood Pressure Source [Left Arm] Automatic Cuff Blood Pressure Position [Left Arm] Sitting 02 Sat by Pulse Oximetry 99 Oxygen Delivery Method Room Air Lab Data Lab results reviewed: Yes I reviewed the patient's lab results. Lab Results 10/24/24 13:03: Urine Color Dark yellow, Urine Appearance Cloudy, Urine pH 6.5, Ur Specific [place] 1.020, Urine Protein Negative, Urine Glucose (UA) Negative, Urine Ketones Negative, Urine Blood Trace, Urine Nitrate Negative, Urine Bilirubin Negative, Urine Urobilinogen 0.2, Ur Leukocyte Esterase 3+ A Orders (Tests/Meds): ORDERS Category Date Time Status Urine Culture Stat Micro 10/24/24 13:03 Ordered
[2024-10-24 13:59] VITALS: BP 160/76; PULSE 76; RESP 18; TEMP 37.1; O2SAT 99
== END 2024-10-24 14:03 | disposition home or self-care (01) ==
PROVIDERS: Emergency Provider Nurse Practitioner Family; PCP Physician Assistant
DX: N39.0 Urinary tract infection, site not specified (principal)
CPT/HCPCS: 81003; 87086; 99212; G0381

== ENCOUNTER 2025-02-23 17:02 | Outpatient (CLI) | payer OTHER, SELFPAY | END 2025-02-23 23:59 | disposition home or self-care (01) | LOC: LAB.DROPOF 02-25 10:26 | PROVIDERS: PCP Physician Assistant; Visit Provider Nurse Practitioner Family | DX: R35.0 Frequency of micturition (principal) | CPT/HCPCS: 87086 ==

== ENCOUNTER 2025-09-07 14:55 | Emergency (ER) | payer OTHER, SELFPAY ==
[2025-09-07] VITALS (8 sets, daily range): BP systolic 130–151; BP diastolic 67–88; PULSE 63–77; RESP 16–18; TEMP 36.7; O2SAT 96–100; BMI 21.2
--- OUTSIDE RECORDS SUMMARY | 2025-09-07 15:07 | XMS_ITS | Data Portability ---
Author Organization [facility] [employer] [place] - [place] Address [address] [place] [address] Assessment No assessment recorded. Plan of Treatment Reminders Order Date Submit Date Provider Last Modified By Organization Details Last Modified Time Details Appointments None recorded. Lab urinalysis, dipstick 2024 025 [email or web address] 9 [facility], [address] [place] [address], [phone], 5 09:31:41 culture, urine 2024 025 [facility] [address] [place] [address], [address], 5 07:32:39 urinalysis, dipstick 2024 025 [email or web address] [facility], [address] [place] [address], [phone], 5 15:11:51 culture, urine 2024 025 [facility], [address] [place] [address], [address], 5 08:13:18 lipid panel, serum 2024 025 CLAIRESite9[facility] [address] [place], [address], 5 08:13:16 CMP, serum or plasma 2024 025 [facility]), [facility] [place], [address], 5 08:13:15 CBC w/ auto diff 2024 025 [facility]), [address] [place] [address], [address], 5 08:13:14 vitamin D, 25-hydroxy, total, serum 2024 025 [facility]), [address] [place] [address], [address], 5 08:13:17 TSH, ultra-sensi tive, serum 2024 025 [facility]), [address] [place] [address], [address], 5 08:13:17 Hepatitis C IgG Ab, qual, serum 2024 025 [facility]), [address] [place] [address], [address], 5 08:13:16 HIV 1 + 2, meaningful use set 2024 025 [facility]), [address] [place] [address], [address], 5 08:13:18 pap, LB 2022 023 [facility], [address], [place], [address], 3 16:38:27 Referral None recorded. Procedures None recorded. Surgeries None recorded. Imaging None recorded. Medication Orders Macrobid 100 mg capsule 2024 025 P[facility], [address] [place] [address], [id number], 5 12:53:04 Pyridium 100 mg tablet 2024 025 VIRGIL [employer] [facility], [address] [place] [address], [id number], 5 12:53:04 fluconazole 150 mg tablet 2024 025 VIRGIL [employer] [facility], [address] [place] [address], [id number], 5 12:53:01 ibuprofen 800 mg tablet 2024 025 VIRGIL [employer] [facility], [address] [place] [address], [id number], 5 12:53:02 pantoprazol e 40 mg tablet,monica yed release 2024 025 VIRGIL [employer] [facility], [address] [place] [address], [id number], 5 18:06:22 Anoro Ellipta 62.5 mcg-25 mcg/actuati on powder for inhalation 2024 025 [facility], [address] [place] [address], [id number], 5 17:18:55 Ventolin HFA 90 mcg/actuati on aerosol inhaler 2024 025 [facility], [address] [place] [address], [id number], 5 17:18:53 atorvastati n 40 mg tablet 2024 025 [facility], [address] [place] [address], [id number], 5 14:11:31 buspirone 10 mg tablet 2024 025 [facility], [address] [place] [address], [id number], 5 17:19:05 amlodipine 10 mg tablet 2024 025 [employer] [facility], [address] [place] [address], [id number], 5 15:18:15 metoprolol succinate ER 25 mg tablet,exte nded release 24 hr 2024 025 [employer] [facility], [address] [place] [address], [id number], 5 15:18:14 duloxetine 60 mg capsule,del ayed release 2024 025 VIRGIL [employer] [facility], [address] [place] [address], [id number], 5 15:15:53 quetiapine 50 mg tablet 2024 025 [employer] [facility], [address] [place] [address], [id number], 5 11:01:34 estradiol 2 mg tablet 2022 023 [facility], [address] [place] [address], [address], 3 13:55:34 Patient TargetsNo targets recorded. Patient Instructions Encounter Date Encounter Id Patient Instructions Last Modified By Organization Details Last Modified Time 12/05/2024 [id number] painful urinatio n (dysuria): care instructions [email or web address] Not available 12/05/2024 15:11:51 gastroesophageal reflux disease (GERD): care instructions [email or web address] Not available 12/05/2024 14:57:50 chronic obstruct anshul pulmonary disease (COPD): care instructions [email or web address] Not available 12/05/2024 14:57:49 learning about c opd and how to prevent lung infections Not available 12/05/2024 14:57:49 high cholesterol : care instructions [email or web address] Not available 12/05/2024 14:57:49 high blood press ure: care instructions [email or web address] Not available 12/05/2024 14:57:49 learning about h igh blood pressure [email or web address] Not available 12/05/2024 14:57:50 learning about m ood disorders Not available 12/05/2024 14:57:49 HIV testing: car e instructions [email or web address] Not available 12/05/2024 15:11:51 01/08/2025 [id number] painful urinatio n (dysuria): care instructions [email or web address] Not available 01/08/2025 09:31:41 Reason for Referral None Reported. Results Created Date Observation Date Name Description Value Unit Range Abnormal Flag Note LastModifiedBy Organization Detail LastModifiedTime 03/02/2003/06/2023 IMAGE -GUID ED PAP W/AGE BASED SCR TERRANCE COLS comment This order for age-b ased cervi angella cance r and STI scree berkley follo ws ACOG guide lines (PB 168, 140, FAQ07 1). See indiv idual assay s for perfo rming site locat ion. Not Available [facility] [place] [facility] [address] [place], [address], 03/06/2023 16:38:27 03/02/20 23 03/06/2023 IMAGE -GUID ED PAP W/AGE BASED SCR TERRANCE COLS clinical information: normal None given Not Available [facility] [place] [facility] [address] [place], [address], 03/06/2023 16:38:27 03/02/20 23 03/06/2023 IMAGE -GUID ED PAP W/AGE BASED SCR TERRANCE COLS LMP: normal NONE GIVEN Not Available [facility] [place] [facility] [address] [place], [address], 03/06/2023 16:38:27 03/02/20 23 03/06/2023 IMAGE -GUID ED PAP W/AGE BASED SCR TERRANCE COLS prev. Pap: normal NONE GIVEN Not Available [facility] [address] [place], [address], 03/06/2023 16:38:27 03/02/20 23 03/06/2023 IMAGE -GUID ED PAP W/AGE BASED SCR TERRANCE COLS prev. BX: normal NONE GIVEN Not Available [facility] [place] [facility] [address] [facility] [place], [address], 03/06/2023 16:38:27 03/02/20 23 03/06/2023 IMAGE -GUID ED PAP W/AGE BASED SCR TERRANCE COLS source: normal Vagin a, Cervi x, Endoc ervix Not Available [facility] [place] [facility] [address] [facility], [place], [address], 03/06/2023 16:38:27 03/02/20 23 03/06/2023 IMAGE -GUID ED PAP W/AGE BASED SCR TERRANCE COLS statement of adequacy: normal Satis facto ry for evalu ation . Endoc ervic al/tr ansfo rmati on zone compo nent prese nt. Age and/o r menst rual statu s not provi ded Not Available [facility] [place] [facility] [address] [place], [address], 03/06/2023 16:38:27 03/02/20 23 03/06/2023 IMAGE -GUID ED PAP W/AGE BASED SCR TERRANCE COLS general categorizati on: abnormal EPITH ELIAL CELL ABNOR MALIT Y Not Available [facility] [place] [facility] [address] [facility], [place], [address], 03/06/2023 16:38:27 03/02/20 23 03/06/2023 IMAGE -GUID ED PAP W/AGE BASED SCR TERRANCE COLS interpretati on/result: abnormal Atypi angella Squam ous Cells of Undet ermin ed Signi fican ce (ASC- [place]) Not Available [facility] [place] [facility] [address] [facility], [place], [address], 03/06/2023 16:38:27 03/02/20 23 03/06/2023 IMAGE -GUID ED PAP W/AGE BASED SCR TERRANCE COLS comment: normal This case could not be evalu ated with mateo blank techn ology . The slide was belén daily scree umm accor ding to luis fernando alvarado . Not Available [facility] [place] [address] [place], [address], 03/06/2023 16:38:27 03/02/20 23 03/06/2023 IMAGE -GUID ED PAP W/AGE BASED SCR TERRANCE COLS cytotechnolo gist: normal MSJ, CT( CP) CT Scree berkley locat ion: [facility] [place] [address] [facility] [place] [address] Not Available [facility] [place] [address] [facility], [place], [address], 03/06/2023 16:38:27 03/02/20 23 03/06/2023 IMAGE -GUID ED PAP W/AGE BASED SCR TERRANCE COLS pathologist: normal Kiran Larsen M.D., Board Certi fied in Anato prasanna and Clini angella Patho logy [phone] (elec troni c signa ture) Not Available [facility] [place] [facility] [address] [facility], [place], [address], 03/06/2023 16:38:27 03/02/20 23 03/06/2023 IMAGE -GUID ED PAP W/AGE BASED SCR TERRANCE COLS comment EXPLA NATOR Y NOTE: The Pap is a scree berkley test for cervi angella cance r. It is not a diagn ostic test and is subje ct to false negat anshul and false posit anshul resul ts. It is most relia ble when a satis facto ry sampl e, regul anderson obtai mum, is submi tted with relev ant clini angella findi ngs and histo ry, and when the Pap resul t is evalu ated along with histo meme and curre nt clini angella infor matio n. Not Available [facility] [place] [address] [facility], [place], [address], 03/06/2023 16:38:27 03/02/20 23 03/06/2023 IMAGE -GUID ED PAP W/AGE BASED SCR TERRANCE COLS HPV MRNA E6/E7 Not Detect ed not detect ed normal Metho dolog y: Trans cript ion-M ediat ed Ampli ficat ion This assay detec ts E6/E7 viral messe nger RNA (mRNA ) from 14 high- risk HPV types (16,1 8,31, 33,35 ,39,4 5,51, 52,56 ,58,5 9,66, 68). Cervi angella sourc es are requi red for HPV testi ng. If a vagin al sourc e from a patie nt who has had a total hyste recto my with remov al of cervi x was submi tted, pleas e conta ct the testi ng labor atory for alter nativ e testi ng optio ns. For addit ional infor andreas ramírez e refer to http: //[facility] balbir rivera.que stdia gnost ics.c om/fa q/FAQ 129v1 (This link if provi ded for infor oscar rivera/ educwei rodriguez l purpo ses only. ) Not Available [facility] [place] [facility] [address] [facility], [place], [address], 03/06/2023 16:38:27 12/06/19 25 12/06/2024 CBC WITH DIFFE RENTI AL/PL ATELE T WBC 5.3 x10e3 /uL 3.4-10 .8 normal Not Available [facility]) [address] [facility], [place], [address], 12/07/2024 08:13:14 12/06/19 25 12/06/2024 CBC WITH DIFFE RENTI AL/PL ATELE T RBC 3.79 x10e6 /uL 3.77-5 .28 normal Not Available [facility] ([facility]) [address] [facility], [place], [address], 12/07/2024 08:13:14 12/06/19 25 12/06/2024 CBC WITH DIFFE RENTI AL/PL ATELE T hemoglobin 12.8 g/dL 11.1-1 5.9 normal Not Available [facility] ([facility]) [address] [facility], [place], [address], 12/07/2024 08:13:14 12/06/19 25 12/06/2024 CBC WITH DIFFE RENTI AL/PL ATELE T hematocrit 38.7 % 34.0-4 6.6 normal Not Available [facility] ([facility]) [address] [facility], [place], [address], 12/07/2024 08:13:14 12/06/19 25 12/06/2024 CBC WITH DIFFE RENTI AL/PL ATELE T MCV 102 fL 79-97 above high normal Not Available [facility] ([facility]) [address] [facility], [place], [address], 12/07/2024 08:13:14 12/06/19 25 12/06/2024 CBC WITH DIFFE RENTI AL/PL ATELE T MCH 33.8 pg 26.6-3 3.0 above high normal Not Available [facility] ([facility]) [address] [place], [address], 12/07/2024 08:13:14 12/06/19 25 12/06/2024 CBC WITH DIFFE RENTI AL/PL ATELE T MCHC 33.1 g/dL 31.5-3 5.7 normal Not Available [facility] ([facility]) [address] [place], [address], 12/07/2024 08:13:14 12/06/19 25 12/06/2024 CBC WITH DIFFE RENTI AL/PL ATELE T RDW 13.2 % 11.7-1 5.4 Not Available [facility] ([facility]) [address] [facility], [place], [address], 12/07/2024 08:13:14 12/06/19 25 12/06/2024 CBC WITH DIFFE RENTI AL/PL ATELE T platelets 170 x10e3 /uL 150-45 0 normal Not Available [facility] ([facility]) [address] [facility], [place], [address], 12/07/2024 08:13:14 12/06/19 25 12/06/2024 CBC WITH DIFFE RENTI AL/PL ATELE T neutrophils 76 % not estab. normal Not Available [facility] ([facility]) [address] [facility], [place], [address], 12/07/2024 08:13:14 12/06/19 25 12/06/2024 CBC WITH DIFFE RENTI AL/PL ATELE T lymphs 19 % not estab. normal Not Available [facility] ([facility]) [address] [facility], [place], [address], 12/07/2024 08:13:14 12/06/19 25 12/06/2024 CBC WITH DIFFE RENTI AL/PL ATELE T monocytes 4 % not estab. normal Not Available [facility] ([facility]) [address] [facility], [place], [address], 12/07/2024 08:13:14 12/06/19 25 12/06/2024 CBC WITH DIFFE RENTI AL/PL ATELE T eos 1 % not estab. normal Not Available [facility] ([facility]) [address] [facility], [place], [address], 12/07/2024 08:13:14 12/06/19 25 12/06/2024 CBC WITH DIFFE RENTI AL/PL ATELE T basos 0 % not estab. normal Not Available [facility] ([facility]) [address] [facility], [place], [address], 12/07/2024 08:13:14 12/06/19 25 12/06/2024 CBC WITH DIFFE RENTI AL/PL ATELE T immature cells OFFICE CLERK Not Available [facility]) [address] [place], [address], 12/07/2024 08:13:14 12/06/19 25 12/06/2024 CBC WITH DIFFE RENTI AL/PL ATELE T neutrophils (absolute) 4.0 x10e3 /uL 1.4-7. 0 normal Not Available [facility] ([facility]) [address] [place], [address], 12/07/2024 08:13:14 12/06/19 25 12/06/2024 CBC WITH DIFFE RENTI AL/PL ATELE T lymphs (absolute) 1.0 x10e3 /uL 0.7-3. 1 normal Not Available [facility] ([facility]) [address] [place], [address], 12/07/2024 08:13:14 12/06/19 25 12/06/2024 CBC WITH DIFFE RENTI AL/PL ATELE T monocytes(ab solute) 0.2 x10e3 /uL 0.1-0. 9 normal Not Available [facility] ([facility]) [address] [place], [address], 12/07/2024 08:13:14 12/06/19 25 12/06/2024 CBC WITH DIFFE RENTI AL/PL ATELE T eos (absolute) 0.1 x10e3 /uL 0.0-0. 4 normal Not Available [facility] ([facility]) [address] [place], [address], 12/07/2024 08:13:14 12/06/19 25 12/06/2024 CBC WITH DIFFE RENTI AL/PL ATELE T baso (absolute) 0.0 x10e3 /uL 0.0-0. 2 normal Not Available [facility] ([facility]) [address] [facility], [place], [address], 12/07/2024 08:13:14 12/06/19 25 12/06/2024 CBC WITH DIFFE RENTI AL/PL ATELE T immature granulocytes 0 % not estab. Not Available [facility] ([facility]) [address] [facility], [place], [address], 12/07/2024 08:13:14 12/06/19 25 12/06/2024 CBC WITH DIFFE RENTI AL/PL ATELE T immature grans (abs) 0.0 x10e3 /uL 0.0-0. 1 Not Available [facility] ([facility]) [address] [facility], [place], [address], 12/07/2024 08:13:14 12/06/19 25 12/06/2024 CBC WITH DIFFE RENTI AL/PL ATELE T NRBC OFFICE CLERK Not Available [facility] ([facility]) [address] [facility], [place], [address], 12/07/2024 08:13:14 12/06/19 25 12/06/2024 CBC WITH DIFFE RENTI AL/PL ATELE T hematology comments: OFFICE CLERK Not Available [facility]) [address] [facility], [place], [address], 12/07/2024 08:13:14 12/06/19 25 12/06/2024 COMP. METAB OLIC PANEL (14) glucose 81 mg/dL 70-99 normal Not Available [facility] ([facility]) [address] [facility], [place], [address], 12/07/2024 08:13:15 12/06/19 25 12/06/2024 COMP. METAB OLIC PANEL (14) BUN 12 mg/dL 6-24 normal Not Available [facility] ([facility]) [address] [facility], [place], [address], 12/07/2024 08:13:15 03/06/20 25 12/06/2024 COMP. METAB OLIC PANEL (14) creatinine 0.80 mg/dL 0.57-1 .00 normal Not Available [facility] ([facility]) [address] [facility], [place], [address], 12/07/2024 08:13:15 12/06/19 25 12/06/2024 COMP. METAB OLIC PANEL (14) eGFR 88 mL/mi n/1.7 3 >59 normal Not Available [facility] ([facility]) [address] [facility], [place], [address], 12/07/2024 08:13:15 12/06/19 25 12/06/2024 COMP. METAB OLIC PANEL (14) BUN/creatini ne ratio 15 9-23 normal Not Available [facility]) [address] [facility], [place], [address], 12/07/2024 08:13:15 12/06/19 25 12/06/2024 COMP. METAB OLIC PANEL (14) sodium 138 mmol/ L 134-14 4 normal Not Available [facility] ([facility]) [address] [facility] [place], [address], 12/07/2024 08:13:15 12/06/19 25 12/06/2024 COMP. METAB OLIC PANEL (14) potassium 3.9 mmol/ L 3.5-5. 2 normal Not Available [facility] ([facility]) [address] [facility], [place], [address], 12/07/2024 08:13:15 12/06/19 25 12/06/2024 COMP. METAB OLIC PANEL (14) chloride 104 mmol/ L 96-106 normal Not Available [facility] ([facility]) [address] [facility], [place], [address], 12/07/2024 08:13:15 12/06/19 25 12/06/2024 COMP. METAB OLIC PANEL (14) carbon dioxide, total 22 mmol/ L 20-29 normal Not Available [facility] ([facility]) [address] [place] [place], [address], 12/07/2024 08:13:15 12/06/19 25 12/06/2024 COMP. METAB OLIC PANEL (14) calcium 8.9 mg/dL 8.7-10 .2 normal Not Available [facility] ([facility]) [address] [facility] [place], [address], 12/07/2024 08:13:15 12/06/19 25 12/06/2024 COMP. METAB OLIC PANEL (14) protein, total 6.8 g/dL 6.0-8. 5 normal Not Available [facility] ([facility]) [address] [place], [address], 12/07/2024 08:13:15 12/06/19 25 12/06/2024 COMP. METAB OLIC PANEL (14) albumin 4.2 g/dL 3.8-4. 9 normal Not Available [facility] ([facility]) [address] [facility] [place], [address], 12/07/2024 08:13:15 12/06/19 25 12/06/2024 COMP. METAB OLIC PANEL (14) globulin, total 2.6 g/dL 1.5-4. 5 Not Available [facility] ([facility]) [address] [facility] [place], [address], 12/07/2024 08:13:15 12/06/19 25 12/06/2024 COMP. METAB OLIC PANEL (14) bilirubin, total <0.2 mg/dL 0.0-1. 2 Not Available [facility] ([facility]) [address] [facility] [place], [address], 12/07/2024 08:13:15 12/06/19 25 12/06/2024 COMP. METAB OLIC PANEL (14) alkaline phosphatase 84 IU/L 44-121 normal Not Available [facility]) [address] [place], [address], 12/07/2024 08:13:15 12/06/19 25 12/06/2024 COMP. METAB OLIC PANEL (14) AST (SGOT) 18 IU/L 0-40 normal Not Available [facility] ([facility]) [address] [place], [address], 12/07/2024 08:13:15 12/06/19 25 12/06/2024 COMP. METAB OLIC PANEL (14) ALT (SGPT) 11 IU/L 0-32 normal Not Available [facility] ([facility]) [address] [place], [address], 12/07/2024 08:13:15 12/06/19 25 12/06/2024 LIPID PANEL cholesterol, total 170 mg/dL 100-19 9 normal Not Available [facility] ([facility]) [address] [place], [address], 12/07/2024 08:13:16 12/06/19 25 12/06/2024 LIPID PANEL triglyceride s 203 mg/dL 0-149 above high normal Not Available [facility] ([facility]) [address] [place], [address], 12/07/2024 08:13:16 12/06/19 25 12/06/2024 LIPID PANEL HDL cholesterol 60 mg/dL >39 normal Not Available [facility]) [address] [place], [address], 12/07/2024 08:13:16 12/06/19 25 12/06/2024 LIPID PANEL VLDL cholesterol angella 33 mg/dL 5-40 Not Available [facility] ([facility]) [address] [place], [address], 12/07/2024 08:13:16 12/06/19 25 12/06/2024 LIPID PANEL LDL chol calc ([facility]) 77 mg/dL 0-99 Not Available [facility]) [address] [facility], [place], [address], 12/07/2024 08:13:16 12/06/19 25 12/06/2024 LIPID PANEL LDL calc comment: OFFICE CLERK Not Available [facility] ([facility]) [address] [facility], [place], [address], 12/07/2024 08:13:16 12/06/19 25 12/06/2024 HCV ANTIB HANY CASCA DE(PC R/GEN O) HCV Ab Non Reacti ve non reacti ve Not Available [facility] ([facility]) [address] [facility], [place], [address], 12/07/2024 08:13:16 12/06/1912/06/2024 HCV ANTIB HANY CASCA DE(PC R/GEN O) interpretati on: Commen t Not infec sanjuana with HCV unles s early or acute infec tion is suspe cted (whic h may be delay ed in an immun ocomp romis ed indiv idual ), or other evide nce exist s to indic ate HCV infec tion. Not Available [facility] ([facility]) [address] [facility], [place], [address], 12/07/2024 08:13:16 12/06/1912/06/2024 TSH TSH 2.720 uIU/m L 0.450- 4.500 normal Not Available [facility] ([facility]) [address] [facility], [place], [address], 12/07/2024 08:13:17 12/06/1912/06/2024 VITAM IN D, 25-HY DROXY vitamin D, 25-hydroxy 27.0 NG/mL 30.0-1 00.0 below low normal Vitam in D defic iency has been defin ed by the Insti tute of Medic ine and an Endoc rine Socie ty pract ice guide line as a level of serum 25-OH vitam in D less than 20 ng/mL (1,2) . The Endoc rine Socie ty went on to furth er defin e vitam in D insuf ficie ncy as a level betwe en 21 and 29 ng/mL (2). 1. IOM (Inst itute of Medic ine). 2010. Dieta ry refer ence intak es for calci um and D. Meg mays [place]: The Natio nal [facility] Press . 2. Holic k MF, Markie cosme [place], Bisch off-F errar i CHU, et al. Evalu ation , treat ment, and preve ntion of vitam in D defic iency : an Endoc rine Socie ty clini angella pract ice guide line. JCEM. 2010; 96(7) :1911 -30. Not Available [facility] ([facility]) [address] [facility], [place], [address], 12/07/2024 08:13:17 12/06/19 25 12/06/2024 HIV AB/P2 4 AG WITH REFLE X HIV Ab/P24 Ag screen Non Reacti ve non reacti ve HIV Negat anshul HIV-1 /HIV- 2 antib odies and HIV-1 p24 antig en were NOT detec sanjuana. There is no labor atory evide nce of HIV infec tion. Not Available [facility] ([facility]) [address] [facility], [place], [address], 12/07/2024 08:13:18 12/06/19 25 12/07/2024 URINE CULTU RE, ROUTI NE urine culture, routine Final report abnormal Not Available [facility] ([facility]) [address] [facility], [place], [address], 12/07/2024 08:13:18 12/06/19 25 12/07/2024 URINE CULTU RE, ROUTI NE result 1 COMMEN T abnormal Beta hemol ytic Strep tococ cus, group B Penic illin and ampic illin are drugs of choic e for treat ment of beta- hemol ytic strep tococ angella infec tions . Susce ptibi lity testi ng of penic illin s and other beta- lacta m agent s appro nghia by the FDA for treat ment of beta- hemol ytic strep tococ angella infec tions need not be perfo rmed routi faustino becau se nonsu scept ible isola rufus are extre rod rare in any beta- hemol ytic strep tococ cus and have not been repor sanjuana for Strep tococ cus pyoge romi (grou p A). (CLSI ) 10,00 0-25, 000 colon y formi ng units per mL Not Available [facility] ([facility]) [address] [facility], [place], [address], 12/07/2024 08:13:18 12/06/19 25 12/05/2024 urina lysis , dipst ick Leukocytes Trace Not Available [address], [address], 12/05/2024 15:04:29 12/06/19 25 12/05/2024 urina lysis , dipst ick Nitrite negati ve Not Available [facility] [address] [place] [address], [phone], 12/05/2024 15:04:29 12/06/19 25 12/05/2024 urina lysis , dipst ick Urobilinogen .2 Not Available [facility] [address] [place] [address], [phone], 12/05/2024 15:04:29 12/06/19 25 12/05/2024 urina lysis , dipst ick Protein 30 Not Available [facility] [address] [place] [address], [phone], 12/05/2024 15:04:29 12/06/19 25 12/05/2024 urina lysis , dipst ick pH 7.0 Not Available [address], [place], [address], 12/05/2024 15:04:29 12/06/19 25 12/05/2024 urina lysis , dipst ick Blood Negati ve Not Available [address], [place], [address], 12/05/2024 15:04:29 12/06/19 25 12/05/2024 urina lysis , dipst ick Specific [place] 1.020 Not Available [address], [place], [address], 12/05/2024 15:04:29 12/06/19 25 12/05/2024 urina lysis , dipst ick Ketone Negati ve Not Available [address], [place], [address], 12/05/2024 15:04:29 12/06/19 25 12/05/2024 urina lysis , dipst ick Bilirubin Negati ve Not Available [address], [place], [address], 12/05/2024 15:04:29 12/06/19 25 12/05/2024 urina lysis , dipst ick Glucose Negati ve Not Available [address], [place], [address], 12/05/2024 15:04:29 12/06/19 25 12/05/2024 urina lysis , dipst ick Appearance Slight ly Cloudy Not Available [address], [address], 12/05/2024 15:04:29 12/06/19 25 12/05/2024 urina lysis , dipst ick Color Dark Yellow Not Available [facility] [address] [facility], [place], [address], 12/05/2024 15:04:29 01/09/20 25 01/10/2025 URINE CULTU RE, LUIS FERNANDO NE urine culture, routine Final report abnormal Not Available [facility] ([facility]) [address] [facility], [place], [address], 01/10/2025 07:32:39 01/09/20 25 01/10/2025 URINE CULTU RELUIS FERNANDO NE result 1 COMMEN T abnormal Beta hemol ytic Strep tococ cus, group B 25,00 0-50, 000 colon y formi ng units per mL Penic illin and ampic illin are drugs of choic e for treat ment of beta- hemol ytic strep tococ angella infec tions . Susce ptibi lity testi ng of penic illin s and other beta- lacta m agent s appro nghia by the FDA for treat ment of beta- hemol ytic strep tococ angella infec tions need not be perfo rmed luis fernando peralta se nonsu scept ible isola rufus are extre rod rare in any beta- hemol ytic strep tococ cus and have not been repor sanjuana for Strep tococ cus pyoge romi (grou p A). (CLSI ) Not Available [facility] ([facility]) [address] [facility], [place], [address], 01/10/2025 07:32:39 01/09/20 25 01/08/2025 urina lysis , dipst ick Leukocytes Large Not Available [facility] [address] [facility], [place], [address], 01/08/2025 09:17:49 01/09/20 25 01/08/2025 urina lysis , dipst ick Nitrite positi ve Not Available [facility] [address] [facility], [place], [address], 01/08/2025 09:17:49 01/09/2001/08/2025 urina lysis , dipst ick Urobilinogen 1 Not Available [address], [place], [address], 01/08/2025 09:17:49 01/09/20 25 01/08/2025 urina lysis , dipst ick Protein 30 Not Available [address], [place], [address], 01/08/2025 09:17:49 01/09/2001/08/2025 urina lysis , dipst ick pH 7.0 Not Available [address], [place], [address], 01/08/2025 09:17:49 01/09/20 25 01/08/2025 urina lysis , dipst ick Blood Negati ve Not Available [address], [place], [address], 01/08/2025 09:17:49 01/09/2001/08/2025 urina lysis , dipst ick Specific [place] 1.015 Not Available [address], [place], [address], 01/08/2025 09:17:49 01/09/2001/08/2025 urina lysis , dipst ick Ketone Negati ve Not Available [address], [place], [address], 01/08/2025 09:17:49 01/09/20 25 01/08/2025 urina lysis , dipst ick Bilirubin Negati ve Not Available [address], [address], 01/08/2025 09:17:49 01/09/20 25 01/08/2025 urina lysis , dipst ick Glucose Negati ve Not Available [address], [address], 01/08/2025 09:17:49 01/09/20 25 01/08/2025 urina lysis , dipst ick Appearance Cloudy Not Available [address], [address], 01/08/2025 09:17:49 01/09/20 25 01/08/2025 urina lysis , dipst ick Color Dark Yellow Not Available [address], [address], 01/08/2025 09:17:49 Result Notes None recorded. Problems Name Problem SNOMED Code Status Onset Date Resolution Date Notes Provider Name and Address Organization Details Recorded Time Right lower quadrant pain [id number] Completed 201512/04/2015 Problem Code: R10.31; Problem Code Type: ICD-10; Not Available [facility] 22:41:18 Kidney stone 35256869 Completed 201608/03/2020 Problem Code: N20.0; Problem Code Type: ICD-10; Not Available [facility] 2 22:41:17 Dysuria 36114846 Completed 201601/21/2017 Problem Code: R30.0; Problem Code Type: ICD-10; CHAPITO Marmolejo [address] [place] [address], [address] , [facility] [employer] 5 12:33:04 Benign essentia l microsco pic hematuri a [id number] 9109 Completed 201608/03/2020 Problem Code: R31.1; Problem Code Type: ICD-10; CHAPITO Marmolejo [address] [place], [address] , [employer] 5 12:31:42 Microsco pic hematuri a 212971728 Completed 201603/25/2021 Problem Code: 599.72; Problem Code Type: ICD-9; CHAPITO Marmolejo [address] [place], [address] , [employer] 5 12:34:41 Right lower quadrant pain 721569223 Completed 201601/30/2017 Problem Code: R10.31; Problem Code Type: ICD-10; Not Available [facility] 22:41:18 Pain of left hip joint [id number] 9100 Completed 201608/03/2020 Problem Code: M25.552; Problem Code Type: ICD-10; Not Available [facility] 2 22:41:17 Pain of hip region 83257161 Completed 201603/25/2021 Problem Code: 719.45; Problem Code Type: ICD-9; Not Available [facility] 2 22:41:24 Allergic rhinitis caused by animal dander 060539042 Completed 201608/15/2017 Problem Code: J30.81; Problem Code Type: ICD-10; Not Available [facility] 2 22:41:17 Allergic rhinitis caused by pollen 44786323 Completed 201608/15/2017 Problem Code: 477.0; Problem Code Type: ICD-9; Not Available [facility] 2 22:41:24 Acute sinusiti s 92138846 Completed 201608/16/2017 Problem Code: J01.90; Problem Code Type: ICD-10; Not Available [facility] 2 22:41:16 Acute pansinus itis 7038775 Completed 201610/13/2017 Problem Code: J01.40; Problem Code Type: ICD-10; Not Available [facility] 2 22:41:16 Recurren t acute sinusiti s 007732605 Completed 201610/13/2017 Problem Code: J01.81; Problem Code Type: ICD-10; Not Available [facility] 22:41:16 Cough 12728661 Completed 201608/28/2017 Problem Code: R05; Problem Code Type: ICD-10; Not Available [facility] 2 22:41:18 Acute sinusiti s 42036578 Completed 201610/13/2017 Problem Code: 461.8; Problem Code Type: ICD-9; Not Available [facility] 2 22:41:24 Acute sinusiti s 78612729 Completed 201705/24/2018 Problem Code: J01.90; Problem Code Type: ICD-10; Not Available [facility] 2 22:41:16 Gynecolo gic examinat ion Completed 201812/10/2024 Problem Code: Z01.411; Problem Code Type: ICD-10; CHAPITO Marmolejo [address] [place] [address], [address] , [employer] 12:34:29 Residual hemorrho idal skin tags 94068442 Completed 201808/03/2020 Problem Code: K64.4; Problem Code Type: ICD-10; Not Available [facility] 22:41:17 Dysuria 39501736 Completed 201812/10/2024 Problem Code: R30.0; Problem Code Type: ICD-10; CHAPITO Marmolejo [address] [place] [address], [address] , [employer] 5 12:33:04 Benign essentia l microsco pic hematuri a [id number] 9109 Completed 201812/10/2024 Problem Code: R31.1; Problem Code Type: ICD-10; CHAPITO Marmolejo [address] [place] [address], [address] , [employer] 12:31:42 Generali zed edema 025998764 Completed 201808/03/2020 Problem Code: R60.1; Problem Code Type: ICD-10; Not Available [facility] 2 22:41:20 Microsco pic hematuri a 058423376 Completed 201812/10/2024 Problem Code: R31.29; Problem Code Type: ICD-10; CHAPITO Marmolejo [address] [place] [address], [address] , [employer] 5 12:34:41 Gynecolo gic examinat ion Completed 201908/03/2020 Problem Code: Z01.411; Problem Code Type: ICD-10; CHAPITO Marmolejo [address] [place] [address], [address] , [employer] 5 12:34:29 Acute sinusiti s 23629480 Completed 201909/18/2020 Problem Code: J01.90; Problem Code Type: ICD-10; Not Available [facility] 2 22:41:16 Body mass index 20-24 - normal 055579598 Active 2019 Not Available [facility] 2 22:41:22 Increase d frequenc y of urinatio n 795878069 Completed 201912/10/2020 Problem Code: R35.0; Problem Code Type: ICD-10; Not Available [facility] 2 22:41:19 Dysuria 42074197 Completed 201912/10/2020 Problem Code: R30.0; Problem Code Type: ICD-10; CHAPITO Marmolejo [address] [place] [address], [address] , [employer] 5 12:33:04 Dyspareu brenna 67875441 Completed 202012/10/2024 CHAPITO Marmolejo [address] [place] [address], [address] , [employer] 5 12:33:57 Pelvic and perineal pain 418772442 Completed 202003/25/2021 Problem Code: R10.2; Problem Code Type: ICD-10; Not Available [facility] 22:41:18 Otogenic otalgia 36004287 Completed 202003/25/2021 Not Available [facility] 22:41:16 Body mass index 20-24 - normal 313914584 Completed 202003/25/2021 Not Available [facility] 22:41:23 Gynecolo gic examinat ion Completed 202003/25/2021 Problem Code: Z01.411; Problem Code Type: ICD-10; CHAPITO Marmolejo [address] [place] [address], [address] , [employer] 12:34:29 Breast neoplasm screenin g status 046167150 Completed 202012/10/2024 Problem Code: Z12.39; Problem Code Type: ICD-10; CHAPITO Marmolejo [address] [place] [address], [address] , [employer] 12:33:01 Normal weight 47221633 Active 2020 Not Available [facility] 22:41:27 Acute sinusiti s 17425530 Active 2020 Problem Code: J01.90; Problem Code Type: ICD-10; Not Available [facility] 22:41:16 Otogenic otalgia 21654562 Completed 202009/27/2021 Not Available [facility] 22:41:16 Allergic rhinitis 05069806 Completed 202009/27/2021 Problem Code: J30.9; Problem Code Type: ICD-10; Not Available [facility] 22:41:17 Acute sinusiti s 39960825 Completed 202009/27/2021 Problem Code: J01.90; Problem Code Type: ICD-10; Not Available [facility] 22:41:22 Finding of body mass index 774481367 Completed 202009/27/2021 Problem Code: Z68.1; Problem Code Type: ICD-10; CHAPITO Marmolejo [address] [place] [address], [address] , [employer] 5 12:34:32 Disorder of upper respirat ory system 995698570 Completed 202012/10/2024 Problem Code: J06.9; Problem Code Type: ICD-10; CHAPITO Marmolejo [address] [place] [address], [address] , [employer] 5 12:34:00 Cough 67658375 Completed 202009/27/2021 Problem Code: R05; Problem Code Type: ICD-10; Not Available [facility] 22:41:18 Contusio n of upper limb 61142306 Completed 202012/10/2024 CHAPITO Marmolejo [address] [place] [address], [address] , [employer] 5 12:33:48 Fall on or from stairs or steps Completed 202010/29/2021 Not Available [facility] 22:41:20 COVID-19 663885212 Completed 202112/10/2024 Problem Code: U07.1; Problem Code Type: ICD-10; CHAPITO Marmolejo [address] [place] [address], [address] , [employer] 5 12:33:52 Nicotine dependen ce 32377315 Active 2021 Problem Code: F17.200; Problem Code Type: ICD-10; Not Available [facility] 2 22:41:15 Otogenic otalgia 39718288 Active 2021 Not Available [facility] 2 22:41:16 Acute pharyngi tis 297491567 Active 2021 Not Available [facility] 2 22:41:17 Finding of body mass index 184390522 Completed 202112/10/2024 Problem Code: Z68.1; Problem Code Type: ICD-10; CHAPITO Marmolejo [address] [place] [address], [address] , [employer] 5 12:34:32 Menopaus al symptom 82762400 Active 2022 Russell Dugan II, MD [address] [place] [address], [address] , [employer] 3 16:23:58 Chronic obstruct anshul pulmonar y disease 98084031 Active 2024 CHAPITO Marmolejo [address] [place] [address], [address] , [employer] 5 12:34:46 Essentia l hyperten dariela 84529037 Active 2024 CHAPITO Marmolejo [address] [place] [address], [address] , [employer] 5 12:34:51 Hyperlip idemia 43388010 Active 2024 CHAPITO Marmolejo [address] [place] [address], [address] , [employer] 5 12:35:00 Generali zed anxiety disorder 64433953 Active 2024 CHAPITO Marmolejo [address] [place] [address], [address] , [employer] 5 12:34:56 Depressi ve disorder 75378948 Active 2024 CHAPITO Marmolejo [address] [place] [address], [address] , [employer] 5 12:34:49 Gastroes ophageal reflux disease 009273861 Active 2024 CHAPITO Marmolejo [address] [place] [address], [address] , [employer] 5 12:34:54 Acute urinary tract infectio n 072523865 Active 2024 CHAPITO Marmolejo [address] [place] [address], [address] , [employer] 09:49:55 Vitamin D deficien cy 94855907 Active 2024 CHAPITO Marmolejo [address] [place] [address], [address] [place] [address] , [employer] 09:49:59 Wasp sting 973837994 Active 2024 CHAPITO Marmolejo [address] [place] [address], [address] [place] [address] , [employer] 14:02:26 Nausea 956910662 Active 2024 CHAPITO Marmolejo [address] [place] [address], [address] [place] [address] , [employer] 14:16:38 Notes:*Problem Name: Abdomin al and pelvic pain *Problem Status: Acute *Comments: *Problem Code: R10 *Problem Code Type: ICD-10 *Note Date: 09/18/2020 Problem Notes None recorded. Procedures Surgical History Date Name Laterality Status Provider Name and Address Organization Details Recorded Time 03/08/20 22 Most Recent Mammogram completed [employer] 12/05/2024 14:28:40 01/31/20 17 Laparoscopy remove adnexa completed Not Available [facility] 06/07/2022 22:56:05 10/05/19 16 hysterectomy completed Not Available [facility] 022 22:56:05 10/05/19 16 ligation of bilateral fallopian tubes completed Not Available [facility] 06/07/2022 22:56:05 Colposcopy completed Sonia [employer] [facility] [employer] 12/05/2024 14:28:41 Hysterectomy completed Sonia O[facility]one [facility] [employer] 12/05/2024 14:28:41 Orthopedic Surgery completed Sonia [employer] 12/05/2024 14:28:41 Other completed Sonia [employer]. 12/05/2024 14:28:41 Total Hysterectomy completed Soniacarlos manuel [employer] 12/05/2024 14:28:41 Imaging Results None recorded. Procedure Notes None recorded. Medical Equipment None Reported. Allergies Allergen ID Allergen Name Allergen Category Reaction Reaction Severity Criticality Documentation Date Start Date Code Code System Note Provider Name and Address Organization Details Recorded Time 33388 aspirin medicatio n anaphylax is Not available Not available 06/07/2022 1191 RxNorm Not Available [facility] 2 22:56:45 35699 morphine sulfate medicatio n anaphylax is Not available Not available 06/07/2022 65496 RxNorm Not Available [facility] 2 22:56:45 85522 acetamino phen / oxycodone medicatio n Not available Not available Not available 06/07/2022 55531 3 RxNorm Miriam lquue [employer] 3 13:36:50 Medications Name Sig Start Date Stop Date Status Note LastModified by Organization Details LastModified Time losartan 50 mg tablet TAKE 1 TABLET BY MOUTH ONCE DAILY FOR HIGH BLOOD PRESSURE 12/05 completed Not Available Not Available Not Available quetiapine 25 mg tablet TAKE 1 AND 1/2 TABLETS 1 TIME EACH DAY AT BEDTIME 12/30 completed Not Available Not Available Not Available celecoxib 200 mg capsule TAKE 1 CAPSULE BY MOUTH ONCE DAILY NEEDED FOR PAIN 03/02 completed Not Available Not Available Not Available amoxicillin 500 mg capsule TAKE 1 CAPSULE EVERY 12 HOURS FOR 10 DAYS active Not Available Not Available No t Available furosemide 40 mg tablet TAKE 1 TABLET BY MOUTH ONCE DAILY 12/05 completed Not Available Not Available Not Available atorvastati n 40 mg tablet TAKE 1 TABLET 1 TIME EACH DAY 2024 active Not Available Not Available Not Avai lable promethazin e-DM 6.25 mg-15 mg/5 mL oral syrup Take 1 teaspoonf ul by mouth every 6 hours as needed. 10/13 completed Not Available Not Available Not Available prednisone 10 mg tablet take 1 tablet (10 mg) by oral route 3 times per day x3 days 03/02 completed Not Available Not Available Not Available Carafate 100 mg/mL oral suspension SWISH & SWALLOW 10 ML BY MOUTH 4 TIMES DAILY USE AFTER FOOD/DRIN K. 12/05 completed Not Available Not Available Not Available ibuprofen 800 mg tablet TAKE 1 TABLET BY MOUTH EVERY 8 HOURS NEEDED FOR PAIN active Not Available Not Available No t Available fluconazole 150 mg tablet TAKE 1 TABLET BY MOUTH ONCE DAILY MAY REPEAT SECOND DOSE IN 72 HOURS AFTER FIRST DOSE IF SYMPTOMS PERSIST active Not Available Not Available No t Available benzonatate 200 mg capsule take 1 capsule (200 mg) by oral route 3 times per day PRN cough 09/27 completed Not Available Not Available Not Available hydrocodone 5 mg-acetamin ophen 325 mg tablet TAKE 1 TABLET BY MOUTH EVERY 6 HOURS NEEDED FOR SEVERE PAIN 12/05 completed Not Available Not Available Not Available FreeStyle Lancets 28 gauge 12/05 completed Not Available Not Available Not Available phenazopyri dine 200 mg tablet 12/05 completed Not Available Not Available Not Available prednisone 20 mg tablet take 1 tablet (20 mg) by oral route 3 times per day x3 days 03/29 completed Not Available Not Available Not Available prednisone 5 mg tablet 7pills po today and decrease by one q day 07/14 completed Not Available Not Available Not Available metronidazo le 500 mg tablet TAKE 1 TABLET BY MOUTH THREE TIMES DAILY FOR 10 DAYS 12/05 completed Not Available Not Available Not Available acetaminoph en 300 mg-codeine 30 mg tablet TAKE 1 TABLET BY MOUTH TWICE DAILY NEEDED FOR PAIN 03/02 completed Not Available Not Available Not Available clopidogrel 75 mg tablet TAKE 1 TABLET BY MOUTH ONCE DAILY 03/02 completed Not Available Not Available Not Available dextrometho rphan-guaif enesin 10 mg-100 mg/5 mL oral syrup Take 1 teaspoon by mouth q4h prn for cough 07/09 completed Not Available Not Available Not Available amlodipine 5 mg tablet TAKE 1 TABLET BY MOUTH ONCE DAILY 03/02 completed Not Available Not Available Not Available ciprofloxac in 500 mg tablet TAKE 1 TABLET BY MOUTH EVERY 12 HOURS FOR 5 DAYS active Not Available Not Available No t Available sulfamethox azole 800 mg-trimetho prim 160 mg tablet TAKE 1 TABLET BY MOUTH TWICE DAILY FOR URINARY TRACT INFECTION 03/02 completed Not Available Not Available Not Available tramadol 50 mg tablet TAKE 1 TABLET BY MOUTH AT NIGHT NEEDED FOR SEVERE PAIN FOR UP TO 30 DOSES 12/05 completed Not Available Not Available Not Available quetiapine 100 mg tablet TAKE 1 TABLET 1 TIME EACH DAY AT BEDTIME active Not Available Not Available No t Available spironolact one 25 mg tablet TAKE 1 TABLET BY MOUTH ONCE DAILY 03/02 completed Not Available Not Available Not Available meloxicam 7.5 mg tablet TAKE 1 TABLET BY MOUTH ONCE DAILY 12/05 completed Not Available Not Available Not Available oxycodone-a cetaminophe n 5 mg-325 mg tablet TAKE 1 TABLET BY MOUTH EVERY 6 HOURS NEEDED FOR SEVERE PAIN FOR UP TO 3 DAYS 12/05 completed Not Available Not Available Not Available amoxicillin 875 mg tablet TAKE 1 TABLET EVERY 12 HOURS FOR 10 DAYS active Not Available Not Available No t Available magnesium oxide 400 mg (241.3 mg magnesium) tablet TAKE 1 TABLET BY MOUTH ONCE DAILY 12/05 completed Not Available Not Available Not Available estradiol 1 mg tablet TAKE 1 TABLET BY MOUTH ONCE DAILY 03/02 completed Not Available Not Available Not Available Lidoderm 5 % topical patch APPLY ONE PATCH TOPICALLY TO MOST PAINFUL AREA AND LEAVE ON UP TO 12 HOURS, THEN LEAVE OFF AT LEAST 12 HOURS 12/05 completed Not Available Not Available Not Available phenazopyri dine 100 mg tablet TAKE 1 TABLET BY MOUTH AFTER MEALS NEEDED FOR PAIN FOR 6 DOSES active Not Available Not Available No t Available amlodipine 10 mg tablet TAKE 1 TABLET 1 TIME EACH DAY FOR BLOOD PRESSURE 2024 active Not Available Not Available Not Avai lable doxycycline monohydrate 100 mg capsule Take 1 po every 12 hours x 10 days 10/13 completed Not Available Not Available Not Available Lasix 20 mg tablet Take 1 tablet(s) by mouth daily 02/02 completed Not Available Not Available Not Available cephalexin 500 mg capsule TAKE 1 CAPSULE BY MOUTH 4 TIMES DAILY FOR 10 DAYS 12/05 completed Not Available Not Available Not Available pantoprazol e 40 mg tablet,monica yed release TAKE 1 TABLET 1 TIME EACH DAY FOR HEARTBURN 2024 active Not Available Not Available Not Avai lable buspirone 10 mg tablet TAKE 1 TABLET 2 TIMES EACH DAY active Not Available Not Available No t Available lisinopril 10 mg tablet Take 1 tablet(s) by mouth daily 05/10 completed Not Available Not Available Not Available losartan 25 mg tablet TAKE 1 TABLET BY MOUTH ONCE DAILY 03/02 completed Not Available Not Available Not Available ibuprofen 400 mg tablet TAKE 1 TABLET BY MOUTH EVERY 8 HOURS NEEDED FOR PAIN 12/05 completed Not Available Not Available Not Available nitroglycer in 0.4 mg sublingual tablet DISSOLVE ONE TABLET UNDER THE TONGUE EVERY 5 MINUTES NEEDED FOR CHEST PAIN. DO NOT EXCEED A TOTAL OF 3 DOSES IN 15 MINUTES active Not Available Not Available No t Available estradiol 2 mg tablet TAKE 1 TABLET BY MOUTH ONCE DAILY. APPOINTME NT REQUIRED FOR FUTURE REFILLS. NO MORE. active Not Available Not Available No t Available etodolac 400 mg tablet one po bid 08/17 completed Not Available Not Available Not Available lisinopril 5 mg tablet TAKE 2.5 MG BY MOUTH ONCE DAILY FOR HYPERTENS ION 12/05 completed Not Available Not Available Not Available metoprolol succinate ER 25 mg tablet,exte nded release 24 hr TAKE 1 TABLET 1 TIME EACH DAY FPR BLOOD PRESSURE 2024 active Not Available Not Available Not Avai lable epinephrine 0.3 mg/0.3 mL injection, auto-inject or INJECT THE CONTENTS OF ONE SYRNIGE DIRECTED FOR SEVERE ALLERGIC REACTION active Not Available Not Available No t Available levofloxaci n 500 mg tablet TAKE 1 TABLET BY MOUTH ONCE DAILY 03/02 completed Not Available Not Available Not Available oxycodone-a cetaminophe n 7.5 mg-325 mg tablet TAKE 1 TABLET BY MOUTH EVERY 4 HOURS NEEDED FOR PAIN FOR 3 DAYS . DO NOT EXCEED 4 PER 24 HOURS 12/05 completed Not Available Not Available Not Available estradiol 0.01% (0.1 mg/gram) vaginal cream insert 1 gram by vaginal route 3 times per week 02/03 completed Not Available Not Available Not Available Vitamin D2 1,250 mcg (50,000 unit) capsule TAKE 1 CAPSULE 1 TIME EACH WEEK active Not Available Not Available No t Available ondansetron 4 mg disintegrat ing tablet PLACE 1 TABLET UNDER THE TONGUE AND ALLOW TO DISSOLVE 2 TIMES EACH DAY FOR 5 DAYS active Not Available Not Available No t Available cefdinir 300 mg capsule TAKE 1 CAPSULE 2 TIMES EACH DAY FOR 10 DAYS 12/05 completed Not Available Not Available Not Available losartan 100 mg tablet 12/05 completed Not Available Not Available Not Available fluticasone propionate 50 mcg/actuati on nasal spray,suspe nsion 1 spray(s) each nostril daily. 12/12 completed Not Available Not Available Not Available loratadine 10 mg tablet take 1 tablet (10 mg) by oral route once daily 03/29 completed Not Available Not Available Not Available amoxicillin 875 mg-potassiu m clavulanate 125 mg tablet TAKE 1 TABLET BY MOUTH TWICE DAILY 03/02 completed Not Available Not Available Not Available amoxicillin 500 mg-potassiu m clavulanate 125 mg tablet take 1 tablet by oral route every 12 hours 08/11 completed Not Available Not Available Not Available Ventolin HFA 90 mcg/actuati on aerosol inhaler INHALE 2 PUFFS EVERY 4 HOURS NEEDED FOR SHORTNESS OF BREATH/ WHEZING active Not Available Not Available No t Available oxycodone 5 mg tablet TAKE 1 TABLET BY MOUTH EVERY 6 HOURS NEEDED FOR SEVERE PAIN 12/05 completed Not Available Not Available Not Available azithromyci n 500 mg tablet TAKE 1 TABLET BY MOUTH ONCE DAILY FOR 7 DAYS 03/02 completed Not Available Not Available Not Available bupropion HCl XL 150 mg 24 hr tablet, extended release TAKE 1 TABLET BY MOUTH ONCE DAILY 03/02 completed Not Available Not Available Not Available metoprolol tartrate 25 mg tablet TAKE 1 TABLET BY MOUTH TWICE DAILY FOR HIGH BLOOD PRESSURE 12/05 completed Not Available Not Available Not Available nitrofurant oin monohydrate /macrocryst als 100 mg capsule TAKE 1 CAPSULE EVERY 12 HOURS FOR 7 DAYS active Not Available Not Available No t Available duloxetine 60 mg capsule,del ayed release TAKE 1 CAPSULE 1 TIME EACH DAY FOR DEPRESSIO N 2024 active Not Available Not Available Not Avai lable ranolazine ER 500 mg tablet,exte nded release,12 hr TAKE 1 TABLET BY MOUTH TWICE DAILY 12/05 completed Not Available Not Available Not Available quetiapine 50 mg tablet Take 1.5 tablets every day by oral route at bedtime for 90 days. 12/30 completed Not Available Not Available Not Available hydrochloro thiazide 12.5 mg tablet 12/05 completed Not Available Not Available Not Available FeroSul 325 mg (65 mg iron) tablet TAKE 1 TABLET BY MOUTH TWICE DAILY 12/05 completed Not Available Not Available Not Available diclofenac 1 % topical gel APPLY 2 GRAMS TOPICALLY TO AFFECTED AREA FOUR TIMES A DAY. (APPLY TO SINGLE ELBOW, WRIST OR HAND. HAND INCLUDES PALM, FINGERS AND BACK OF HAND) 12/05 completed Not Available Not Available Not Available cholecalcif froilan (vitamin D3) 50 mcg (2,000 unit) capsule Take 1 capsule every day by oral route for 90 days. 2024 active Not Available Not Available Not Avai lable Vitamin D3 50 mcg (2,000 unit) tablet TAKE 1 TABLET 1 TIME EACH DAY active Not Available Not Available No t Available buprenorphi ne 8 mg-naloxone [address] 2 FILMS UNDER THE TONGUE AND ALLOW TO DISSOLVE 1 TIME EACH DAY active Not Available Not Available No t Available Anoro Ellipta 62.5 mcg-25 mcg/actuati on powder for inhalation INHALE 1 PUFF 1 TIME EACH DAY FOE COPD active Not Available Not Available No t Available naloxone 4 mg/actuatio n nasal spray ADMINISTE R A SINGLE SPRAY INTRANASA LLY INTO ONE NOSTRIL. CALL 911. MAY REPEAT X1. active Not Available Not Available No t Available Kloxxado 8 mg/actuatio n nasal spray ADMINISTE R 1 SPRAY IN ONE NOSTRIL FOR NO/SLOW BREATHING OR CANNOT WAKE AFTER OPIOID USE. CALL 911. REPEAT IN OTHER NOSTRIL IF SYMPTOMS CONTINUE. 12/05 completed Not Available Not Available Not Available albuterol 90 mcg-budeson ayse 80 mcg/actuati on HFA aerosol inhaler Inhale by inhalatio n route. 12/05 completed Not Available Not Available Not Available Vitals Date Recorded Body weight Body mass index (BMI) Body height Oxygen saturation Heart rate Body temperature Systolic And Diastolic Systolic And Diastolic Provider Name and Address Organization Details Last Updated DateTime 5 51464.8 6 g 20.5 kg/m2 165.1 cm 96 % 70 /min 98.3 [degF] 146/82 mm[Hg] 144/82 mm[Hg] Sonia Burks [employer] 5 14:33:25 Date Recorded Body height Body mass index (BMI) Body weight Body temperature Heart rate Oxygen saturation Systolic And Diastolic Provider Name and Address Organization Details Last Updated DateTime 165.1 cm 22.5 kg/m2 02438.9 7 g 97.4 [degF] 97.8 /min 96 % 131/78 mm[Hg] Dario Traorevis [employer] 5 09:05:17 Date Recorded Body height Body mass index (BMI) Body weight Provider Name and Address Organization Details Last Updated DateTime 03/02/2023 165.1 cm 18.7 kg/m2 29934.78 g Miriam Contreras [employer] 03/02/2023 13:36:40 Social History Question Answer Notes LastModified by Organization Details LastModified Time Tobacco Smoking Status Current Every Day Smoker SocialHis toryQuest ion: 'Tobacco/ Alcohol/S upplement s'; SocialHis toryRespo nse: 'Current tobacco smoker (CAD, CAP, COPD, PV)1 (DM)4'; Sonia luque, [employer]. 12/05/2024 14:38:41 Do You Have An Advance Directive? No Information not available 03/02/2023 Is Your Home Air Conditioned? Yes Information not available 03/02/2023 If You Are , What Was Your Level Of Alcohol Consumption Prior To ? None Information not available 12/05/2024 Do You Wear A Helmet When Biking? No Information not available 03/02/2023 Are You Blind Or Do You Have Difficulty Seeing? No Information not available 03/02/2023 What Is Your Level Of Caffeine Consumption? 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 None Information not available 12/05/2024 In The 14 Days Before Symptom Onset, Have You Had Close Contact With A Laboratory-confi rmed COVID-19 While That Case Was Ill? No Information not available 03/02/2023 In The 14 Days Before Symptom Onset, Have You Had Close Contact With A Person Who Is Under Investigation For COVID-19 While That Person Was Ill? No Information not available 03/02/2023 Have You Been To An Area Known To Be High Risk For COVID-19? No Information not available 03/02/2023 Are You Deaf Or Do You Have Serious Difficulty Hearing? No Information not available 03/02/2023 What Type Of Diet Are You Following? REGULAR Information not available 12/05/2024 What Is The Highest Grade Or Level Of School You Have Completed Or The Highest Degree You Have Received? [id number] Information not available 03/02/2023 Who Is Your Employer? On Medical Leave From [employer] Information not available 12/05/2024 How Many Days Of Moderate To Strenuous Exercise, Like A Brisk Walk, Did You Do In The Last 7 Days? 5 Information not available 12/05/2024 Have There Been Any Changes To Your Family Or Social Situation? Yes Information not available 03/02/2023 Are There Any Guns Present In Your Home? Yes Information not available 03/02/2023 Which Of Your Hands Is Dominant? Right Information not available 03/02/2023 What Is Your Home Situation? Other Information not available 12/05/2024 Where Do You Live? [facility] Information not available 03/02/2023 Do You Have A Medical Power Of Final Assembler? No Information not available 03/02/2023 What Was The Date Of Your Most Recent Tobacco Screening? 01/08/2025 [email or web address] Information not available 01/08/2025 Are There Any Occupational Health Risks Where You Work? No Information not available 12/05/2024 Do You Have Any Pets? Yes Information not available 03/02/2023 Do You Use Protection During Sex? Always Information not available 12/05/2024 What Is Your Relationship Status? Information not available 12/05/2024 Do You Use Your Seat Belt Or Car Seat Routinely? Yes Information not available 03/02/2023 Are You Sexually Active? No Information not available 12/05/2024 Do You Have Any Siblings? Yes Information not available 12/05/2024 Do You Have Smoke And Carbon Monoxide Detectors In Your Home? Yes Information not available 03/02/2023 At What Age Did You Start Smoking Tobacco? 21 Information not available 12/05/2024 Are You Passively Exposed To Smoke? No Information not available 03/02/2023 Are There Any Smokers In Your House? Yes Information not available 12/05/2024 How Much Tobacco Do You Smoke? 0.5 PPD Information not available 12/05/2024 Do You Participate In Social Media? Yes Information not available 03/02/2023 What Types Of Sporting Activities Do You Participate In? Walking. Playing With Grand Kids Information not available 12/05/2024 Do You Use Sunscreen Routinely? Yes Information not available 03/02/2023 Has Tobacco Cessation Counseling Been Provided? Yes Information not available 12/05/2024 On What Date Was Tobacco Cessation Counseling Provided? 01/08/2025 [email or web address] Information not available 01/08/2025 How Many Years Have You Smoked Tobacco? 30 Information not available 12/05/2024 Have You Recently Traveled Abroad? No Information not available 03/02/2023 Do You Have Difficulty Walking Or Climbing Stairs? No Information not available 03/02/2023 Are You Currently In School? No Information not available 03/02/2023 What Contraceptive Method Was Reported At Start Of This Visit? Female Sterilization Information not available 12/05/2024 Do You Have Any Dietary Restrictions? No Information not available 12/05/2024 Sex: Female Functional Status Question Answer Note LastModified by Organizat ion Details LastModified Time Do you or have you ever used smokeless tobacco? Never used smokeless tobacco Information not available 12/05/2024 Are you currently employed? Yes Information not available 03/02/2023 Do you have transportation difficulties? No Information not available 03/02/2023 Are you able to care for yourself independently? Yes Information not available 03/02/2023 Do you have difficulty dressing, bathing, grooming, or toileting? No Information not available 03/02/2023 Do you or have you ever used e-cigarettes or vape? Current user of electronic cigarettes Information not available 03/02/2023 What is your exercise level? Moderate Information not available 12/05/2024 Do you use any illicit or recreational drugs? No Information not available 03/02/2023 Do you or have you ever used any other forms of tobacco or nicotine? Yes VAPS Information not available 03/02/2023 What is your level of alcohol consumption? None Information not available 03/02/2023 Are you able to walk independently without assistance or assistive devices? YESWOREST Information not available 03/02/2023 Do you have difficulty doing errands alone? No Information not available 03/02/2023 What is your occupation? [employer] Information not available 03/02/2023 Mental Status Question Answer Note LastModified by Organizat ion Details LastModified Time Do you feel stressed (tense, restless, nervous, or anxious, or unable to sleep at night)? [id number] Information not available 03/02/2023 Do you have difficulty concentrating, remembering or making decisions? No Information no t available 03/02/2023 Family History Relationship Description Onset Age of this Age Resolved Age Notes LastModified by Organization Details LastModified Time Unspecified Relation Family history of Hypertension Relati ve: ''; Not available 12/05/2024 14:28:39 Mother Hypercholest erolemia Not available 2024 14:28:39 Mother Arthritis Not available 12/05/2024 14:28:39 Mother Hypertensive disorder Not available 2024 14:28:39 Sister Arthritis Not available 12/05/2024 14:28:39 Father Asthma Not available 03/2025 14:28:39 Father Arthritis Not available 12/05/2024 14:28:39 Notes:*Procedure Description : Documented family medical history in mother*Relative: Mother *Procedure Description: Family history of cerebrovascular accident*Relative: Unspecified Relation *Problem: Relative: ''; Medical History Condition Response Coronary Artery Disease N Other N Gout N Kidney Stones N Blood Diseases N Hyperthyroidism N Blood Transfusion N Breast Cancer N Emergency room visit since last appointm ent. N COPD N Depression Y Dermatologic Disorders N Hypothyroidism N Lung Disease N Developmental or Behavioral Disorders N Defects or Inherited Disease N Breast Problem N Difficulty Swallowing N Anesthesia Complications N History of STI N Meniere's disease N Anxiety Disorder Y Muscle, Joint, or Bone Problems N Autoimmune disease N Vision or Eye Problems N Arthritis N Polyps N Infertility N Mental Disorder N Congenital Anomalies N Acid Reflux (GERD) N Cancer N Stroke N Neurologic/Epilepsy N Endometriosis N Bladder or Kidney Problems N High Cholesterol Y Liver Disease N Organ Transplant N Psychiatric/Mental Health Condition N Fibromyalgia N Dialysis N Schizophrenia N Headaches N Kidney Disease N Allergies/Hayfever N Heart Problems N Ear or Hearing Problems N Hospitalizations N Learning Disorder N Artificial Joints N Thyroid Problems N GI Problems Y Acne N ADD/ADHD N Eating Disorder N Anemia N Constipation N Mental Illness N Ovarian Cancer N Diabetes N Bedwetting N Hepatitis/Liver Disease N Tuberculosis N Eczema N Diverticulitis N Abuse/Domestic Violence N Asthma N Trauma/Violence N Substance Abuse Y Reflux/GERD N Depression/ depression N Hepatitis N Heart Disease N Pulmonary Embolism N Tourette Syndrome N Chronic Ear Infections N Pre-Eclampsia N Hypertension Y Chicken Pox N Autism Spectrum Disorder (ASD) N Osteoporosis N Thrombophilias N Gynecological History Statement/Question Response Menses Monthly N HPV Vaccine N Date of Last Pap Smear Current Control Method Hysterectom y Age at Menarche 15 Most Recent Mammogram 03/08/2022 Age at First Child 21 Desired Control Method None Obstetrics History GPAL:G 7 P 3 2 3 3 Type Value Multiple Births 0 Full Term 3 Induced 0 Spontaneous 3 Premature 2 Living 3 Ectopics 0 Total 7 Immunizations Vaccine Type Date Status Note Provider Nam e and Address Organization Details Recorded Time COVID-19, mRNA, LNP-S, PF, 100 mcg/0.5mL dose or 50 mcg/0.25mL dose 01/16/2021 completed Sonia luque [facility] [employer] 12/05/2024 14:28:12 COVID-19, mRNA, LNP-S, PF, 100 mcg/0.5mL dose or 50 mcg/0.25mL dose 02/20/2021 completed Sonia Vice null, [facility] [employer] 12/05/2024 14:28:12 COVID-19, mRNA, LNP-S, PF, 100 mcg/0.5mL dose or 50 mcg/0.25mL dose 11/15/2021 completed Sonia Vice null, [facility] [employer] 12/05/2024 14:28:12 Tdap 02/04/2019 completed [facility] 12/05/2024 14:28:12 Past Encounters Encounter ID Performer Location Encounter Start Date Encounter Closed Date Diagnosis/Indication Diagnosis SNOMED-CT Code Diagnosis ICD10 Code Diagnosis IMO Codes Diagnosis Note [id number] Russell Dugan II, MD [facility] [address] [address] 03/02/2023 13:33:12 03/02/2023 14:44:44 Menopausal symptom 46944160 N95.1 Refill her estradiol. I did a Pap but told her if this is negative that she should not need any more. She has mammogram scheduled soon and colonoscop y is up-to-date . Gynecologi c examination 96783748 Z01.286 [id number] CHAPITO Marmolejo [address] [address] 12/05/2024 14:12:21 12/06/2024 08:24:53 Chronic obstructive pulmonary disease 80903803 J44.9 Gastroesop hageal reflux disease 484733257 K21.9 Essential hypertension 92443937 I10 Hyperlipidemia 73520963 E78.5 Generalize d anxiety disorder 45204991 F41.1 Depressive disorder 3548 9007 F32.A HIV screening 954003439 Z11.4 Hepatitis C screening 41 7722652 Z11.59 Dysuria 85557349 R30.0 [id number] Thania Gil APRN [address] [address] 01/08/2025 08:52:41 01/08/2025 09:27:47 Dysuria 60518030 R30.0 Acute urin chery tract infection 436763441 N39.0 Health Concerns Section Related Observation LastModified by Organization Detai ls LastModified Time None Recorded Concern Status LastModified by Organization Details LastModified Time None Recorded Advance Directives Directive N: Payers Insurance Date Sequence Insurance Name Policy Number Policy Brantley Covered Member ID Brantley Member ID Guarantor Name 02/14/2025 1 [employer] [facility] (MEDICAID HMO) Paulino Gleason [id number] Paulino Gleason Notes Date Note Type Note Provider Name and Address Organization Details Recorded Time 03/02/2023 text/html She is here for an annual exam. She wants to have a Pap smear. She has had a hysterectomy because of a history of issues. She has had a lot of recent medical problems including a GI bleed that took her hemoglobin down to about 5. She is going to have surgery soon to repair the ulcer. Her main complaint today is right lower quadrant pain. She has had all of her gynecologic organs removed. Russell Dugan II, MD [address] [place] [address], [id number], [employer] 03/02/2023 14:05:21 12/05/2024 text/html ROS as noted in the HPI Patient presents to establish care at [facility].Has a history of COPD, GERD, HTN, HLD, anxiety, depressive disorder.Overall doing ok.She does have dysuria. CHAPITO Marmolejo [address] [place], [address], [employer] 12/10/2024 12:46:21 01/08/2025 text/html ROS as noted in the HPI Patient presented to clinic today and reports that she has been having dysuria x 2 days with lower abdominal pain and and right flank pain. Patient denies any fever or hematuria. Patient also reports that she thinks she has a yeast infection and complains of irritation, discharge and pruritus in vaginal area. Patient has no additional complaints or concerns for today's visit. Thania Gil APRN [address] [place], [address], [employer], Appointedd. 01/08/2025 09:36:04 OBGyn Episode No OBEpisode recorded.
[2025-09-07] MEDS: ONDANSETRON 4MG ODT 4 MG SL (15:15)
--- NOTE | 2025-09-07 15:16 | PC.NURSE ---
c-collar placed on pt upon arrival per
--- NOTE | 2025-09-07 15:33 | PC.NURSE ---
Per MD reviewed charts and pt was given diluadid in the past in this ER, pt reports that she has had dilaudid and no issues were noted, md at bedside and verbal order for diluadid 0.5mg IM given.
--- NOTE | 2025-09-07 15:37 | CT_ITS ---
PROCEDURE INFORMATION: Exam: CT Maxillofacial Without Contrast Exam date and time: 09/07/2025 4:12 PM Age: 55 years old Clinical indication: Injury or trauma; Fall; Blunt trauma (contusions or hematomas); Forehead; Additional info: Fall, hit to face TECHNIQUE: Imaging protocol: Computed tomography of the face without contrast. Radiation optimization: All CT scans at this facility use at least one of these dose optimization techniques: automated exposure control; mA and/or kV adjustment per patient size (includes targeted exams where dose is matched to clinical indication); or iterative reconstruction. COMPARISON: CT FACIAL BONES WO CON 08/21/2022 9:51 PM FINDINGS: Paranasal sinuses: No air-fluid levels. Orbital cavities: Globes are intact. Bones: No acute fracture. Soft tissues: Right supraorbital soft tissue swelling. IMPRESSION: No acute fracture is identified.
--- NOTE | 2025-09-07 15:37 | CT_ITS ---
PROCEDURE INFORMATION: Exam: CT Cervical Spine Without Contrast Exam date and time: 09/07/2025 4:15 PM Age: 55 years old Clinical indication: Injury or trauma; Fall; Blunt trauma TECHNIQUE: Imaging protocol: Computed tomography of the cervical spine without contrast. Radiation optimization: All CT scans at this facility use at least one of these dose optimization techniques: automated exposure control; mA and/or kV adjustment per patient size (includes targeted exams where dose is matched to clinical indication); or iterative reconstruction. COMPARISON: CT CERVICAL SPINE WO CON 08/21/2022 9:53 PM FINDINGS: Bones: Straightening of cervical lordosis, nonspecific possibly positional or muscle spasm. Visualized vertebral body heights are preserved. Lungs: No focal airspace consolidation in the lung apices. Soft tissues: See Bones finding. IMPRESSION: Visualized vertebral body heights are preserved. If symptoms persist or spinal cord compression or nerve root compression is a concern clinically, correlation with MRI is necessary.
--- NOTE | 2025-09-07 15:37 | CT_ITS ---
PROCEDURE INFORMATION: Exam: CT Head Without Contrast Exam date and time: 09/07/2025 4:10 PM Age: 55 years old Clinical indication: Injury or trauma; Fall; Blunt trauma (contusions or hematomas); Additional info: Fall, head lac TECHNIQUE: Imaging protocol: Computed tomography of the head without contrast. Radiation optimization: All CT scans at this facility use at least one of these dose optimization techniques: automated exposure control; mA and/or kV adjustment per patient size (includes targeted exams where dose is matched to clinical indication); or iterative reconstruction. COMPARISON: CT HEAD/BRAIN WO CON 08/21/2022 9:48 PM FINDINGS: Brain: See Bones finding. Cerebral ventricles: Cavum septum pellucidum Paranasal sinuses: No fluid levels. Mastoid air cells: Visualized mastoid air cells are well aerated. Bones: 1.7 x 1.0 cm area of high attenuation in the right cerebellum adjacent to temporal bone, probably artifactual, can not entirely exclude intracranial hemorrhage. Soft tissues: Right frontolateral soft tissue swelling with few foci of soft tissue emphysema, probably penetrating injury. IMPRESSION: 1.7 x 1.0 cm area of high attenuation in the right cerebellum adjacent to temporal bone, probably artifactual, can not entirely exclude intracranial hemorrhage. Recommend follow-up with CT head in 4-6 hours unless clinically indicated earlier. COMMENTS: Please note that noncontrast head CT is not sensitive for the detection of ischemic infarct. If ischemic infarct is of clinical concern, additional imaging with CTA head/neck and brain MRI is recommended if capable.
--- NOTE | 2025-09-07 15:42 | HMH.EDGENADL ---
Discharge Plan Disposition Patient Disposition: Left Against Medical Advice Prescriptions Prescriptions: New ondansetron 4 mg tablet,disintegrating 4 mg PO Q8H PRN (Reason: nausea and vomiting) Qty: 30 0RF No Action metoprolol succinate 25 mg tablet extended release 24 hr 25 mg PO Patient Comments: TAKE 1 TABLET 1 TIME EACH DAY FPR BLOOD PRESSURE amlodipine 10 mg tablet 10 mg PO Patient Comments: TAKE 1 TABLET 1 TIME EACH DAY FOR BLOOD PRESSURE fluconazole 150 mg tablet 150 mg PO Q3D Qty: 2 0RF Rx Instructions: may repeat second dose 72 hrs after first dose if symptoms persist ciprofloxacin HCl 500 mg tablet 500 mg PO Q12H 5 Days Qty: 10 0RF ibuprofen 800 mg tablet 800 mg PO Q8H PRN (Reason: pain) Qty: 30 0RF phenazopyridine [Pyridium] 100 mg tablet 100 mg PO QPC PRN (Reason: pain) Qty: 6 0RF atorvastatin 40 mg tablet 40 mg PO HS Patient Comments: TAKE 1 TABLET BY MOUTH AT BEDTIME NIGHTLY FOR CHOLESTEROL estradiol 2 mg tablet 2 mg PO DAILY Patient Comments: TAKE 1 TABLET BY MOUTH ONCE DAILY. APPOINTMENT REQUIRED FOR FUTURE REFILLS. NO MORE. duloxetine 60 mg capsule,delayed release(DR/EC) 60 mg PO DAILY phenazopyridine 200 mg Tablet 200 mg PO TID 2 Days Qty: 6 0RF ondansetron 4 mg Tablet,Disintegrating 4 mg PO Q8H PRN (Reason: Nausea) Qty: 12 0RF fluconazole 150 mg tablet 150 mg PO ONCE Qty: 1 3RF ibuprofen [IBU] 800 mg tablet 800 mg PO Q8HP PRN (Reason: Moderate Pain) Qty: 30 0RF ciprofloxacin HCl [Cipro] 500 mg tablet 500 mg PO BID 7 Days Qty: 14 0RF Referrals Follow up/Referrals: Nikki Jacinto PA [Primary Care Provider, Medical] - See instructions Activity Restrictions/Add. Instructions Additional Instructions/Restrictions: You were seen and evaluated in the emergency department. It was recommended that you stay for further observation, and transfer to was recommended. You may take Zofran and Tylenol as needed for symptoms. We strongly recommend you return to the emergency department for worsening headache, confusion, or persistent vomiting. Sutures are to be removed in 5 to 7 days. Clinical Impressions Clinical Impression: Intracranial bleeding, Laceration Print Language Print Language: Hungarian Discharge ED Provider: Stoney,Jennifer General Adult HPI General Chief complaint: Fall Stated complaint: Laceration Time Seen by Provider: 09/07/25 15:35 Mode of Arrival: Wheelchair Source of Information: Patient Description of Symptoms (Recalled from ER Triage Doc. by RN): slipped and hit head on chair, denies loc at the time, during that period and being in the bathroom pt is unsure how she got to the bathroom, daughter reports that pt was in and out of it on the way to ER. PT is awake and talking upon arrival to room, laceration noted on anterior head History of Present Illness HPI narrative: This is a 55 female past medical history low blood count , Suboxone use, abdominal surgery for ovarian cancer who presents to the emergency department after a fall with bleeding head laceration. She states she was ambulating in the home and then tripped, fell, hitting her head on furniture. She did have brief LOC. Denies ASA or blood thinners. Reporting CHU and nausea. Denies neck pain, CP, abd pain, back pain or extremity pain. Currently holding a towel to her head to control bleeding. Related Data Home Medications ?Medication ?Instructions ?Recorded ?Confirmed atorvastatin 40 mg tablet 40 mg PO HS 10/24/24 02/23/25 duloxetine 60 mg capsule,delayed 60 mg PO DAILY 10/24/24 02/23/25 release estradiol 2 mg tablet 2 mg PO DAILY 10/24/24 02/23/25 amlodipine 10 mg tablet 10 mg PO 02/23/25 02/23/25 metoprolol succinate 25 mg 25 mg PO 02/23/25 02/23/25 tablet,extended release 24 hr Previous Rx's ?Medication ?Instructions ?Recorded ondansetron 4 mg disintegrating 4 mg PO Q8H PRN Nausea #12 tabs 10/24/24 tablet phenazopyridine 200 mg tablet 200 mg PO TID 2 days #6 tabs 10/24/24 ciprofloxacin HCl 500 mg tablet 500 mg PO BID 7 days #14 tabs 10/31/24 (Cipro) fluconazole 150 mg tablet 150 mg PO ONCE 1 dose #1 tab 10/31/24 ibuprofen 800 mg tablet (IBU) 800 mg PO Q8HP PRN Moderate Pain 10/31/24 #30 tabs ciprofloxacin HCl 500 mg tablet 500 mg PO Q12H 5 days #10 tabs 02/23/25 fluconazole 150 mg tablet 150 mg PO Q3D 2 doses #2 tabs 02/23/25 ibuprofen 800 mg tablet 800 mg PO Q8H PRN pain #30 tabs 02/23/25 phenazopyridine 100 mg tablet 100 mg PO QPC PRN pain 6 doses #6 02/23/25 (Pyridium) tabs ondansetron 4 mg disintegrating 4 mg PO Q8H PRN nausea and 09/07/25 tablet vomiting #30 tabs Allergies Allergy/AdvReac Type Severity Reaction Status Date / Time aspirin Allergy Unknown Verified 02/23/25 16:58 allergy reaction bee venom protein (honey bee) Allergy Unknown Verified 02/23/25 16:58 allergy reaction morphine Allergy Unknown Verified 02/23/25 16:58 allergy reaction PFSH PFSH Disclaimer: The information contained in this section may have been updated after the patient was seen, as this information can be updated by other users. Medical History Cervical cancer Ovarian cancer Kidney stone Urinary tract infection History of COVID-19 Sinus headache Ulcerative colitis Allergies Hypertension Hyperlipidemia Edema History of anemia GI bleed Coronary artery disease PAD (peripheral artery disease) COPD (chronic obstructive pulmonary disease) ILD (interstitial lung disease) Renal artery stenosis Tobacco abuse Depression with anxiety Surgical History H/O total hysterectomy History of colonoscopy History of esophagogastroduodenoscopy (EGD) History of hand surgery History of left heart catheterization History of renal stent History of knee surgery Family History Mother Surgical complication COPD (chronic obstructive pulmonary disease) Stroke Father COPD (chronic obstructive pulmonary disease) Pneumonia Other Aneurysm Family history of hyperlipidemia Family history of hypertension Social History Smoking Status: Unknown if ever smoked years smoked: 20 smoking status stop date: 12/16/22 alcohol intake: never substance use type: denies use current occupational status: employed Travel in the last 8 weeks?: None household members: spouse housing: house caffeine: No Have you lived/traveled outside [place] in past 30 days?: No Contact w/someone who lives/traveled outside [place] past 30 days?: No Exposure to someone with infectious disease in past 14 days?: No Do you have a fever (greater than 100.4 F or 38 C)?: No Have you tested positive for COVID-19?: No Exposed to someone with COVID-19 in past 14 days?: No Do you have a sore throat?: No Do you have a cough?: No Do you have any weakness?: No Do you have any diarrhea?: No Are you experiencing any unusual bleeding?: No Do you have any muscle aches/pain?: No Do you have any abdominal pain?: No Are you experiencing loss of taste or smell?: No Other Medical History Have you received the Flu Vaccine for this season: No Have you received the Pneumonia Vaccine: No ROS Obtained: Yes All systems reviewed & no additional complaints except as documented Physical Exam General General appearance: alert Comment: holding towel to head Head Head exam: other (large gaping laceration to R forehead with active arterial pulsatility) Eye Eye exam: Present normal appearance, PERRL and EOMI ENT ENT exam: Present mucous membranes moist Neck Neck exam: Present normal inspection and other (c collar applied) Chest Chest inspection: Present symmetric chest wall rise; Absent tenderness Respiratory Respiratory exam: Absent respiratory distress, wheezes or accessory muscle use Cardiovascular Cardiovascular exam: Present regular rate and normal rhythm Abdominal Exam Abdominal exam: Present soft; Absent tenderness or guarding Extremities Exam Extremities exam: Present full ROM; Absent tenderness Neurological Exam Neurological exam: Present alert and oriented X3 Psychiatric Psychiatric exam: Present normal affect Skin Skin exam: Present warm and dry Medical Decision Making Medical Records Screening: Per USPSTF and CDC recommendations, given the prevalence of disease in our region, it is our hospital?s policy to screen for HIV and viral Hepatitis for all patients aged 18 and over and those with ongoing risk factors. Tobias Inquiry Pt receiving controlled substance: Yes Tobias was queried for this patient: No Risks and benefits of using a controlled substance: were discussed with pt by me Vital Signs: 09/07/25 14:59 09/07/25 15:13 09/07/25 15:30 Pulse Rate 64 70 Pulse Rate [Left Radial] 69 Respiratory Rate 18 Blood Pressure 132/74 139/75 Blood Pressure [Right Arm] 132/74 Blood Pressure Mean [Right Arm] 93 02 Sat by Pulse Oximetry 96 96 96 Oxygen Delivery Method Room Air Room Air Room Air 09/07/25 16:00 09/07/25 16:30 09/07/25 17:00 Pulse Rate 63 63 63 Pulse Rate [Left Radial] Respiratory Rate Blood Pressure 141/73 H 130/67 137/82 Blood Pressure [Right Arm] Blood Pressure Mean [Right Arm] 02 Sat by Pulse Oximetry 100 100 99 Oxygen Delivery Method Room Air Room Air Lab Data Lab Results 09/07/25 15:30: WBC 9.5, RBC 3.75 L, Hgb 12.3, Hct 35.5 L, MCV 94.7, MCH 32.8 H, MCHC 34.6, RDW 11.7, Plt Count 204, MPV 11.1 H, Neut % (Auto) 76.0, Lymph % (Auto) 18.7, Cotton % (Auto) 4.0, Eos % (Auto) 0.8, Baso % (Auto) 0.3, Neut # (Auto) 7.2, Lymph # (Auto) 1.8, Cotton # (Auto) 0.4, Eos # (Auto) 0.1, Baso # (Auto) 0.0, Sodium 131 L, Potassium 4.1, Chloride 101, Carbon Dioxide 24, Anion Gap 10.1, BUN 19 H, Creatinine 0.90, Estimated Creat Clear 61, Estimated GFR 65, Est GFR ( Amer) 79, Glucose 111 H, Calcium 9.5, Total Bilirubin 0.7, AST 41 H, ALT 24, Alkaline Phosphatase 71, Total Protein 8.3 H D, Albumin 4.5, Globulin 3.8 H, Albumin/Globulin Ratio 1.2 09/07/25 15:30 09/07/25 15:30 Orders (Tests/Meds): ED MEDICATIONS Discontinued Medications Generic Name Dose Route Start Last Admin Trade Name Freq PRN Reason Stop Dose Admin Hydromorphone HCl 0.5 mg 09/07/25 15:31 09/07/25 15:44 Hydromorphone 2mg/Ml Syringe IM 09/07/25 15:32 0.5 mg ONCE ONE Administration Ondansetron HCl 4 mg 09/07/25 15:14 09/07/25 15:15 Ondansetron 4mg Odt SL 09/07/25 15:15 4 mg ONCE ONE Administration ORDERS Category Date Time Status CT cervical spine wo con Stat Cat Scan 09/07/25 15:[address] facial bones wo con Stat Cat Scan 09/07/25 15:[address] head/brain wo con Stat Cat Scan 09/07/25 15:37 Completed CBC w/Auto Diff [Complete Blood Count Auto Diff] Stat Lab 09/07/25 15:30 Completed CMP [Comprehensive Metabolic Panel] Stat Lab 09/07/25 15:30 Completed Medical Decision Narrative: In summary, this is a 55y/o female presenting the emergency department for fall with actively bleeding head laceration. Differential diagnosis includes but is not limited to: Laceration, skull fracture, arterial injury, intracranial hemorrhage, cervical spine injury, anemia On my initial assessment, the patient is hemodynamically stable and alert and oriented, however has an actively bleeding head laceration concerning for arterial involvement. Direct pressure was held by myself immediately on evaluation. Lidocaine with epinephrine was sequentially injected into the wound which achieved improved hemostasis, however there were now 2 specific foci of what appeared to be pulsatile arterial bleeding. Direct pressure continually held at the sites and additional lidocaine with epinephrine injected specifically here. This achieved hemostasis. Laceration repair performed immediately afterwards to provide definitive hemostasis. It was felt that this repair needed to be performed prior to transport to CT scanner due to the amount of hemorrhage. Of note, the patient states she has anaphylactic allergies to aspirin and morphine. Has tolerated Dilaudid in the past Of note, the patient states she has anaphylactic allergies to aspirin and morphine. Tolerated Dilaudid in the past. She was given 0.5 mg of IM Dilaudid for pain control in addition to Zofran during laceration repair for reported nausea. Labs personally interpreted which demonstrate no leukocytosis. Hemoglobin is 12.3. Platelet count within normal limits. CMP notable for mild hyponatremia with sodium of 131. No SULAIMAN. Glucose 111. Mildly elevated AST. CT personally interpreted which demonstrate no acute injury of the cervical spine. No facial fractures. Radiology notes a questionable right cerebellar hemorrhage. On my review of images, I can see this hyperdensity on multiple CT slices. Additionally, I am concerned about a potential small subdural underlying the right frontal region near her laceration. I discussed the CT scan results with the patient. I recommended contacting [facility] for their neurosurgeon/trauma specialist to review her CT scans. With concern for potential multifocal hemorrhage, I recommended she at the very least needs a repeat CT scan in 4 to 6 hours with potential monitoring overnight. The patient does not want to stay in the emergency department for any further scans. She remains fully alert and oriented. She has decision-making capacity and is able to verbalize the risks of leaving AGAINST MEDICAL ADVICE back to me including worsening hemorrhage, herniation, or even . She would still like to leave the emergency department. She agrees to return should her symptoms worsen. She was discharged with wound care instructions and a prescription for Zofran. Procedures Laceration Laceration 1: Site: scalp Side (If applicable): right Size (cm): 4 Description: linear Depth: simple, single layer Local Anesthetic: other anesthetic (1% lidocaine with epinephrine) Amount of anesthesia used (mL): 10 Pre-repair: wound explored, irrigated extensively and deep structures intact Skin layer closed with: nylon Size (cm): 4-0 Number of sutures: 10 Technique: simple, interrupted Critical Care Critical Care Time Critical Care Time: No
[2025-09-07] MEDS: HYDROMORPHONE 2MG/ML SYRINGE 0.5 MG IM (15:44)
[2025-09-07 15:51] LABS: Hematocrit 35.5 % (37.0-47.0); Hemoglobin 12.3 g/dL (12.2-16.2); Immature Granulocytes % 0.2 %; Mean Corpuscular HGB Conc 34.6 g/dL (31.8-35.4); Mean Corpuscular Hemoglobin 32.8 pg (27.0-31.2); Mean Corpuscular Volume 94.7 fl (81-99); Nucleated Red Blood Cells % 0 %; Platelet Count 204 K/mm3 (142-424); Red Blood Count 3.75 M/mm3 (4.20-5.40); Red Cell Distribution Width-SD 40.4 fL; White Blood Count 9.5 K/mm3 (4.8-10.8)
[2025-09-07 15:58] LABS: Alanine Aminotransferase 24 U/L (12-78); Albumin Level 4.5 g/dl (3.5-5.0); Albumin/Globulin Ratio 1.2 (1.1-1.8); Alkaline Phosphatase 71 U/L (38-126); Anion Gap 10.1 mEq/L (5-15); Aspartate Amino Transferase 41 U/L (14-36); Bilirubin,Total 0.7 mg/dl (0.2-1.3); Blood Urea Nitrogen 19 mg/dl (7-17); Calcium 9.5 mg/dl (8.4-10.2); Carbon Dioxide 24 mmol/L (22.0-30.0); Chloride 101 mmol/L (98-107); Creatinine Clearance Estimated 61 mL/min (50-200); Creatinine,Serum 0.90 mg/dl (0.52-1.04); Estimated Glomerular Filt Rate 65 ml/min (>60); GFR (African American) 79 ML/MIN (>60); Globulin 3.8 g/dL (1.3-3.2); Glucose 111 mg/dl (74-100); Potassium 4.1 mmoL/L (3.5-5.1); Sodium 131 mmol/L (136-145); Total Protein,Serum 8.3 g/dl (6.3-8.2)
--- NOTE | 2025-09-07 16:55 | PC.NURSE ---
pt reports improvement in pain, given extra sheet for comfort.
== END 2025-09-07 18:08 | disposition left against medical advice (07) ==
PROVIDERS: Emergency Provider Student in an Organized Health Care Education/Training Program; PCP Physician Assistant
DX: S01.81XA Laceration without foreign body of other part of head, initial encounter (principal); R94.02 Abnormal brain scan; E87.1 Hypo-osmolality and hyponatremia; R11.0 Nausea; W01.190A Fall on same level from slipping, tripping and stumbling with subsequent striking against furniture, initial encounter
CPT/HCPCS: 12013; 70450; 70486; 72125; 80053; 85025; 96374; 99285; J1171; J2004; Q0162